=== PATIENT | male | born 1960 | race Caucasian/White ===

== ENCOUNTER 2024-08-02 14:37 | Emergency (ER) | payer OTHER, MEDICARE, MEDICAID, SELFPAY ==
[2024-08-02] VITALS (7 sets, daily range): BP systolic 110–137; BP diastolic 72–84; PULSE 84–102; RESP 14–16; TEMP 36.8; O2SAT 97–99; BMI 29.0
[2024-08-02 15:22] LABS: MANUAL DIFF FLAG NO
[2024-08-02 15:29] LABS: Basophils Percent Auto 0.6 % (0-2); Eosinophils Absolute Auto 0.3 X10*3/uL (0.0-0.4); Eosinophils Percent Auto 4.1 % (0-4); Hematocrit 33.5 % (42.0-52.0); Hemoglobin 11.8 g/dl (14.0-18.0); Imm Gran Abs Auto 0.02 X10*3/uL (0.00-0.03); Imm Gran Pct Auto 0.3 % (0.0-0.4); Lymphocytes Absolute Auto 1.2 X10*3/uL (1.2-4.9); Lymphocytes Percent Auto 18.1 % (20-40); Mean Corpuscular HGB Conc 35.2 g/dl (31.0-36.0); Mean Corpuscular Hemoglobin 33.2 pg (27.0-33.0); Mean Corpuscular Volume 94.4 fL (80.0-98.0); Mean Platelet Volume 10.4 fL (9.4-12.4); Monocytes Absolute Auto 0.7 X10*3/uL (0.1-1.2); Neutrophils Absolute Auto 4.4 x10*3/uL (2.0-8.3); Neutrophils Percent Auto 65.9 % (45-73); Platelet Count 146 X10*3/uL (160-400); Red Blood Count 3.55 X10*6/uL (4.60-5.80); Red Cell Distribution Width 16.6 % (11.0-16.0); White Blood Count 6.6 X10*3/uL (4.8-10.8)
--- OUTSIDE RECORDS SUMMARY | 2024-08-02 15:45 | XMS_ITS | Continuity of Care Document ---
Author Organization [facility] ter Address [address] [place] [id number]- Care Team Providers Care Home Energy Inspector Name Role Phone Not on Staff, PCP Primary Care Physician Unavail able Encounter [facility] Date(s): 01/13/24 - 01/14/[address] [address]- Encounter Diagnosis Osteoarthritis(Final) - 01/14/24 Discharge Disposition: A-D/C Home Attending Physician: Ltaricia Menendez DO Admitting Physician: Latricia Menendez DO Referring Physician: Not on Staff, Referring MD Allergies, Adverse Reactions, Alerts Substance Reaction Severity Status morphine Active Percocet 7.5/325 Active Immunizations Given and Recorded Vaccine Date Status Refusal Reason influenza virus vaccine, inactivated 08/27/23 Give n influenza virus vaccine, inactivated 09/04/19 Caleb rded tetanus/diphtheria/pertussis, acel(Tdap) 09/04/19 Recorded tetanus/diphtheria/pertussis, acel(Tdap) 10/28/13 Recorded Medications acamprosate 333 mg oral delayed release tablet 2 tablet = 666 mg, By Mouth, 3 times a day, # 180 tablet, 0 Refills, Maintenance, 08/28/23 10:01:00EDT, CR Tablet, [facility], Partial fill upon patient request if the prescription is for a schedule II opioid drug., 175, cm, 08/28/23 7:... Start Date: 08/28/23 Stop Date: 09/27/23 Status: Ordered divalproex sodium 250 mg oral enteric coated tablet = 250 mg, By Mouth, 2 times a day, # 120 tablet, 0 Refills, Maintenance, 08/28/23 9:58:00 EDT, Tablet, [facility], Partial fill upon patient request if the prescription is for a schedule II opioid drug., 175, cm, 08/28/23 7:33:00 EDT, He... Start Date: 08/28/23 Stop Date: 10/27/23 Status: Ordered levothyroxine 0.1 mg oral tablet = 200 mcg, By Mouth, Daily, Dose will be adjusted according to repeat lab. Lab to be done in 4 weeks., # 120 tablet, 0 Refills, Maintenance, 08/28/23 9:58:00 EDT, Tablet, [facility], Partial fill upon patient request if the prescription... Start Date: 08/28/23 Stop Date: 10/27/23 Status: Ordered potassium chloride 20 mEq oral tablet, extended release 1 tablet = 20 mEq, By Mouth, Daily, # 7 tablet, 0 Refills, Maintenance, 01/14/24 13:41:00 EST, ER Tablet, [facility], Partial fill upon patient request if the prescription is for a schedule II opioid drug., 175, cm, 08/28/23 10:58:00 EDT... Start Date: 01/14/24 Stop Date: 01/21/24 Status: Ordered risperiDONE 0.25 mg oral tablet 0.25 mg, 1, tablet, By Mouth, Daily at bedtime, # 4 tablet, Refills 0, Tot. Refills 0, Maintenance,08/28/23 9:59:00 EDT, Route to Pharmacy Electronically, [facility], Partial fill uponpatient request if the prescription is for a schedu... Start Date: 08/28/23 Stop Date: 09/01/23 Status: Ordered Walker See Instructions, # 1 each, Maintenance, Use when ambulating for unsteady gait, 01/14/24 13:46:00 EST, Supply Start Date: 01/14/24 Status: Ordered Walker See Instructions, # 1 each, Maintenance, Use when ambulating for unsteady gait, 01/14/24 13:48:00 EST, Supply Start Date: 01/14/24 Status: Ordered Problem List Condition Confirmation Course Effective Dates Status Health St atus Informant Alcohol 1 Confirmed Active Anemia Confirmed Active Bipolar disease, chronic Confirmed Active PE - Pulmonary embolism Confirmed Active Post traumatic stress disorder (PTSD) Confirmed Active Tobacco user Confirmed Active 1abuse Results Radiology Reports * Exam Date Time Procedure Performing Provider Status 01/13/24 4:25 PM Chest 2 Views Frontal and Lat Eleanor Hand; Auth (Verified) Notes: (Chest 2 Views Frontal and Lat) Reason For Exam: Cough RESULT: Chest 2 Views Frontal and Lat Chest 2 Views Frontal and Lat INDICATION/CLINICAL QUESTION: Hx of Present Illness: Falls weakness, ETOH; Reason: Cough; Clinical Question(s): Pneumonia / Pneumonia TECHNIQUE: Frontal and lateral views of the chest. COMPARISON: 08/24/2023. FINDINGS: LINES AND TUBES: None. LUNGS AND PLEURA: RIGHT CHEST: The right lung is clear and there is no right effusion. LEFT CHEST: The left lung is clear and there is no left effusion. HEART, MEDIASTINUM AND DEBBIE: The heart is of normal size. The mediastinum and debbie are normal. BONES AND SOFT TISSUES: Fracture middle third left clavicle. This was present previously. No new bony abnormality. IMPRESSION: 1. No active disease in chest. WSN: [id number] Ordering Physician: Balta Mathis Dictated By: Venkat Bonner MD Dictated Date/Time: 01/13/24 4:45 pm Reviewed By: Venkat Bonner MD Signed By: Venkat Bonner MD Signed Date/Time: 01/13/24 4:45 pm Transcribed By: BELKYS Transcribed Date/Time: 01/13/24 4:43 pm * Exam Date Time Procedure Performing Provider Status 01/13/24 2:39 PM XR Hip Bilat 2 Views W/AP Pelvis Angela Lucia; Omega (Verified) Notes: (XR Hip Bilat 2 Views W/AP Pelvis) Reason For Exam: Trauma RESULT: Hip Bilat 2 Views W/ AP Pelvis Hip Bilat 2 Views W/ AP Pelvis Reason: Weakness and fall; Trauma; Clinical Question(s): Fracture COMPARISON: None. FINDINGS: No fracture or dislocation. Moderate degenerative joint space narrowing of the bilateral hip and sacroiliac joints. Normal soft tissues. IMPRESSION: Degenerative changes of the hips and sacroiliac joints without evidence of an acute fracture or dislocation. I have personally reviewed the images and I agree with this report. WSN: [id number] Ordering Physician: Balta Mathis Dictated By: Frantz Lucas MD Dictated Date/Time: 01/13/24 3:07 pm Reviewed By: Omar Jones MD, V Signed By: Omar Jones MD, V Signed Date/Time: 01/13/24 3:12 pm Transcribed By: BELKYS Transcribed Date/Time: 01/13/24 3:04 pm * Exam Date Time Procedure Performing Provider Status 01/13/24 2:39 PM Knee 1 or 2 Views Left Jose Loera; Auth (Verified) Notes: (Knee 1 or 2 Views Left) Reason For Exam: Trauma RESULT: Knee 1 or 2 Views Left Knee 1 or 2 Views Left, 2 views Hx of Present Illness: Falls weakness, ETOH; Reason: Trauma; Clinical Question(s): Fracture COMPARISON: None. FINDINGS: No bone lesions or fractures. Mild tricompartmental degenerative osteoarthritis but no evidence of osteochondral defect or intra-articular loose body. No evidence of joint effusion. Minimal arterial calcifications posteriorly. IMPRESSION: Mild tricompartmental degenerative osteoarthritis but no acute abnormality. WSN: [id number] Ordering Physician: Balta Mathis Dictated By: Omar Jones MD, V Dictated Date/Time: 01/13/24 2:43 pm Reviewed By: Omar Jones MD, V Signed By: Omar Jones MD, V Signed Date/Time: 01/13/24 2:43 pm Transcribed By: BELKYS Transcribed Date/Time: 01/13/24 2:43 pm * Exam Date Time Procedure Performing Provider Status 01/13/24 2:39 PM Knee 1 or 2 Views Right Maryam Loera; Auth (Verified) Notes: (Knee 1 or 2 Views Right) Reason For Exam: Trauma RESULT: Knee 1 or 2 Views Right Knee 1 or 2 Views Right, 2 views Hx of Present Illness: Falls weakness, ETOH; Reason: Trauma; Clinical Question(s): Fracture COMPARISON: None. FINDINGS: No bone lesions or fractures. Mild tricompartmental degenerative osteoarthritis but no evidence of osteochondral defect or intra-articular loose body. No evidence of joint effusion. IMPRESSION: Mild tricompartmental degenerative osteoarthritis but no acute abnormality. WSN: [id number] Ordering Physician: Balta Mathis Dictated By: Omar Jones MD, V Dictated Date/Time: 01/13/24 2:42 pm Reviewed By: Omar Jones MD, V Signed By: Omar Jones MD, V Signed Date/Time: 01/13/24 2:42 pm Transcribed By: BELKYS Transcribed Date/Time: 01/13/24 2:42 pm * Exam Date Time Procedure Performing Provider Status 01/13/24 2:[address] Cervical Spine W/O Contrast Lolita Echeverria; Auth (Verified) Notes: (CT Cervical Spine W/O Contrast) Reason For Exam: Trauma RESULT: CT Cervical Spine W/O Contrast Examination: Noncontrast head CT and noncontrast CT of the cervical spine performed on 01/13/2024. History: Falls. Weakness. Ethanol. Technique and findings: Noncontrast head CT: Contiguous 5 mm axial images were obtained from the skull base to the vertex without intravenous contrast. A dose modulated weight-based protocol was used. Comparison is made to a prior study dated 08/24/2023. The visualized sinuses are free from disease. The ventricular system and subarachnoid spaces are within normal limits. There is no intracranial hemorrhage, mass effect, or midline shift. No intra- or extra-axial fluid collections are identified. The osseous structures are unremarkable. Noncontrast CT of the cervical spine: Contiguous axial images were obtained from the skull base through the thoracic inlet without intravenous contrast. Sagittal and coronal reformatted images are provided. A dose modulated weight-based protocol was used. No fractures are demonstrated. There is no malalignment. There is no traumatic disc herniation or epidural hematoma. Deformity of the left clavicle is consistent with prior trauma. The lung apices are unremarkable. IMPRESSION: There is no acute intracranial abnormality. There is no acute osseous abnormality within the cervical spine. WSN: [id number] Ordering Physician: Balta Mathis Dictated By: Nely Landis MD Dictated Date/Time: 01/13/24 2:12 pm Reviewed By: Nely Landis MD Signed By: Nely Landis MD Signed Date/Time: 01/13/24 2:12 pm Transcribed By: BELKYS Transcribed Date/Time: 01/13/24 2:08 pm * Exam Date Time Procedure Performing Provider Status 01/13/24 2:[address] Head/Brain W/O Contrast Jeison Echeverria; Auth (Verified) Notes: (CT Head/Brain W/O Contrast) Reason For Exam: Trauma RESULT: CT Head/Brain W/O Contrast Examination: Noncontrast head CT and noncontrast CT of the cervical spine performed on 01/13/2024. History: Falls. Weakness. Ethanol. Technique and findings: Noncontrast head CT: Contiguous 5 mm axial images were obtained from the skull base to the vertex without intravenous contrast. A dose modulated weight-based protocol was used. Comparison is made to a prior study dated 08/24/2023. The visualized sinuses are free from disease. The ventricular system and subarachnoid spaces are within normal limits. There is no intracranial hemorrhage, mass effect, or midline shift. No intra- or extra-axial fluid collections are identified. The osseous structures are unremarkable. Noncontrast CT of the cervical spine: Contiguous axial images were obtained from the skull base through the thoracic inlet without intravenous contrast. Sagittal and coronal reformatted images are provided. A dose modulated weight-based protocol was used. No fractures are demonstrated. There is no malalignment. There is no traumatic disc herniation or epidural hematoma. Deformity of the left clavicle is consistent with prior trauma. The lung apices are unremarkable. IMPRESSION: There is no acute intracranial abnormality. There is no acute osseous abnormality within the cervical spine. WSN: [id number] Ordering Physician: Balta Mathis Dictated By: Nely Landis MD Dictated Date/Time: 01/13/24 2:12 pm Reviewed By: Nely Landis MD Signed By: Nely Landis MD Signed Date/Time: 01/13/24 2:12 pm Transcribed By: BELKYS Transcribed Date/Time: 01/13/24 2:08 pm Vital Signs Most recent to oldest [Reference Range]: 1 2 3 Oxygen Saturation [94-100 %] 97 % (01/14/24 11:55 AM) 95 % (01/14/24 8:47 AM) 98 % (01/14/24 6:28 AM) Pulse Rate [55-90 bpm] 93 bpm *H* (01/14/24 11:55 AM) 84 bpm (01/14/24 8:47 AM) 81 bpm (01/14/24 6:28 AM) Blood Pressure [90-138/55-84 mm Hg] 127/101mm Hg (01/14/24 11:55 AM) 130/90mm Hg (01/14/24 8:47 AM) 142/97mm Hg *H* (01/14/24 6:28 AM) Respiratory Rate [16-30 br/min] 16 br/min (01/14/24 11:55 AM) 18 br/min (01/14/24 8:47 AM) 22 br/min (01/14/24 6:28 AM) Temperature [96.8-100.4 DegF] 98.4 DegF (01/14/24 8:47 AM) 98.6 DegF (01/14/24 6:28 AM) 97.9 DegF (01/13/24 7:59 PM) Mode of Delivery (Oxygen) Room air (01/14/24 11:55 AM) Room air (01/14/24 8:47 AM) Room air (01/14/24 6:28 AM) Temperature Route Oral (01/14/24 8:47 AM) Oral (01/14/24 6:28 AM) Oral (01/13/24 7:59 PM) Social History Social History Type Response Smoking Status 10 or more cigarette s (1/2 pack or more)/day in last 30 days entered on: 05/12/19 Sex Note * Latricia Menendez DO: PERFORM Event Display: Patient Education Leaflets Authored Date: [id number] Physical Therapy Referral ?? 250 ?? This page is FOR PRESCRIBERS Only, ? DO NOT GIVE TO THE PATIENT?? Physical Therapy Referral Program for Management of Pain In an effort to reduce narcotic use, some of our ED patients will benefit from a direct referral torehab care.?? [facility] will see INSURED patients and has a system in place to avoid sending follow up paperwork to the ED prescribers.? Note: Non-[facility] physical therapy services will probably NOT be able to handle ED generated PT referrals. ?? Patients should still follow up with their PCP as soon as possible regarding their ongoing care. Inform patients that [facility] will discuss insurance when they call.?? Some insurance plans limit the amount of PT a patient can receive each year. ?? Complete the FIRST PAGE of the patient???s referral sheet. [place] or write in diagnosis. M odify the timing for treatment, if needed. List any major precautions (i.e.?? Non-weight bearing limb), if needed. Sign, date and print your name at the bottom. ? Physical Therapy Referral Form Patient Instructions: You are being referred to physical therapy.?? This form is your referral and MUST be brought to your appointment. You need to call to set up your appointment. ?? This form can be used at any [facility] location.?? A list of locations is attached.?? 1)?? DIAGNOSIS/ICD-10 (king salmon one) Cervicalgia: M54.2 ? Strain of muscle, fascia and tendon at neck level: S16.1XXD? Radiculopathy, cervical region: M54.12? Mid back pain: M54.9 ? Low back pain:?? M54.5 Strain of muscle, fascia and tendon of lower back: S39.012D Radiculopathy, lumbosacral region: M54.17 Other:? 2)? [? ]? Evaluate and Treat 2 Times/Week for 4 weeks as needed [? ]?Other: 3)? [? ]? No Precautions [? ]?Precautions: ?? I hereby certify these services as medically necessary for the patient???s plan of care. Physician???s Signature Date Physician Name (printed)? Locations You can call any location below.?? Tell them you were seen in a [facility] and have a referral form.?? Remember to bring your referral form with you to the appointment. [place] [address]? [place] [address] [address] [facility], [address]? [address] ? [place] [address]? [place] [address] [place] [address]? [address] ? [place] [address]? [place] [address] [address] ? [place] [address]? [facility] [address] [address] ? * Latricia Menendez DO: PERFORM Event Display: Patient Education Leaflets Authored Date: [id number] Physical Therapy Referral ?? 250 ?? This page is FOR PRESCRIBERS Only, ? DO NOT GIVE TO THE PATIENT?? Physical Therapy Referral Program for Management of Pain In an effort to reduce narcotic use, some of our ED patients will benefit from a direct referral torehab care.?? [facility] will see INSURED patients and has a system in place to avoid sending follow up paperwork to the ED prescribers.? Note: Non-[facility] physical therapy services will probably NOT be able to handle ED generated PT referrals. ?? Patients should still follow up with their PCP as soon as possible regarding their ongoing care. Inform patients that [facility] will discuss insurance when they call.?? Some insurance plans limit the amount of PT a patient can receive each year. ?? Complete the FIRST PAGE of the patient???s referral sheet. [place] or write in diagnosis. M odify the timing for treatment, if needed. List any major precautions (i.e.?? Non-weight bearing limb), if needed. Sign, date and print your name at the bottom. ? Physical Therapy Referral Form Patient Instructions: You are being referred to physical therapy.?? This form is your referral and MUST be brought to your appointment. You need to call to set up your appointment. ?? This form can be used at any [facility] location.?? A list of locations is attached.?? 1)?? DIAGNOSIS/ICD-10 (king salmon one) Cervicalgia: M54.2 ? Strain of muscle, fascia and tendon at neck level: S16.1XXD? Radiculopathy, cervical region: M54.12? Mid back pain: M54.9 ? Low back pain:?? M54.5 Strain of muscle, fascia and tendon of lower back: S39.012D Radiculopathy, lumbosacral region: M54.17 Other:? 2)? [? ]? Evaluate and Treat 2 Times/Week for 4 weeks as needed [? ]?Other: 3)? [? ]? No Precautions [? ]?Precautions: ?? I hereby certify these services as medically necessary for the patient???s plan of care. Physician???s Signature Date Physician Name (printed)? Locations You can call any location below.?? Tell them you were seen in a [facility] and have a referral form.?? Remember to bring your referral form with you to the appointment. [place] [address]? [place] [address] [address] [facility], [address]? [address] ? [place] [address]? [place] [address] [address] [facility]? [address] ? [place] [address]? [place] [address] ? [place] [address]? [facility] [address] ? * Latricia Menendez DO: PERFORM Event Display: Patient Education Leaflets Authored Date: Alcohol Abuse ?? [id number] Alcohol Abuse Alcoholic drinks harm you when you have too many of them. No set number of drinks means too much. Drinking that affects your life or your health is called alcohol abuse. Alcohol abuse can hurt your relationships with others. You may lose friends, a spouse, or even your job. You may be abusing alcohol if any of the following are true for you: ??? Duties at home or with early childhood specialist suffer because of drinking. ??? Duties at work or in school suffer because of drinking. ??? You have missed work or school because of drinking. ??? You use alcohol while driving or using machinery. ??? You have legal problems such as arrests because of drinking. ??? You keep drinking even though it causes serious problems in your life. Health problems Alcohol abuse causes many health problems.??Sometimes this can happen after only drinking a ???little. ??The effects depend on how much you drink at one time and how often you drink. The effects also depend on how long you drink. For example, months, years, or decades.??Alcohol affects all parts of your body Brain Alcohol affects the central nervous system. It can damage parts of the brain that control your balance and gait, memory, thinking, and emotions. It can cause: ??? Memory loss ??? Blackouts ??? Depression ??? Agitation ??? Sleep problems ??? Seizures These changes may be terminal gauger supervisor (permanent). Heart and blood vessels Alcohol can damage heart muscle (cardiomyopathy). This can lead to: ??? Trouble breathing ??? Irregular heartbeat ??? Atrial fibrillation ??? Leg swelling ??? Heart failure Alcohol also makes the blood vessels stiff. This causes high blood pressure. All of these problems raise your risk of having a heart attack or stroke. Liver Alcohol causes fat to build up in the liver. This affects how the liver works. Alcohol also raises the risk for hepatitis. It can cause: ??? Belly (abdominal) pain ??? Belly swelling ??? Loss of appetite ??? Yellowed eyes or skin (jaundice) ??? Bleeding problems ??? Cirrhosis This can make it harder for you to fight off infections. The liver changes keep it from removing toxins in your blood that can cause brain disease (encephalopathy). This condition cause: ??? Confusion ??? Changed level of consciousness ??? Personality changes ??? Memory loss ??? Seizures, coma, and The liver changes can also cause the veins in your esophagus and stomach to become thin and swollenwith blood (varices). This can cause bleeding and vomiting of blood. Pancreas Alcohol can cause swelling (inflammation) of the pancreas (pancreatitis). This can cause belly pain, fever, and diabetes. Immune system Alcohol weakens your immune system. This makes it harder for you to fight infections and colds. It also makes it more likely for you to get pneumonia and tuberculosis. Cancer Alcohol raises the risk for several types of cancer. These include cancer of the mouth, esophagus, pharynx, larynx, liver, and breast. Sexual function Alcohol can lead to sexual problems. ?? Home care These guidelines will help you deal with alcohol abuse: ??? Admit you have a problem with alcohol. ??? Ask for help from your healthcare provider. Also ask for help from trusted family members or close friends. ??? Get help from people trained in dealing with alcohol abuse. This may be one-on-one counseling or group therapy. Or it may be an alcohol treatment program. ??? Join a self-help group for alcohol abuse such as Alcoholics Anonymous. ??? Stay away from people who abuse alcohol or tempt you to drink. ?? Follow-up care Follow up with your healthcare provider, or as advised. Contact these groups to get help: ??? Alcoholics Anonymous (AA) at www.aa.org. Or check the phone book for meetings near you. ??? National Alcohol and Substance Abuse Information Center (NASAIC) at www.[employer] or 372-270-0803 ??? National [place] on Alcoholism and Drug Dependence (NCADD) at www.ncadd.org or 619-TPV-TPKY (337-575-5351) ?? Call 911 Call 911 if any of these occur: ??? Trouble breathing or slow, irregular breathing ??? Chest pain ??? Sudden weakness on one side of your body or sudden trouble speaking ??? Heavy bleeding or vomiting blood ??? Very drowsy or trouble awakening ??? Fainting or loss of consciousness ??? Rapid heart rate ??? Seizure ?? When to seek medical care Call your healthcare provider right away if any of these occur:? Confusion ??? Seeing, hearing, or feeling things that aren???t there (hallucinations) ??? Pain in your upper belly that gets worse ??? Vomiting that continues, vomiting with blood, or black or tarry stools ??? Severe shakiness ?? Last Reviewed Date: 2021 ?? 7859-9365 [employer]. All rights reserved. This information is not intended as a substitute for professional medical care. Always follow your healthcare professional's instructions. ?? Patient Care team information Care Team Personnel Name: Aarti Ley RN Position: [facility] SN RN Member Role: Primary Care Nurse Name: Not on Staff, PCP Position: [facility] Physician (General Medicine) Member Role: PCP Care Team Related Persons Name: RUTHIE MIXON Address: home [address] [address] [place] [address] Name: CHELSEA YEPEZ Address: home [address] [place] [address]
--- OUTSIDE RECORDS SUMMARY | 2024-08-02 15:45 | XMS_ITS | Continuity of Care Document ---
Author Organization [facility] ter Address [address] [place] [id number]- Care Team Providers Care Console Assembler Name Role Phone Not on Staff, PCP Primary Care Physician Unavail able Encounter [facility] Date(s): 07/02/24 - 07/03/[address] [address]- Encounter Diagnosis Wernicke encephalopathy(Final) - 07/01/24 Ataxia(Final) - 07/01/24 Hallucinations(Final) - 07/01/24 Suicidal ideation(Final) - 07/01/24 Discharge Disposition: A-D/C Home Attending Physician: Shelly Shane MD Admitting Physician: Kevin Cole MD Referring Physician: Not on Staff, Referring MD Allergies, Adverse Reactions, Alerts Substance Reaction Severity Status morphine Active Percocet 7.5/325 Active Immunizations Given and Recorded Vaccine Date Status Refusal Reason influenza virus vaccine, inactivated 08/27/23 Give n influenza virus vaccine, inactivated 09/04/19 Caleb rded tetanus/diphtheria/pertussis, acel(Tdap) 09/04/19 Recorded tetanus/diphtheria/pertussis, acel(Tdap) 10/28/13 Recorded Medications divalproex sodium 250 mg oral enteric coated tablet = 250 mg, By Mouth, 2 times a day, # 180 tablet, 0 Refills, Maintenance, 07/03/24 11:41:00 EDT, Tablet, [facility], Partial fill upon patient request if the prescription is for a schedule II opioid drug., 175, cm, 08/28/23 10:58:00 EDT,... Start Date: 07/03/24 Stop Date: 10/01/24 Status: Ordered folic acid 1 mg oral tablet 1 mg, By Mouth, Daily, # 30 tablet, Refills 0, Tot. Refills 0, Maintenance, 07/03/24 11:43:00 EDT, Route to Pharmacy Electronically, [facility], Partial fill upon patient request if theprescription is for a schedule II opioid drug., 175... Start Date: 07/03/24 Stop Date: 08/02/24 Status: Ordered levothyroxine 175 mcg (0.175 mg) oral tablet = 175 mcg, By Mouth, Daily, # 90 tablet, 0 Refills, Maintenance, 07/03/24 11:42:00 EDT, Tablet, [facility], Partial fill upon patient request if the prescription is for a schedule II opioid drug., 175, cm, 08/28/23 10:58:00 EDT, Height,... Start Date: 07/03/24 Stop Date: 10/01/24 Status: Ordered risperiDONE 0.25 mg oral tablet 0.25 mg, 1, tablet, By Mouth, Daily at bedtime, # 90 tablet, Refills 0, Tot. Refills 0, Maintenance, 07/03/24 11:42:00 EDT, Route to Pharmacy Electronically, [facility], Partial fill upon patient request if the prescription is for a sche... Start Date: 07/03/24 Stop Date: 10/01/24 Status: Ordered Therapeutic Multiple Vitamins with Minerals oral tablet, chewable 1 tablet, By Mouth, Daily, # 30 tablet, 0 Refills, Maintenance, 07/03/24 11:43:00 EDT, Chew Tablet,[facility], Partial fill upon patient request if the prescription is for a schedule II opioid drug., 1 tablet By Mouth Daily,x30 days, 17... Start Date: 07/03/24 Stop Date: 08/02/24 Status: Ordered thiamine 100 mg oral tablet 100 mg, By Mouth, 2 times a day, for 60 days, # 120 tablet, Refills 0, Tot. Refills 0, Acute 09/01/24 11:44:00 EDT, 07/03/24 11:44:00 EDT, Route to Pharmacy Electronically, [facility], Partial fill upon patient request if the prescriptio... Start Date: 07/03/24 Stop Date: 09/01/24 Status: Ordered Walker See Instructions, # 1 [...] Exam Date Time Procedure Performing Provider Status 07/01/24 1:[address] Head/Brain W/O Contrast Mame , Katlyn een; Auth (Verified) Notes: (CT Head/Brain W/O Contrast) Reason For Exam: Brain mass or lesion;Other: RESULT: CT Head/Brain W/O Contrast CT Head/Brain W/O Contrast INDICATION: Pt with SI, insomnia, and nonmed compliance.; Reason: Other:; Brain mass or lesion; Clinical Question(s): Hematoma. TECHNIQUE: Noncontrast head CT using axial technique and reconstructed in axial and coronal planes.Iterative reconstruction techniques are used to optimize dose and image quality. CTDIvol Body: 11.60 mGy, DLP Body: 366 mGy*cm. CTDIvol Head: 48.00 mGy, DLP Head: 773 mGy*cm. COMPARISON: Head CT dated 01/13/2024. FINDINGS: Personnel Monitor view findings, lines and tubes: None. BRAIN AND EXTRA-AXIAL SPACES: No parenchymal hemorrhage, midline shift, or mass effect. Bacon-white matter differentiation is wellpreserved. No acute infarct. Mild prominence of the ventricles and sulci consistent with parenchymal volume loss. Mild low-density white matter changes. No subarachnoid hemorrhage. No subdural or epidural collection. CALVARIUM, SKULL BASE, AND SOFT TISSUES: No fractures or suspicious bony lesions. The paranasal sinuses and mastoid air cells are clear. Visualized orbits and globes are intact. The extracranial soft tissues are unremarkable. IMPRESSION: No acute intracranial pathology. WSN: [id number] Ordering Physician: Marilyn Barksdale Dictated By: Loraine Leigh MD Dictated Date/Time: 07/01/24 1:56 pm Reviewed By: Loraine Leigh MD Signed By: Loraine Leigh MD Signed Date/Time: 07/01/24 1:56 pm Transcribed By: BELKYS Transcribed Date/Time: 07/01/24 1:38 pm * Exam Date Time Procedure Performing Provider Status 07/01/24 1:[address] Angio Neck Judy Vilchis; Auth (Ve rified) Notes: (CT Angio Neck) Reason For Exam: Other: RESULT: CT Angio Neck CT Angio Head, CT Angio Neck Hx of Present Illness: Pt with SI, insomnia, and nonmed compliance.; Reason: TIA; Clinical Question(s): Infarction / Infarction TECHNIQUE: CT angiogram of the head and neck was performed after bolus administration of intravenous contrast. 100 mL of Omnipaque 300 was administered intravenously. Coronal and sagittal MIP reformatted images were obtained. Additional 3-D images were created on a separate workstation under concurrent supervision by the attending radiologist. All stenoses are measured using NASCET criteria. Weight-based protocol using automatic tube modulation was used to optimize exposure parameters. RADIATION DOSE PARAMETERS: CTDIvol Body: 11.60 mGy, DLP Body: 366 mGy*cm. CTDIvol Head: 48.00 mGy, DLP Head: 773 mGy*cm. COMPARISON: Noncontrast CT head performed concurrently. FINDINGS: CTA OF THE NECK: Arch: Aortic arch is below the field of view. There is mild atherosclerotic plaque of the proximal left subclavian artery with no high-grade stenosis. Proximal brachiocephalic and left common carotidarteries are patent. Right carotid system: The common carotid and cervical internal carotid arteries are patent. There is calcified atherosclerotic plaque at the carotid bifurcation, resulting in severe ICA origin stenosis (70%) by NASCET criteria. There is no dissection or aneurysm. Left carotid system: The common carotid and cervical internal carotid arteries are patent. There iscalcified atherosclerotic plaque at the carotid bifurcation, but no ICA stenosis (0%) by NASCET criteria. There is no dissection or aneurysm. There is a left-dominant vertebral artery system. Right vertebral: There is calcified atherosclerotic plaque at the origin but no significant stenosis. There is no dissection or aneurysm. Left vertebral: There is calcified atherosclerotic plaque at the origin but no significant stenosis. There is no dissection or aneurysm. Other: Soft tissues and bones: No evidence of lymphadenopathy or mass. The thyroid is heterogeneous and atrophic, without discrete nodularity. Visualized lung apices are clear. Multilevel degenerative changes of the spine are noted. 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 No acute osseous abnormality. CTA OF THE HEAD: Anterior circulation: Bilateral intracranial ICAs demonstrate atherosclerotic calcification, without stenosis. Bilateral CAITLIN and MCA branches are patent. There is no significant stenosis, proximal cutoff, aneurysm, or vascular malformation. Posterior circulation: Bilateral vertebral arteries, the basilar artery, and bilateral PICA, SCA, and CANDY STARCH MOLD PRINTER branches are patent. There is supply to the right CANDY STARCH MOLD PRINTER with hypoplastic right P1 segment. There is no significant stenosis, proximal cutoff, aneurysm, or vascular malformation. Veins: The major dural venous sinuses are not well opacified due to early phase of contrast enhancement. Other: Soft tissues and bones: No midline shift or effacement of the basal cisterns. No space-occupying hemorrhage. No territorial loss of bacon-white matter differentiation. Orbits are unremarkable. Minimal mucosal thickening in the inferior maxillary sinuses. Otherwise nosignificant opacification in the paranasal sinuses or mastoid air cells. IMPRESSION: 1. No large vessel occlusion in the head or neck. 2. Severe stenosis of the right cervical ICA origin (70% by NASCET criteria). WSN: [id number] Ordering Physician: Marilyn Barksdale Dictated By: Suzanne Swenson MD Dictated Date/Time: 07/01/24 2:53 pm Reviewed By: Suzanne Swenson MD Signed By: Suzanne Swenson MD Signed Date/Time: 07/01/24 2:53 pm Transcribed By: BELKYS Transcribed Date/Time: 07/01/24 1:40 pm * Exam Date Time Procedure Performing Provider Status 07/01/24 1:[address] Angio Head Judy Vilchis; Auth (Ve rified) Notes: (CT Angio Head) Reason For Exam: TIA RESULT: CT Angio Head CT Angio Head, CT Angio Neck Hx of Present Illness: Pt with SI, insomnia, and nonmed compliance.; Reason: TIA; Clinical Question(s): Infarction / Infarction TECHNIQUE: CT angiogram of the head and neck was performed after bolus administration of intravenous contrast. 100 mL of Omnipaque 300 was administered intravenously. Coronal and sagittal MIP reformatted images were obtained. Additional 3-D images were created on a separate workstation under concurrent supervision by the attending radiologist. All stenoses are measured using NASCET criteria. Weight-based protocol using automatic tube modulation was used to optimize exposure parameters. RADIATION DOSE PARAMETERS: CTDIvol Body: 11.60 mGy, DLP Body: 366 mGy*cm. CTDIvol Head: 48.00 mGy, DLP Head: 773 mGy*cm. COMPARISON: Noncontrast CT head performed concurrently. FINDINGS: CTA OF THE NECK: Arch: Aortic arch is below the field of view. There is mild atherosclerotic plaque of the proximal left subclavian artery with no high-grade stenosis. Proximal brachiocephalic and left common carotidarteries are patent. Right carotid system: The common carotid and cervical internal carotid arteries are patent. There is calcified atherosclerotic plaque at the carotid bifurcation, resulting in severe ICA origin stenosis (70%) by NASCET criteria. There is no dissection or aneurysm. Left carotid system: The common carotid and cervical internal carotid arteries are patent. There iscalcified atherosclerotic plaque at the carotid bifurcation, but no ICA stenosis (0%) by NASCET criteria. There is no dissection or aneurysm. There is a left-dominant vertebral artery system. Right vertebral: There is calcified atherosclerotic plaque at the origin but no significant stenosis. There is no dissection or aneurysm. Left vertebral: There is calcified atherosclerotic plaque at the origin but no significant stenosis. There is no dissection or aneurysm. Other: Soft tissues and bones: No evidence of lymphadenopathy or mass. The thyroid is heterogeneous and atrophic, without discrete nodularity. Visualized lung apices are clear. Multilevel degenerative changes of the spine are noted. 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 No acute osseous abnormality. CTA OF THE HEAD: Anterior circulation: Bilateral intracranial ICAs demonstrate atherosclerotic calcification, without stenosis. Bilateral CAITLIN and MCA branches are patent. There is no significant stenosis, proximal cutoff, aneurysm, or vascular malformation. Posterior circulation: Bilateral vertebral arteries, the basilar artery, and bilateral PICA, SCA, and CANDY STARCH MOLD PRINTER branches are patent. There is supply to the right CANDY STARCH MOLD PRINTER with hypoplastic right P1 segment. There is no significant stenosis, proximal cutoff, aneurysm, or vascular malformation. Veins: The major dural venous sinuses are not well opacified due to early phase of contrast enhancement. Other: Soft tissues and bones: No midline shift or effacement of the basal cisterns. No space-occupying hemorrhage. No territorial loss of bacon-white matter differentiation. Orbits are unremarkable. Minimal mucosal thickening in the inferior maxillary sinuses. Otherwise nosignificant opacification in the paranasal sinuses or mastoid air cells. IMPRESSION: 1. No large vessel occlusion in the head or neck. 2. Severe stenosis of the right cervical ICA origin (70% by NASCET criteria). WSN: [id number] Ordering Physician: Marilyn Barksdale Dictated By: Suzanne Swenson MD Dictated Date/Time: 07/01/24 2:53 pm Reviewed By: Suzanne Swenson MD Signed By: Suzanne Swenson MD Signed Date/Time: 07/01/24 2:53 pm Transcribed By: BELKYS Transcribed Date/Time: 07/01/24 1:40 pm * Exam Date Time Procedure Performing Provider Status 07/01/24 12:47 PM Chest 2 Views Frontal and Lat Bhavya Hernandez; Omega (Verified) Notes: (Chest 2 Views Frontal and Lat) Reason For Exam: Shortness of Breath RESULT: Chest 2 Views Frontal and Lat Examination: Chest performed on 07/01/2024. History: Shortness of breath. Findings: Frontal and lateral views of the chest are compared to a prior study dated 01/13/2024. The cardiac and mediastinal silhouettes are within normal limits. The lungs are clear. Deformity ofthe left clavicle is consistent with prior trauma. Impression: There is no acute cardiopulmonary disease. WSN: [id number] Ordering Physician: Marilyn Barksdale Dictated By: Nely Landis MD Dictated Date/Time: 07/01/24 12:49 p Reviewed By: Nely Landis MD Signed By: Nely Landis MD Signed Date/Time: 07/01/24 12:49 pm Transcribed By: BELKYS Transcribed Date/Time: 07/01/24 12:48 pm Vital Signs Most recent to oldest [Reference Range]: 1 2 3 Oxygen Saturation [94-100 %] 98 % (07/03/24 10:26 AM) 98 % (07/03/24 7:52 AM) 97 % (07/03/24 3:34 AM) Pulse Rate [55-90 bpm] 75 bpm (07/03/24 10:26 AM) 67 bpm (07/03/24 7:52 AM) 67 bpm (07/03/24 3:34 AM) Blood Pressure [90-138/55-84 mm Hg] 116/79mm Hg (07/03/24 10:26 AM) 114/75mm Hg (07/03/24 7:52 AM) 106/75mm Hg (07/03/24 3:34 AM) Respiratory Rate [16-30 br/min] 18 br/min (07/03/24 12:26 PM) 18 br/min (07/03/24 10:26 AM) 17 br/min (07/03/24 7:52 AM) Temperature [96.8-100.4 DegF] 97.9 DegF (07/03/24 10:26 AM) 97.6 DegF (07/03/24 7:52 AM) 97.7 DegF (07/03/24 3:34 AM) Mode of Delivery (Oxygen) Room air (07/03/24 10:26 AM) Room air (07/03/24 7:52 AM) Room air (07/03/24 3:34 AM) Blood pressure sites Arm, right (07/03/24 7:52 AM) Arm, right (07/03/24 3:34 AM) Arm, right (07/02/24 10:38 PM) Temperature Route Oral (07/03/24 10:26 AM) Oral (07/03/24 7:52 AM) Oral (07/03/24 3:34 AM) Social History Social History Type Response Smoking Status 10 or more cigarette s (1/2 pack or more)/day in last 30 days entered on: 05/12/19 Sex Consult note * Cole ESPITIA, Maricruz: PERFORM, MODIFY, MODIFY, MODIFY, MODIFY, MODIFY, MODIFY, MODIFY, MODIFY, MODIFY, MODIFY, MODIFY, MODIFY Event Display: Consult Authored Date: [id number] Patient: ??BANDAR YEPEZ ? Age:??63 Years?Sex:??Male?:??1960?? Chief Complaint from home stating that he has had insomnia and high anxiety, SI fo r 4 days. He is convinced that people can read his mind. HX arthritis and PE History of Present Illness Referring Provider:??Dr. Shelly Shane Sources of information:??Patient and chart review Identifying information:?? Reason for hospitalization, medical diagnosis:?? Observation; concern for Wernicke's encephalopathyin setting of nystagmus on exam and ataxia and hypothyroidism. Patient has not been able to take meds for the past 2-3 weeks Psychiatry was consulted for: Patient expressed suicidal ideations for past four days as well as auditory hallucinations ?? 63-year-old male with PMH of alcohol use disorder, bipolar II, hypothyroidism was brought to the EDdue to insomnia, anxiety and suicidal ideation for 4 days. He is currently being treated for concern of Wernicke's encephalopathy receiving high dose??thiamine and hypothyroidism on home levothyroxine. Upon evaluation in ED, he was found to have TSH 140 and T4 0.1. Neurological work up was performed and CT imaging revealed stenosis of the right cervical ICA origin. Neurology was consulted and recommended no further investigation.??Psych was consulted to evaluate reported suicidal ideations and auditory hallucinations. ?? Patient was evaluated by bedside where he was resting comfortably and had no specific concerns at the time. He endorsed that he has??been out of??all home medications for?? more than a few weeks ??and has been unable to obtain refills due to??his arthritis impacting his??stability and lack of car.??He informed that he has had multiple manic and depressive episodes for the past few weeks and feels very low at times where he cannot get out of bed or has had disorganized thinking where he cannotturn off his brain. 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 He endorsed that he just couldn't take it anymore and began to have suicidal id eations because he couldn't control the music. He also stated that he has been having unsteady gaitand changes in vision for few weeks. He went on to say that he has felt very similar symptoms in the past when he has not been taking his medications and feels that it is likely one of the main contributors to why he is here. ?? Patient feels that he is doing much better now and denies having any auditory or visual hallucinations since being admitted to the hospital. He denied current suicidal thoughts. He also said, he has experienced thoughts of suicide when his hallucinations get out of control but knows that he would never actually do it and has never attempted. He also denied having a plan and having firearmsat home. ?? He currently single and??lives alone??in an apartment in [place]. He keeps in touch with his threedaughters via email. Patient endorses daily alcohol drinking of 1-2 L of spiced rum or whiskey every two days as well as??15 hand rolled tobacco cigs per day. He denied all other drug use. He clarified that when he as the meds at home, he is compliant with Depakote, risperidone, and levothyroxine??and feels that his mental health and physical health??is well when on that regimen. He currently does not have??a PCP and endorsed not having visited one since COVID. ? Past Psychiatric History?? Previous diagnoses: Bipolar disorder, depression, anxiety Past hospitalizations: Evaluated for paranoid thoughts in setting of not taking home meds for 2-3 years in August,. As per patient, was at mental health clinic in March 2024. Medication trials:?? - sertraline 100 mg (last filled 03/2020) - Divalproex delayed release 250 mg BID (last filled 2018) - trazodone 50 mg (last filled 2018) - lurasidone 20 mg daily (last filled 2018) - melatonin 10 mg qhs (last filled 2019) Past outpatient providers: no outpatient psychiatrist or therapist; last saw PCP >3 years ago Past suicide attempts: denies ?? Family Psychiatric History - Siblings: Brother has bipolar/schizophrenia and??required long-term hospitalization in locked unit - Extended: Uncle has bipolar disorder ?? Social History?? Born: in [facility] Living situation: Home; apartment in [place] where he lives alone and feels safe Education: Oh I went to school ; unclear beyond that Access to weapons: No access to firearms in home ?? Substance Use History?? - Reports heavy alcohol intake daily for??10 years (1-2L of spice rum or whiskey every two days); last drink was a few days ago - No longer smokes Marijuana; could not remember when he quit or duration - smokes 15 cigarettes (hand rolled at home) x 50 years -??Denies use of illicit substances such as cocaine, heroine, LSD,??PCP ? Psychiatric Review of Systems Depression: Currently denies symptoms. However, did endorse that he has had insomnia, loss of appetite, agitation, and SI in the past week. ?? Marilyn: Currently denies symptoms of marilyn. However, did endorse racing thoughts for the past few weeks ?? Psychosis: Currently denies symptoms of psychosis. However, patient endorsed that he has had auditory and visual hallucinations and disorganized thoughts in the past week. ?? Anxiety: denies increased anxiety, racing thoughts, panic attacks ?? PTSD: denies symptoms of PTSD, such as flashbacks, nightmares, increased vigilance and startle reflex, intrusive thoughts, avoidance of reminders ?? Medical ROS:??A full ROS was completed and was negative with the exception of pertinent positives noted in the history of the presenting illness?? Mental Status Vitals & Measurements T:??97.7?F?? TMIN:??97.7?F?? TMAX:??98.6?F?? HR:??62??(Peripheral)?? RR:??18?? BP:??103/74?? SpO2:??96%?? Mental Status Exam Appearance: Hospital gown, well groomed Eye contact: Within normal limits Attitude: Cooperative Motor Activity: Mild tremors at rest and upon movement. Calm; absent of tics, psychomotor agitation, psychomotor slowing Mood: Denies anxiety and depressed mood during evaluation Affect: Congruent Speech:normal rate, normal prosody, tangential speech Perception: No reported AVH;??no internal preoccupation or responding to internal stimuli Orientation: Intact to person, place, and time Memory: Grossly intact Thought Process: Coherent, goal-directed Reliability: Fair historian Insight: Appropriate Judgment: Appropriate Impulse control: Appropriate Suicidality/Self-destructive Behavior: None currently, but recent SI precipitating this presentation. Homicidality/Violence: None Muscle strength/tone:??Unable to assess ambulation??as patient stated his arthritis??was making himunsteady ? [place] Suicide Score [place] Suicide Assessment Ca (07/01/24) Suicidal Intent No Plan Past Month-CSSRS: Yes (07/01/24) Suicidal Thoughts Method Past Mon-CSSRS: Yes (07/01/24) Suicidal Thoughts Past Month - CSSRS: Yes (07/01/24) Suicide Behavior Lifetime - CSSRS: Yes (07/01/24) Suicide Behavior Past 3 Months - CSSRS: Yes (07/01/24) Suicide Intent w/Plan Past Month - CSSRS: Yes (07/01/24) Wish to be Past Month - CSSRS: Yes (07/01/24) Assessment/Plan 63-year-old male with PMH of alcohol use disorder, bipolar II, hypothyroidism was brought to the EDdue to insomnia, anxiety and suicidal ideation for 4 days. He is currently being treated for concern of Wernicke's encephalopathy receiving high dose??thiamine and hypothyroidism on home levothyroxine. Upon evaluation in ED, he was found to have TSH 140 and T4 0.1. Neurological work up was performed and CT imaging revealed stenosis of the right cervical ICA origin. Neurology was consulted and recommended no further investigation.??Psych was consulted to evaluate reported suicidal ideations and auditory hallucinations. ?? Diagnoses: 1. Bipolar 2/Depression disorder 2. Alcohol use disorder?? 3. Tobacco use disorder 4. Rule out psychotic disorder w/ delusions due to??hypothyroidism in the setting of not taking home levothyroxine? Patient's recent symptoms likely precipitated in setting of not taking home medications as patient endorses improvement when placed on home regimen in controlled hospital environment. Patient has multiple barriers to acquiring meds such as: lack of transportation and no PCP. Possible that mental state impacted by hypothyroidism and not taking home levothyroxine for unspecified amount of time. ?? Patient is currently low acute risk for suicide. He does admit to intermittent SI in the setting ofhis auditory hallucinations. He also does have chronic risk factors such as hx of depression and bipolar disorder and substance use hx). However, patient has no current SI, no plan, has no prior attempts, has help seeking behavior, and states that he only feels that way when his hallucinations feelout of control but does not believe he would actually do it. He feels comfortable and safe reaching out to nursing staff if he has ideations while in hospital. ? Recommendations: -??Does not require suicide precautions, 1:1 sitter, or inpatient psychiatric hospitalization -??Continue home??risperidone 0.25 mg -??Continue home??Depakote 250 mg -??Medical management??as per primary team - Included behavior health clinic resources in discharge instruction for patient as he indicated interest ?? Thank you for allowing us to participate in this patient???s care. We will continue to follow the patient as needed by the primary team. Please feel free to contact the Psychiatry consult service ([phone]) with any questions or concerns.? Case and plan discussed with attending psychiatrist,??Dr. Heller Recommendations??conveyed to ??[facility] via [employer] ?Maricruz Galvan PGY-1 ? Problem List/Past Medical History Ongoing Alcohol Anemia Bipolar disease, chronic PE - Pulmonary embolism Post traumatic stress disorder (PTSD) Tobacco user Medications Inpatient Ativan Tablet, 1 mg, By Mouth, Every 2 hours, PRN Ativan Tablet, 2 mg, By Mouth, Every 2 hours, PRN Depakote Tablet, 250 mg, By Mouth, 2 times a day Docusate Sodium Capsule, 100 mg= 1 capsule, By Mouth, 2 times a day, PRN Enoxaparin Inj, 40 mg= 0.4 mL, Subcutaneous Injection, Daily Folic Acid Tablet, 1 mg, By Mouth, Daily levothyroxine 0.1 mg oral tablet, 200 mcg, By Mouth, Daily LORazepam Tablet, 2 mg, By Mouth, Every hour, PRN LR Bolus 500 mL, 500 mL, IV Infusion, Once Melatonin Tablet, 3 mg, By Mouth, Daily at bedtime, PRN MiraLax Powder, 17 Gm= 1 pack/packet, By Mouth, Daily, PRN Multivit Therapeutic/Minerals Tablet, 1 tablet, By Mouth, Daily Multivit Therapeutic/Minerals Tablet, 1 tablet, By Mouth, Daily NaCL 0.9% Flush, 3 mL, IV Push, Every 8 hours NaCL 0.9% Flush, 3 mL, IV Push, Every 8 hours, PRN Pyridoxine Tablet, 50 mg, By Mouth, Daily Pyridoxine Tablet, 50 mg, By Mouth, Daily risperiDONE 0.25 mg oral tablet, 0.25 mg, By Mouth, Daily at bedtime Senna Tablet, 8.6 mg= 1 tablet, By Mouth, 2 times a day, PRN Thiamine IVPB Thiamine IVPB Thiamine Tablet, 100 mg, By Mouth, 2 times a day Home acamprosate 333 mg oral delayed release tablet, 666 mg= 2 tablet, By Mouth, 3 times a day divalproex sodium 250 mg oral enteric coated tablet, 250 mg, By Mouth, 2 times a day levothyroxine 0.1 mg oral tablet, 200 mcg, By Mouth, Daily potassium chloride 20 mEq oral tablet, extended release, 20 mEq= 1 tablet, By Mouth, Daily risperiDONE 0.25 mg oral tablet, 0.25 mg= 1 tablet, By Mouth, Daily at bedtime Walker, See Instructions Walker, See Instructions Allergies Percocet 7.5/325 morphine Social History Alcohol Frequency: Daily. Substance Abuse Use: Past. Type: Marijuana. Tobacco Use: 10 or more cigarettes (1/2 pack or more)/day in last 30 days. Family History Colon cancer 07-SEP-2016 21:52:24<$>: Mother. Hypothyroid 08-SEP-2016 04:31:44<$>: Mother. Lung cancer 07-SEP-2016 21:52:27<$>: Father. Mental illness: Brother. Immunizations Vaccine Date Status influenza virus vaccine, inactivated 08/27/2023 Given influenza virus vaccine, inactivated 09/04/2019 Recorded tetanus/diphtheria/pertussis, acel(Tdap) 09/04/2019 Recorded tetanus/diphtheria/pertussis, acel(Tdap) 10/28/2013 Recorded Lab Results Event Name?? Event Result?? Normal Range?? Date/Time?? WBC 5.6 k/mm3 4 k/mm3 - 11 k/mm3 07/01/24 13:46:00 RBC 4.35 m/mm3??Low 4.7 m/mm3 - 6.1 m/mm3 07/01/24 13:46:00 Hgb 14 Gm/dL 13.7 Gm/dL - 17.1 Gm/dL 07/01/24 13:46:00 Hct 39.9 %??Low 40.5 % - 50 % 07/01/24 13:46:00 MCV 91.7 femtoliters 80 femtoliters - 94 femtoliters 07/01/24 13:46:00 MCH 32.2 pg 27 pg - 34 pg 07/01/24 13:46:00 MCHC 35.1 g/dL 33 g/dL - 37 g/dL 07/01/24 13:46:00 Platelet Count 125 k/mm3??Low 150 k/mm3 - 460 k/mm3 07/01/24 13:46:00 RDW-SD 50.3 femtoliters??High ?? 07/01/24 13:46:00 MPV 10.4 femtoliters 9.4 femtoliters - 12.4 femtoliters 07/01/24 13:46:00 Nucleated RBC (Automated) 0 #/100 WBC'S ?? 07/01/24 13:46:00 Abs. NRBC 0 k/mm3 ?? 07/01/24 13:46:00 Abs. Neut 3.6 k/mm3 1.3 k/mm3 - 7 k/mm3 07/01/24 13:46:00 Abs. Lymph 1.5 k/mm3 0.8 k/mm3 - 3.1 k/mm3 07/01/24 13:46:00 Abs. [place] 0.3 k/mm3??Low 0.4 k/mm3 - 1.3 k/mm3 07/01/24 13:46:00 Abs. Eo 0.1 k/mm3 0 k/mm3 - 0.4 k/mm3 07/01/24 13:46:00 Abs. Baso 0 k/mm3 0 k/mm3 - 0.1 k/mm3 07/01/24 13:46:00 Neut % 64.7 % 44 % - 76 % 07/01/24 13:46:00 Lymph % 26.7 % 15 % - 43 % 07/01/24 13:46:00 [place] % 5.9 % 4.5 % - 10.5 % 07/01/24 13:46:00 Eos % 2 % 0 % - 6 % 07/01/24 13:46:00 Baso % 0.5 % 0 % - 2 % 07/01/24 13:46:00 Imm Gran 0.2 % ?? 07/01/24 13:46:00 Abs. Imm Gran 0 k/mm3 ?? 07/01/24 13:46:00 Hold Lavender Top SPECIMEN DISCARDED AFTER 24 HOURS. ?? 07/01/24 13:46:00 Sodium 133 mmol/L 133 mmol/L - 145 mmol/L 07/01/24 13:46:00 Potassium 3.6 mmol/L 3.6 mmol/L - 5.2 mmol/L 07/01/24 13:46:00 Chloride 95 mmol/L??Low 98 mmol/L - 107 mmol/L 07/01/24 13:46:00 Bicarbonate Level 23 mmol/L 22 mmol/L - 29 mmol/L 07/01/24 13:46:00 Anion Gap 15 4 ??- 17 07/01/24 13:46:00 Glucose Level 98 mg/dL 70 mg/dL - 99 mg/dL 07/01/24 13:46:00 Glucose, POC 102 mg/dL??High 70 mg/dL - 99 mg/dL 07/01/24 13:56:00 BUN 20 mg/dL 8 mg/dL - 23 mg/dL 07/01/24 13:46:00 Creatinine-Blood 1.39 mg/dL??High 0.7 mg/dL - 1.2 mg/dL 07/01/24 13:46:00 Estimated GFR Creatinine 57 ML/MIN/1.73 M2 ?? 07/01/24 13:46:00 Calcium 9.4 mg/dL 8.6 mg/dL - 10.5 mg/dL 07/01/24 13:46:00 Phosphorus 3.8 mg/dL 2.5 mg/dL - 4.5 mg/dL 07/01/24 13:46:00 Magnesium 1.9 mg/dL 1.6 mg/dL - 2.3 mg/dL 07/01/24 13:46:00 Protein, Total 7 Gm/dL 6.2 Gm/dL - 8.2 Gm/dL 07/01/24 13:46:00 Albumin 4.6 Gm/dL 3.4 Gm/dL - 4.8 Gm/dL 07/01/24 13:46:00 AG Ratio 1.9 ?? 07/01/24 13:46:00 Alkaline Phosphatase 70 units/L 40 units/L - 129 units/L 07/01/24 13:46:00 AST (SGOT) 38 units/L 0 units/L - 40 units/L 07/01/24 13:46:00 ALT (SGPT) 34 units/L 0 units/L - 41 units/L 07/01/24 13:46:00 Bilirubin, Total 0.7 mg/dL 0 mg/dL - 1.2 mg/dL 07/01/24 13:46:00 Vitamin B12 Level 946 pg/mL 232 pg/mL - 1245 pg/mL 07/01/24 13:46:00 TSH 140 uIU/mL??High 0.4 uIU/mL - 4.2 uIU/mL 07/01/24 13:46:00 Free T4 0.1 ng/dL??Low 0.7 ng/dL - 1.8 ng/dL 07/01/24 13:46:00 Ethanol, Serum or Plasma NONE DETECTED ?? 07/01/24 13:46:00 ? * Shaikh OMKAR, Ernny: PERFORM, MODIFY, MODIFY, MODIFY Event Display: Consultation Note Authored Date: Patient: ??BANDAR YEPEZ ? Age:??63 Years?Sex:??Male?:??1960?? Reason for Consultation Reason for consultation: severe hypothyroidism Consult requesting service: Hospital Medicine Consult requesting physician: Shelly Shane History of Present Illness This is 63-year-old male with PMH of hypothyroidism, alcohol use disorder, bipolar who was brought to the ED due to insomnia, anxiety and suicidal ideation for 4 days. ?? Reportedly, Pt??has not been taking any of his medications for about 2 to 3 weeks as he ran out of the of the meds and not able to get any refills.?? Patient??reported that 4 days ago he started hearing some music in his both ears.??Patient endorsed daily alcohol drinking but last drink was 5 days ago. ?? In the ED, patient was afebrile, HR 66, RR 18, BP 100 /65, saturation 96% on room air.?? WBC 5.6, Hb 14, PLT 125, electrolytes normal, BUN/creatinine 20/1.39, glucose 108, TSH significantly elevated 140 with a low free T4 0.10. ?? At the time of our??examination, patient denied any nausea vomiting fever or??chills. ??Patient denies??any diarrhea or constipation. ??He reported that he went to the bathroom today and had some blood??on the toilet paper. ??Patient reports that he is like he was on 200 to 250 mcg levothyroxinedaily but??he has been not been taking it because he does not have any primary physician??and has not filled any prescription. ??Patient also reports that he was diagnosed??with hypothyroidism in his20s. ?? Review of Systems A 14 point comprehensive ROS was performed and positive findings are mentioned in the HPI.?? Physical Exam Vitals & Measurements T:??97.7?F?? TMIN:??97.7?F?? TMAX:??98.6?F?? HR:??62??(Peripheral)?? RR:??18?? BP:??103/74?? SpO2:??96%?? Gen: NAD, AOX3 HEENT: EOMI Neck: Supple, no thyromegaly Chest: Nonlabored breathing Ext: no edema Skin: no rash, dry skin Neuro: No focal neuro deficits, positive upper extremity reflexes Assessment/Plan Briefly this is 63 years old male with a longstanding history of??hypothyroidism??who presented with??emergency department??due to??delusions.?? Reportedly patient ran out of??medications??few weeks ago and was not taking??any levothyroxine. ??In the time of his presentation to the emergency department, patient was alert and oriented??with stable vital signs and??laboratory except patient's was found to be TSH level of 140 with??free T4 level of 0.10. ??Patient does not have any clinical evidence of myxedema coma. ?? #severe hypothyroidism, not in coma ?? Recommendations: 1. Please administer Levothyroxine 75 mcg IV X1 now 2.??Start Levothyroxine 175 mcg daily from AM (07/03). 3.??Send a prescription of levothyroxine 4. Outpatient followup with Endo ? Based on patient's weight, patient??will require??150 mcg levothyroxine but considering severe hypothyroidism with??concern for poor absorption, will discharge the patient on 175 mcg??levothyroxine daily and adjust the dose??outpatient. ?? Above recommendations were communicated to covering hospitalist with Dr. Shelly Shane. Thank you for consulting endocrine team.?Endocrine team will sign off. ??Please??feel free to call us forany questions or concerns. ?? Case d/w Dr.??Amber ?? Renny Buckley MD Endocrinology Fellow PGY-5 ?? Total Time Spent Activities performed in this time include chart review, obtaining / reviewing history, performing amedically necessary evaluation, documentation and Communication with other health care providers including medical decision making of Moderate Complexity (45-59 minutes for NEW patient) Problem List/Past Medical History Ongoing Alcohol Anemia Bipolar disease, chronic PE - Pulmonary embolism Post traumatic stress disorder (PTSD) Tobacco user Medications Inpatient Ativan Tablet, 1 mg, By Mouth, Every 2 hours, PRN Ativan Tablet, 2 mg, By Mouth, Every 2 hours, PRN Depakote Tablet, 250 mg, By Mouth, 2 times a day Docusate Sodium Capsule, 100 mg= 1 capsule, By Mouth, 2 times a day, PRN Enoxaparin Inj, 40 mg= 0.4 mL, Subcutaneous Injection, Daily Folic Acid Tablet, 1 mg, By Mouth, Daily levothyroxine 0.175 mg oral tablet, 175 mcg, By Mouth, Daily Levothyroxine Inj, 75 mcg, IV Push Slowly, Once LORazepam Tablet, 2 mg, By Mouth, Every hour, PRN LR Bolus 500 mL, 500 mL, IV Infusion, Once Melatonin Tablet, 3 mg, By Mouth, Daily at bedtime, PRN MiraLax Powder, 17 Gm= 1 pack/packet, By Mouth, Daily, PRN Multivit Therapeutic/Minerals Tablet, 1 tablet, By Mouth, Daily Multivit Therapeutic/Minerals Tablet, 1 tablet, By Mouth, Daily NaCL 0.9% Flush, 3 mL, IV Push, Every 8 hours NaCL 0.9% Flush, 3 mL, IV Push, Every 8 hours, PRN Pyridoxine Tablet, 50 mg, By Mouth, Daily Pyridoxine Tablet, 50 mg, By Mouth, Daily risperiDONE 0.25 mg oral tablet, 0.25 mg, By Mouth, Daily at bedtime Senna Tablet, 8.6 mg= 1 tablet, By Mouth, 2 times a day, PRN Thiamine IVPB Thiamine IVPB Thiamine Tablet, 100 mg, By Mouth, 2 times a day Home acamprosate 333 mg oral delayed release tablet, 666 mg= 2 tablet, By Mouth, 3 times a day divalproex sodium 250 mg oral enteric coated tablet, 250 mg, By Mouth, 2 times a day levothyroxine 0.1 mg oral tablet, 200 mcg, By Mouth, Daily potassium chloride 20 mEq oral tablet, extended release, 20 mEq= 1 tablet, By Mouth, Daily risperiDONE 0.25 mg oral tablet, 0.25 mg= 1 tablet, By Mouth, Daily at bedtime Walker, See Instructions Walker, See Instructions Allergies Percocet 7.5/325 morphine Social History Alcohol Frequency: Daily. Substance Abuse Use: Past. Type: Marijuana. Tobacco Use: 10 or more cigarettes (1/2 pack or more)/day in last 30 days. Family History Colon cancer 07-SEP-2016 21:52:24<$>: Mother. Hypothyroid 08-SEP-2016 04:31:44<$>: Mother. Lung cancer 07-SEP-2016 21:52:27<$>: Father. Mental illness: Brother. Immunizations Vaccine Date Status influenza virus vaccine, inactivated 08/27/2023 Given influenza virus vaccine, inactivated 09/04/2019 Recorded tetanus/diphtheria/pertussis, acel(Tdap) 09/04/2019 Recorded tetanus/diphtheria/pertussis, acel(Tdap) 10/28/2013 Recorded * Amber ESPITIA, Fariha A: PERFORM Event Display: Consultation Note Authored Date: [id number] Attending Attestation:??I have seen and evaluated this patient. ??I have discussed the case and itsmanagement with the fellow and agree with the findings and plan as documented in the fellow???s note. * Yong Quinonez NP M: PERFORM Event Display: Consultation Note Authored Date: [id number] Patient: ??BANDAR YEPEZ ? Age:??63 Years?Sex:??Male?:??1960?? Chief Complaint/Reason for Consult from home stating that he has had insomnia and high anxiety, SI fo r 4 days. He is convinced that people can read his mind. HX arthritis and PE History of Present Illness 63 yo M presents with 2-3 months of impaired gait, blurred vision and reported to ED provider SI for several days as well as delusions. In ED he was noted to have nystagmus and CTH was nonacute. CTA with R ICA 70% stenosis reported. He has a history of etoh use disorder??(1/2 gallon liquor/day), hypothyroid, DJD, bipolar and PTSD. He reports acute illness 4-5 days ago with profuse watery diarrhea. has had last drink 5 days ago.?? He has been out of??his??regular medications for 2-3 weeks including levothyroxine, risperidone, depakote.?? Pt endorses blurred??vision, worse when??he gazes up??[place],??and impaired gait which he??reports is??due to hip and knee pain,??and dizziness when??standing which makes him unsteady. He has not had??an eye??exam for > 20 years. Endorses R foot numbness, chronic.??Denies headache, dizziness??at rest, room spinning, abdominal pain,??incontinent, or diarrhea??in last few??days.??On exam, pt is alert and oriented, calm and cooperative. He has no??nystagmus or visual field cuts, PERRL, DTR are??diminished in lower extremities, No??focal??weakness. No ataxia??with finger to??nose or??heel??to cota. L eye monocular blurred vision, no gaze pain, R eye with trace blur and??with??both eyes open has blurred vision when gazing up or down. No sensory??extinction.??Pulse is steady, 3+ and regular. No dyspnea. Able to??move from laying to sitting at bedside to standing independently. Did fall backwards on both attempts when standing with reported dizziness. Poor hygiene??noted. No tremor, diaphoresis.?At time of initial assessment there was?nolab data. Pt had received one dose of phenobarbitol.?? Recent TSH was 288 in February. VSS.?? Review of Systems ROS as noted in H&P. Physical Exam Vitals & Measurements T:??97.7?F?? HR:??95??(Peripheral)?? RR:??16?? BP:??105/83?? SpO2:??98%?? Gen: No acute distress, awake, alert, poor hygiene noted HEENT: normocephalic, atraumatic. No ptosis. Nares patent. Oropharynx without lesions. Psych: ??calm, cooperative, requires redirection to stay on topic.?? CV:rhythm regular, 3+radial pulses Pulm:??normal I:E, ??no dyspnea GI/: non-distended, soft, no guarding Derm: hyperkeratosis of BLE Neuro: Mental status: Oriented x 4, attentive.?? Speech is fluent, appropriate with no slurring or aphasia. Repeats 'No ifs, ands, or buts . Names well. Follows simple and complex commands.?? Cranial Nerves: PERRL4 5mm brisk , EOMI without nystagmus, VFF. Face appears symmetric with no drooping or weakness. Facial sensation intact. Hearing intact to finger snap??bilaterally.??Tongue and uvula midline. Palate symmetric movements. Shoulder shrug symmetric bilaterally. Motor: strength??5/5 BUE/BLE . No pronator drift. Normal bulk and tone. No abnormal movements.?? Coordination: No ataxia or dysmetria noted with finger to nose, heel to cota.?? Reflexes: DTRs 2+ bilateral biceps, brachioradialis, patellar, Achilles.??No ankle clonus present. Plantar reflexes: Flexor?? Sensation: Intact light touch sensation bilaterally. No extinction to double simultaneous stimulation. Decreased sensation to R foot ( chronic) +Romberg, falls backwards when stands, unable to ambulate.?? Assessment/Plan Assessment:?TSH 140. B12 946 ?? DDX: Polyneuropathy as evidenced by Impaired gait, dizziness and blurred vision exacerbated by acute on chronic??hypothyroidism, likely B vitamin deficiency??and chronic??etoh use disorder. Pt daryn have had recent electrolyte disturbance given report of profuse diarrhea.? Recommendations:? - Would treat his thyroid stat, defer management to primary team -??agree with thiamine and folic acid replacements, and CIWA scoring -??PMR consult for gait disturbance given hx DJD and dizzy when standing. -??No need for MRI at this point. -??Would resume home risperidone and depakote. -??Admit to medicine. -??Will need case management/ SW??for home resources/addiction. -??We will sign off. No??need??for outpt neuro??follow up.?? Thank you for the consult.? Case discussed with Dr. Woods Recommendations given to Dr. Barksdale ?? Discharge Planning:? Problem List/Past Medical History Ongoing Alcohol Anemia Bipolar disease, chronic PE - Pulmonary embolism Post traumatic stress disorder (PTSD) Tobacco user Procedure/Surgical History No qualifying data available. Home Medications Acamprosate: 666 mg = 2 tablet, By Mouth, 3 times a day Divalproex Sodium: 250 mg, By Mouth, 2 times a day Durable Medical Equipment: See Instructions, Use when ambulating for unsteady gait Durable Medical Equipment: See Instructions, Use when ambulating for unsteady gait Levothyroxine: 200 mcg, By Mouth, Daily, Dose will be adjusted according to repeat lab. Lab to be done in 4 weeks. Potassium Chloride: 20 mEq = 1 tablet, By Mouth, Daily Risperidone: 0.25 mg = 1 tablet, By Mouth, Daily at bedtime Allergies Percocet 7.5/325 morphine Social History Alcohol Frequency: Daily. Substance Abuse Use: Past. Type: Marijuana. Tobacco Use: 10 or more cigarettes (1/2 pack or more)/day in last 30 days. Family History Mother (): Colon cancer ?14-OCT-2016 21:52:24<$>; Hypothyroid ? 15-OCT-2016 04:31:44<$> Father (): Lung cancer ? 07-SEP-2016 21:52:27<$> Brother (): Mental illness Radiology (07/01/2024 13:[address] Head/Brain W/O Contrast) No acute intracranial pathology. ? [1] (07/01/2024 13:[address] Angio Head) ?? 1. ??No large vessel occlusion in the head or neck. 2. ??Severe stenosis of the right cervical ICA origin (70% by NASCET criteria). [2] [1]??CT Head/Brain W/O Contrast; Loraine Leigh MD 07/01/2024 13:31 EDT [2]??CT Angio Head; Suzanne Swenson MD 07/01/2024 13:31 EDT * Joey ESPITIA, Shawn Ramirez: PERFORM Event Display: Consultation Note Authored Date: I personally saw and examined the patient and agree with the findings and plan as noted below. Admission evaluation note * Aneta ESPITIA, Shruthi Lopez: PERFORM, MODIFY, MODIFY, MODIFY Event Display: Admission Note Authored Date: Patient: ??BANDAR YEPEZ ? Age:??63 Years?Sex:??Male?:??1960?? Chief Complaint/Reason for Consultation from home stating that he has had insomnia and high anxiety, SI fo r 4 days. He is convinced that people can read his mind. HX arthritis and PE History of Present Illness 63-year-old male with PMH of alcohol use disorder, bipolar was brought to the ED due to insomnia, anxiety and suicidal ideation for 4 days. ?? Patient's medical chart reviewed, seen and examined at bedside.?? Patient states that he is coming from home.?? Has not been taking any of his medications for about 2 to 3 weeks as he ran out of the of the meds and seems he is having problems with gait and not able to get any refills.?? Patient states that 4 days ago he started hearing some music in his both ears which is audible outside and he got worried about it which lasted for a few hours and then resolved.?? And again yesterday he startedhaving similar music in his head and he feels that he is broadcasting to his neighbor and was worried and so called 911.?? Endorses having unsteady gait and vision issues going on for few weeks.?? Patient states that he used to be compliant with his meds but when he ran out he did not know how to get them.?? He denies having any chest pain, shortness of breath, palpitations, nausea, vomiting, fever, chills, cough, sore throat, runny nose, abdominal pain.?? Patient endorses daily alcohol drinking but last drink was 5 days ago and is not feeling well due to prolonged diarrhea which resolved.?? E ndorses having a bowel movement in the ED with streaks of blood to his toilet paper. ?? Initially in the ED patient was afebrile, HR 66, RR 18, BP 100 /65, saturation 96% on room air.?? WBC 5.6, Hb 14, PLT 125, electrolytes normal, BUN/creatinine 20/1.39, glucose 108, TSH significantly elevated 140 with a low free T40.10, mag 1.9, Phos 3.8, AST/ALT normal, B12 normal, ethanol negative, CT head no acute findings chest x-ray no acute findings.?? CT angio of the head and neck no large vessel occlusions in the head and neck, severe stenosis of the right cervical ICA origin.?? Neurology was consulted, no further investigation from neurology standpoint and signed off.?? Patient given a nystagmus on exam and ataxia concern for Warnicke's encephalopathy and started on high-dose thia mine.?? Patient will be admitted to observation medicine service for further management Review of Systems All systems reviewed and are negative except as mentioned in HPI Objective ? Vital Signs?? Temperature: 98.6 DegF (07/02/24 04:14:00) Temperature Route: Oral (07/02/24 04:14:00) Pulse Rate: 66 bpm (07/02/24 04:14:00) Respiratory Rate: 18 br/min (07/02/24 04:14:00) Systolic Blood Pressure: 100 mm Hg (07/02/24 04:14:00) Diastolic Blood Pressure: 65 mm Hg (07/02/24 04:14:00) Blood pressure sites: Arm, right (07/02/24 04:14:00) Mean Arterial Pressure: 77 mm Hg (07/02/24 04:14:00) Pulse Pressure: 35 mm Hg (07/02/24 04:14:00) Oxygen Saturation: 96 % (07/02/24 04:14:00) Mode of Delivery (Oxygen): Room air (07/02/24 04:14:00) Early Warning Score: 5 (07/02/24 04:14:38) ? Pain Scores 1 - 10 Pain Scale Score: 5 (00:16) ?? Intake/Output? 07/01 11:21 07/02 07:00 07/01 07:00 06/30 07:00 06/29 07:00 ?? 07/02 07:52 07/02 07:52 07/02 06:59 07/01 06:59 06/30 06:59 Intake ?204 ?0 ?204 ?0 ?0 Output ?0 ?0 ?0 ?0 ?0 Net Total ?204 ?0 ?204 ?0 ?0 ? Precautions Constant Steam Fitter Helper Seizure Precautions Suicide Precautions ? Physical Exam Gen- not in acute distress,comfortabily lying on bed, speaking in full sentences.?? Tangential thoughts HEENT- Normocephalic, Atraumatic Neck-supple, no JVD Heart-S1S2(+),??regular, no murmurs. lungs- Clear, b/l air entry, no wheezing. Abdomen-soft, nontender,nondistended,??bowel sounds present, No guarding. Extremities-pulses palpable. No pedal edema. No calf tenderness. Neurological- AAO??3. No gross focal neurological deficits noted. ? (07/01/2024 12:47 EDT Chest 2 Views Frontal and Lat) Impression: ?? There is no acute cardiopulmonary disease. ?? (07/01/2024 13:[address] Head/Brain W/O Contrast) MPRESSION: ?? No acute intracranial pathology. ?? (07/01/2024 13:[address] Angio Head) IMPRESSION: ? 1. ??No large vessel occlusion in the head or neck. 2. ??Severe stenosis of the right cervical ICA origin (70% by NASCET criteria). Assessment/Plan 63-year-old male with PMH of alcohol use disorder, bipolar was brought to the ED due to insomnia, anxiety and suicidal ideation for 4 days. Initially in the ED patient was afebrile, HR 66, RR 18, BP 100 /65, saturation 96% on room air.?? WBC 5.6, Hb 14, PLT 125, electrolytes normal, BUN/creatinine 20/1.39, glucose 108, TSH significantly elevated 140 with a low free T40.10, mag 1.9, Phos 3.8, AST/ALT normal, B12 normal, ethanol negative, CT head no acute findings chest x-ray no acute findings.?? CT angio of the head and neck no large vessel occlusions in the head and neck, severe stenosis of the right cervical ICA origin.?? Neurology was consulted, no further investigation from neurology standpoint and signed off.?? Patient given a nystagmus on exam and ataxia concern for Warnicke's encephalopathy and started on high-dose thiamine.?? Patient will be admitted to observation medicine service for further management ? 1. ??Alcohol use disorder ??(F10.90) 2. ??Wernicke encephalopathy ??(E51.2) 3. ??Ataxia ??(R27.0) 4. ??Hallucinations ??(R44.3) 5. ??Suicidal ideation ??(R45.851) 6. ??Bipolar disease, chronic ??(F31.9) Vitals as per unit standards Telemetry monitoring Fall precautions Neurochecks every 4 hours Seizure precautions On CIWA protocol, lorazepam as needed as per CIWA score Folic acid/multivitamin/pyridoxine Thiamine??IV??for [facility] PT evaluation Constant return agent Psychiatric consult order placed Will resume??Depakote to 50 mg twice daily Risperidone??0.25 mg daily at bedtime ?? 7. ??Hypothyroidism ??(E03.9)??significantly deranged thyroid hormones??due to not taking medications for about??2 to 3 weeks. ??Will resume his levothyroxine 200 mcg daily. ??Endocrine consult for dose adjustment ? VTE Prophylaxis:??Subcu Lovenox ?VTE Prophylaxis Assessment:??VTE Prophylaxis Ordered ?? Discharge Planning:? Code Status:??Full ?Order Code Status:??Code Status Ordered Diet???cardiac diet ?? Patient seen and examined on??07/02/2024 ?? Histories Allergies Allergies ?(Active and Proposed Allergies Only) Percocet 7.5/325? (Severity: Unknown severity, Onset: Unknown) morphine? (Severity: Unknown severity, Onset: Unknown) ? Past Medical History/Problem List Active Problems(6) Alcohol Anemia Bipolar disease, chronic PE - Pulmonary embolism Post traumatic stress disorder (PTSD) Tobacco user ? Past Surgical History No surgery history documented. ? Social History Alcohol Details:??Frequency: Daily. Substance Abuse Details:??Use: Past. ??Type: Marijuana. Tobacco Details:??Use: 10 or more cigarettes (1/2 pack or more)/day in last 30 days. ? Family History Mother??(): Colon cancer ?14-OCT-2016 21:52:24<$>; Hypothyroid ? 15-OCT-2016 04:31:44<$> Father??(): Lung cancer ? 07-SEP-2016 21:52:27<$> Brother??(): Mental illness ? Medications Home Medications Acamprosate (acamprosate 333 mg oral delayed release tablet)?2?tab(s)?666?Milligram?By Mouth?3 times a day?for 30?Days Divalproex Sodium (divalproex sodium 250 mg oral enteric coated tablet)?250?Milligram?By Mouth?2 times a day?for 60?Days Durable Medical Equipment (Walker)?See Instructions?Use when ambulating for unsteady gait Durable Medical Equipment (Walker)?See Instructions?Use when ambulating for unsteady gait Levothyroxine (levothyroxine 0.1 mg oral tablet)?200?Microgram?By Mouth?Daily?for 60?Days?Dose will be adjusted according to repeat lab. Lab to be done in 4 weeks. Potassium Chloride (potassium chloride 20 mEq oral tablet, extended release)?1?tab(s)?20?Milliequivalent?By Mouth?Daily?for 7?Days Risperidone (risperiDONE 0.25 mg oral tablet)?0.25?Milligram?1?tablet?By Mouth?Daily at bedtime?for 4?Days ? Inpatient Medications Medications (22) Active SCHEDULED: (13) Divalproex 250 mg Tablet (Depakote Tablet) ??250 mg, By Mouth, 2 times a day Enoxaparin 40 mg Inj (Enoxaparin Inj) ??40 mg 0.4 mL, Subcutaneous Injection, Daily Folic Acid 1 mg Tablet (Folic Acid Tablet) ??1 mg, By Mouth, Daily Levothyroxine 100 mcg Tablet (levothyroxine 0.1 mg oral tablet) ??200 mcg, By Mouth, Daily Multivitamin Therapeutic / Minerals Tablet (Multivit Therapeutic/Minerals Tablet) ??1 tablet, By Mouth, Daily Multivitamin Therapeutic / Minerals Tablet (Multivit Therapeutic/Minerals Tablet) ??1 tablet, By Mouth, Daily NaCl 0.9% Flush 3ml (NaCL 0.9% Flush) ??3 mL, IV Push, Every 8 hours Pyridoxine 50 mg Tablet (Pyridoxine Tablet) ??50 mg, By Mouth, Daily Pyridoxine 50 mg Tablet (Pyridoxine Tablet) ??50 mg, By Mouth, Daily Risperidone 0.25 mg Tablet (risperiDONE 0.25 mg oral tablet) ??0.25 mg, By Mouth, Daily at bedtime Thiamine 100 mg IVPB (Thiamine IVPB) ??400 mg 4 mL, IVPB, Every 8 hours Thiamine 100 mg IVPB (Thiamine IVPB) ??400 mg 4 mL, IVPB, Daily Thiamine 100 mg Tablet (Thiamine Tablet) ??100 mg, By Mouth, 2 times a day CONTINUOUS: (1) Lactated Ringers (500 mL) Cont IV 500 mL (LR Bolus 500 mL) ??500 mL, IV Infusion PRN: (8) Docusate Sodium 100 mg Capsule (Docusate Sodium Capsule) ??100 mg 1 capsule, By Mouth, 2 times a day Lorazepam 1 mg Tablet (Ativan Tablet) ??1 mg, By Mouth, Every 2 hours Lorazepam 2 mg Tablet (Ativan Tablet) ??2 mg, By Mouth, Every 2 hours Lorazepam 2 mg Tablet (LORazepam Tablet) ??2 mg, By Mouth, Every hour Melatonin 3 mg Tablet (Melatonin Tablet) ??3 mg, By Mouth, Daily at bedtime NaCl 0.9% Flush 3ml (NaCL 0.9% Flush) ??3 mL, IV Push, Every 8 hours Polyethylene Glycol 17 Gm Powder (MiraLax Powder) ??17 Gm 1 pack/packet, By Mouth, Daily Senna Tablet ??8.6 mg 1 tablet, By Mouth, 2 times a day ? Results Recent Labs BLOOD COUNT & DIFF WBC 5.6 k/mm3 ()?? 07/01/2024 13:46 RBC 4.35 m/mm3 (Low)?? 07/01/2024 13:46 Hgb 14.0 Gm/dL ()?? 07/01/2024 13:46 Hct 39.9 % (Low)?? 07/01/2024 13:46 MCV 91.7 femtoliters ()?? 07/01/2024 13:46 MCH 32.2 pg ()?? 07/01/2024 13:46 MCHC 35.1 g/dL ()?? 07/01/2024 13:46 Platelet Count 125 k/mm3 (Low)?? 07/01/2024 13:46 RDW-SD 50.3 femtoliters (High)?? 07/01/2024 13:46 MPV 10.4 femtoliters ()?? 07/01/2024 13:46 Nucleated RBC (Automated) 0.0 #/100 WBC'S ()?? 07/01/2024 13:46 Abs. NRBC 0.0 k/mm3 ()?? 07/01/2024 13:46 Abs. Neut 3.6 k/mm3 ()?? 07/01/2024 13:46 Abs. Lymph 1.5 k/mm3 ()?? 07/01/2024 13:46 Abs. [place] 0.3 k/mm3 (Low)?? 07/01/2024 13:46 Abs. Eo 0.1 k/mm3 ()?? 07/01/2024 13:46 Abs. Baso 0.0 k/mm3 ()?? 07/01/2024 13:46 Neut % 64.7 % ()?? 07/01/2024 13:46 Lymph % 26.7 % ()?? 07/01/2024 13:46 [place] % 5.9 % ()?? 07/01/2024 13:46 Eos % 2.0 % ()?? 07/01/2024 13:46 Baso % 0.5 % ()?? 07/01/2024 13:46 Imm Gran 0.2 % ()?? 07/01/2024 13:46 Abs. Imm Gran 0.0 k/mm3 ()?? 07/01/2024 13:46 ?? CHEM GENERAL Sodium 133 mmol/L ()?? 07/01/2024 13:46 Potassium 3.6 mmol/L ()?? 07/01/2024 13:46 Chloride 95 mmol/L (Low)?? 07/01/2024 13:46 Bicarbonate Level 23 mmol/L ()?? 07/01/2024 13:46 Anion Gap 15 ()?? 07/01/2024 13:46 Glucose Level 98 mg/dL ()?? 07/01/2024 13:46 Glucose, POC 102 mg/dL (High)?? 07/01/2024 13:56 BUN 20 mg/dL ()?? 07/01/2024 13:46 Creatinine-Blood 1.39 mg/dL (High)?? 07/01/2024 13:46 Estimated GFR Creatinine 57 ML/MIN/1.73 M2 ()?? 07/01/2024 13:46 Calcium 9.4 mg/dL ()?? 07/01/2024 13:46 Phosphorus 3.8 mg/dL ()?? 07/01/2024 13:46 Magnesium 1.9 mg/dL ()?? 07/01/2024 13:46 Protein, Total 7.0 Gm/dL ()?? 07/01/2024 13:46 Albumin 4.6 Gm/dL ()?? 07/01/2024 13:46 AG Ratio 1.9 ()?? 07/01/2024 13:46 Alkaline Phosphatase 70 units/L ()?? 07/01/2024 13:46 AST (SGOT) 38 units/L ()?? 07/01/2024 13:46 ALT (SGPT) 34 units/L ()?? 07/01/2024 13:46 Bilirubin, Total 0.7 mg/dL ()?? 07/01/2024 13:46 Vitamin B12 Level 946 pg/mL ()?? 07/01/2024 13:46 ?? ENDOCRINE/TUMOR MARKER TSH 140.00 uIU/mL (High)?? 07/01/2024 13:46 Free T4 0.10 ng/dL (Low)?? 07/01/2024 13:46 ?? TOXICOLOGY/TDM Ethanol, Serum or Plasma NONE DETECTED mg/dL ()?? 07/01/2024 13:46 ? Urinalysis?? No qualifying data available. ? [1]??CT Angio Head; Suzanne Swenson MD 07/01/2024 13:31 EDT EKG study * Event Display: ECG 12-Lead Authored Date: Please click on pdf link to open report * Event Display: ECG 12-Lead Authored Date: Ventricular Rate: 90 BPM Atrial Rate: 90 BPM P-R Interval: 166 ms QRS Duration: 96 ms Q-T Interval: 380 ms QTC Calculation(Bazett): 464 ms P Barnard: 30 degrees R Barnard: -62 degrees T Barnard: 27 degrees Normal sinus rhythm Left axis deviation Inferior infarct , age undetermined Cannot rule out Anterior infarct , age undetermined Abnormal ECG When compared with ECG of 24-AUG-2023 15:50, No significant change was found Confirmed by EDDI MORALES MD ([id number]) on 07/01/2024 5:55:03 PM [place]: [facility] [address] Progress note * Nava Henley RN: PERFORM, SIGN, VERIFY Event Display: [facility] Authored Date: Patient: BANDAR YEPEZ Age: 63 years Sex: Male : 1960 Associated Diagnoses: None Author: Nava Henley RN Findings Narrative/Incidental Received patient alert ant and oriented x 4,breathing on room air ,nil distress noted, safety maintained, medicated as prescribed, patient encourage to verbalize fears and concerns .. Discharge Information Rehabilitation Discharge : Rehab Discharge Index 07/03/2024 9:03 EDT Walker: distance >50 Full chart review completed Yes Hospital course CTA head/neck: Severe stenosis of the right cervical ICA origin Other findings Received in supine. Pt completed all mobility tasks safely and indep using the RW. One VC for RW proximity and upright posture while ambulating. No LOB, SOB, or fatigue. Pt returned toroom and at EOB. Pt expressed fear of returning to drinking upon * Nava Henley RN: PERFORM, SIGN, VERIFY Event Display: Progress Note Hospital Authored Date: Patient: BANDAR YEPEZ Age: 63 years Sex: Male : 1960 Associated Diagnoses: None Author: Nava Henley RN Findings Narrative/Incidental Received patient alert ant and oriented x 4,breathing on room air ,nil distress noted, safety maintained, medicated as prescribed, patient encourage to verbalize fears and concerns .. Discharge Information Rehabilitation Discharge : Rehab Discharge Index 07/03/2024 9:03 EDT Walker: distance >50 Full chart review completed Yes Hospital course CTA head/neck: Severe stenosis of the right cervical ICA origin Other findings Received in supine. Pt completed all mobility tasks safely and indep using the RW. One VC for RW proximity and upright posture while ambulating. No LOB, SOB, or fatigue. Pt returned toroom and at EOB. Pt expressed fear of returning to drinking upon * Zofia Thorne RN: MODIFY, SIGN, VERIFY, PERFORM Event Display: Progress Note Hospital Authored Date: [id number] Patient: BANDAR YEPEZ Age: 63 years Sex: Male : 1960 Associated Diagnoses: None Author: Zofia Thorne RN Pt axox3, cooperative. no SI ideation overnight, pt in good spirits, just concern about how he willget his medications and PCP care after DC. medications given per JAN. ambulates with walker with minimal assistance. no new overnight event, patient wanted to rest, since he has not slept for 4 days.call light within reach, safety round met. plan of care on going Findings Nursing Data Vital Signs : VITAL SIGNS SECTION 07/03/2024 3:34 EDT Early Warning Score 6.00 07/03/2024 3:34 EDT Temperature 97.7 DegF Temperature Route Oral Pulse Rate 67 bpm Respiratory Rate 18 br/min Systolic Blood Pressure 106 mm Hg Diastolic Blood Pressure 75 mm Hg Blood pressure sites Arm, right Mean Arterial Pressure 85 mm Hg Pulse Pressure 31 mm Hg Oxygen Saturation 97 % Mode of Delivery (Oxygen) Room air 07/03/2024 1:40 EDT Early Warning Score 4.00 07/03/2024 1:08 EDT Early Warning Score 4.00 07/02/2024 22:39 EDT Early Warning Score 4.00 07/02/2024 22:38 EDT Temperature 98.4 DegF Temperature Route Oral Pulse Rate 62 bpm Respiratory Rate 18 br/min Systolic Blood Pressure 106 mm Hg Diastolic Blood Pressure 56 mm Hg Blood pressure sites Arm, right Mean Arterial Pressure 73 mm Hg Pulse Pressure 50 mm Hg Oxygen Saturation 98 % Mode of Delivery (Oxygen) Room air 07/02/2024 18:53 EDT Early Warning Score 4.00 07/02/2024 18:53 EDT Temperature 98.3 DegF Temperature Route Oral Pulse Rate 72 bpm Respiratory Rate 18 br/min Systolic Blood Pressure 107 mm Hg Diastolic Blood Pressure 62 mm Hg Blood pressure sites Arm, right Mean Arterial Pressure 77 mm Hg Pulse Pressure 45 mm Hg Oxygen Saturation 97 % Mode of Delivery (Oxygen) Room air . Note * Nava Henley RN: PERFORM Event Display: Discharge/Transfer Note Hospital Authored Date: [id number] Nursing Discharge Note Entered On: 07/03/2024 16:25 EDT Performed On: 07/03/2024 16:25 EDT by Nava Henley RN Nursing Discharge Note 2 Discharge Time : 07/03/2024 15:45 EDT Discharge Level of Care at Discharge : Home/[facility] Patient Left Unit Via : Wheelchair Patient Accompanied Off Unit with : Responsible adult DC Instructions Provided & Signed by Pt : Yes Patient Understands D/C Instructions : Yes Patient Instructions Discharge Signed : Yes Did Pt have Specialty Bed or Wound Vac : No Nava Henley RN - 07/03/2024 16:25 EDT * Acosta MD, Shelly: PERFORM, MODIFY Event Display: Discharge/Transfer Note Hospital Authored Date: [id number] Patient: ??BANDAR YEPEZ ? Age:??63 Years?Sex:??Male?:??1960?? Patient Information Discharge Location: B Primary Care Physician: Not on Staff, PCP Admit Date/Time: 07/02/24 13:25 Discharge Disposition Discharge Disposition: Home: No Services Discharge Diagnosis Alcohol use disorder (F10.90) Wernicke encephalopathy (E51.2) Ataxia (R27.0) Hallucinations (R44.3) Suicidal ideation (R45.851) Bipolar disease, chronic (F31.9) Hypothyroidism (E03.9) PE - Pulmonary embolism (I26.99) _ Discharge Medications Divalproex Sodium (divalproex sodium 250 mg oral enteric coated tablet)?250?Milligram?By Mouth?2 times a day?for 90?Days Durable Medical Equipment (Walker)?See Instructions?Use when ambulating for unsteady gait Durable Medical Equipment (Walker)?See Instructions?Use when ambulating for unsteady gait Folic Acid (folic acid 1 mg oral tablet)?1?Milligram?By Mouth?Daily?for 30?Days Levothyroxine (levothyroxine 175 mcg (0.175 mg) oral tablet)?175?Microgram?By Mouth?Daily?for 90?Days Multivitamin With Minerals (Therapeutic Multiple Vitamins with Minerals oral tablet, chewable)?1?tab(s)?By Mouth?Daily?for 30?Days Risperidone (risperiDONE 0.25 mg oral tablet)?0.25?Milligram?1?tablet?By Mouth?Daily at bedtime?for 90?Days Thiamine (thiamine 100 mg oral tablet)?100?Milligram?By Mouth?2 times a day?for 60?Days ? Durable Medical Equipment Discharge recommendations: Home with services (07/03/24) Ambulatory devices needed: Cane, Walker (09/18/23) ? Medications Started all above Allergies Allergies ?(Active and Proposed Allergies Only) Percocet 7.5/325? (Severity: Unknown severity, Onset: Unknown) morphine? (Severity: Unknown severity, Onset: Unknown) ? Objective Assessment and Plan 63-year-old male with PMH of alcohol use disorder, bipolar was brought to the ED due to insomnia, anxiety and suicidal ideation for 4 days.Has not been taking any of his medications for about 2 to 3 weeks as he ran out of the of the meds and seems he is having problems with gait and not able to getany refills. Initially in the ED patient was afebrile, HR 66, RR 18, BP 100 /65, saturation 96% on room air.?? WBC 5.6, Hb 14, PLT 125, electrolytes normal, BUN/creatinine 20/1.39, glucose 108, TSH significantly elevated 140 with a low free T40.10, mag 1.9, Phos 3.8, AST/ALT normal, B12 normal, ethanol negative, CT head no acute findings chest x-ray no acute findings.?? CT angio of the head and neck no large vessel occlusions in the head and neck, severe stenosis of the right cervical ICA origin.?? Neurology was consulted, no further investigation from neurology standpoint and signed off.?? On ED examination it was reported patient has the bidirectional nystagmus??but on neurology evaluation no nystagmus was found. ??Given history of??alcohol use disorder,??gait disturbance??patient was started on high-dose thiamine for possible??Warnicke's encephalopathy.?? He all his home medication was resumed. ??Mentation is back to baseline.?? No active suicidal thought, has been evaluated by psychiatry and does not need suicide precaution.?? He is TSH was elevated,??likely from noncompliance with levothyrox ine, has been started on levothyroxine and neurology will arrange for outpatient follow-up.?? His mentation is back to baseline, has been evaluated by physical therapy, he is ambulating okay.?? Patient will be discharged home today??discharge plan was discussed with patient. ?Alcohol use disorder ??(F10.90) . ???Wernicke encephalopathy ??(E51.2) ??Hallucinations ??(R44.3) Suicidal ideation ??(R45.851) ?Bipolar disease, chronic ??(F31.9) ?? Patient presented with??auditory hallucination,??he mention because of the hallucination he was very embarrassed and he had the thoughts of harming himself Seen by neurology - Polyneuropathy as evidenced by Impaired gait, dizziness and blurred vision exacerbated by acute on chronic??hypothyroidism, likely B vitamin deficiency??and chronic??etoh use disorder. Pt eldon adams have had recent electrolyte disturbance given report of profuse diarrhea.?? No focal neurological deficit, presentation not consistent with Warnicke's encephalopathy??his mentation is back to baseline, resumed home Depakote and risperidone,??has been evaluated by psychiatry,psychiatry recommends to continue current regimen. Does not need any suicidal precaution. Patient has history of alcohol use, no signs of withdrawal currently,??not interested in any??pharmacological agent for alcohol??dependence at this time.?? He received 2 days of IV thiamine Thiamine level is pending at this time Will discharge him home today. ??Will continue Depakote to 50 mg??2 times a day,??risperidone Will continue thiamine 100 mg twice daily multivitamin??pyridoxine and folic acid Thiamine level pending at the time of discharge Patient does not have a primary care physician at this time, case management will assist him??with that Discharge plan was??discussed with patient Physical therapy recommend discharge home??does not need any services at home Discussed with patient about VNA services at home which she declined ? 7. ??Hypothyroidism ??(E03.9)??significantly deranged thyroid hormones??due to not taking medications for about??2 to 3 weeks.? Has been evaluated by endocrinology, status post 75 mcg of IV levothyroxine x 1, started on levothyroxine 175 mg from today??endocrinology will arrange for outpatient follow-up ? CTA neck showed -?No large vessel occlusion in the head or neck. ??Severe stenosis of the right cervical ICA origin (70% by NASCET criteria). ??Vascular surgery referral as outpatient ? . Physical Exam GENERAL: In no apparent distress HEENT: Head normocephalic, PERRL,Moist mucous membrane. Neck supple CARDIOVASCULAR: Normal rate and rhythm, no murmurs, no rubs, no gallops RESPIRATORY: Lungs clear to auscultation, no wheezes , no crackles ABDOMEN/GI: Nondistended, soft, nontender, normal bowel sounds EXTREMITIES: No pitting edema HOME CARE ASSISTANT: Alert and oriented x 3.Non focal neuro exam. ? Consultants Endocrinology ??Psychiatry ??Neurology Pending Results Thiamine Level ordered on 07/01/2024 Urinalysis w/hold for Urine Culture ordered on 07/01/2024 Vitamin B6 Level ordered on 07/01/2024 Patient Education Titles WebMD Ignite Patient Education - Alcohol and Your Health?? Web[employer]ite Patient Education - Alcohol and Substance Abuse Disorder Resources?? Follow-Up Appointments Added Follow Up ?Time Frame ?Comments Not on Staff, PCP?1 to 2 weeks Patient Instructions You came in the hospital with a complaint of music from your ear,??thoughts of harming yourself andunsteady gait.?? You have been evaluated by psychiatry, endocrinology.?Your symptoms has improved so you will be discharged home today. ??Please continue taking all the medication as prescribed. Post Discharge Care Discharge ?07/03/24 12:38:00 EDT Discharge Prescriptions ?ePrescribed, 07/03/24 12:38:00 EDT Home Health Face to Face ^HomeHealthFTF Results Discharge Labs BLOOD COUNT & DIFF WBC 6.8 k/mm3 ()?? 07/03/2024 00:16 RBC 3.68 m/mm3 (Low)?? 07/03/2024 00:16 Hgb 11.7 Gm/dL (Low)?? 07/03/2024 00:16 Hct 34.8 % (Low)?? 07/03/2024 00:16 MCV 94.6 femtoliters (High)?? 07/03/2024 00:16 MCH 31.8 pg ()?? 07/03/2024 00:16 MCHC 33.6 g/dL ()?? 07/03/2024 00:16 Platelet Count 102 k/mm3 (Low)?? 07/03/2024 00:16 RDW-SD 52.2 femtoliters (High)?? 07/03/2024 00:16 MPV 11.3 femtoliters ()?? 07/03/2024 00:16 Nucleated RBC (Automated) 0.0 #/100 WBC'S ()?? 07/03/2024 00:16 Abs. NRBC 0.0 k/mm3 ()?? 07/03/2024 00:16 Abs. Neut 3.6 k/mm3 ()?? 07/01/2024 13:46 Abs. Lymph 1.5 k/mm3 ()?? 07/01/2024 13:46 Abs. [place] 0.3 k/mm3 (Low)?? 07/01/2024 13:46 Abs. Eo 0.1 k/mm3 ()?? 07/01/2024 13:46 Abs. Baso 0.0 k/mm3 ()?? 07/01/2024 13:46 Neut % 64.7 % ()?? 07/01/2024 13:46 Lymph % 26.7 % ()?? 07/01/2024 13:46 [place] % 5.9 % ()?? 07/01/2024 13:46 Eos % 2.0 % ()?? 07/01/2024 13:46 Baso % 0.5 % ()?? 07/01/2024 13:46 Imm Gran 0.2 % ()?? 07/01/2024 13:46 Abs. Imm Gran 0.0 k/mm3 ()?? 07/01/2024 13:46 ?? CHEM GENERAL Sodium 132 mmol/L (Low)?? 07/03/2024 00:16 Potassium 3.8 mmol/L ()?? 07/03/2024 00:16 Chloride 96 mmol/L (Low)?? 07/03/2024 00:16 Bicarbonate Level 23 mmol/L ()?? 07/03/2024 00:16 Anion Gap 13 ()?? 07/03/2024 00:16 Glucose Level 94 mg/dL ()?? 07/03/2024 00:16 Glucose, POC 102 mg/dL (High)?? 07/01/2024 13:56 BUN 21 mg/dL ()?? 07/03/2024 00:16 Creatinine-Blood 1.27 mg/dL (High)?? 07/03/2024 00:16 Estimated GFR Creatinine 63 ML/MIN/1.73 M2 ()?? 07/03/2024 00:16 Calcium 9.1 mg/dL ()?? 07/03/2024 00:16 Phosphorus 3.8 mg/dL ()?? 07/01/2024 13:46 Magnesium 1.9 mg/dL ()?? 07/01/2024 13:46 Protein, Total 7.0 Gm/dL ()?? 07/01/2024 13:46 Albumin 4.6 Gm/dL ()?? 07/01/2024 13:46 AG Ratio 1.9 ()?? 07/01/2024 13:46 Alkaline Phosphatase 70 units/L ()?? 07/01/2024 13:46 AST (SGOT) 38 units/L ()?? 07/01/2024 13:46 ALT (SGPT) 34 units/L ()?? 07/01/2024 13:46 Bilirubin, Total 0.7 mg/dL ()?? 07/01/2024 13:46 Vitamin B12 Level 946 pg/mL ()?? 07/01/2024 13:46 ? ENDOCRINE/TUMOR MARKER TSH 140.00 uIU/mL (High)?? 07/01/2024 13:46 Free T4 0.10 ng/dL (Low)?? 07/01/2024 13:46 ?? HEME OTHER Hold Lavender Top SPECIMEN DISCARDED AFTER 24 HOURS. ()?? 07/01/2024 13:46 ? TOXICOLOGY/TDM Ethanol, Serum or Plasma NONE DETECTED mg/dL ()?? 07/01/2024 13:46 ? 35_ minutes spent on discharge * Nava Henley RN: PERFORM Event Display: Patient Education/Instruction Authored Date: [id number] Inpatient Adult Discharge Instructions. [address] [address] Name: BANDAR YEPEZ : 1960?? Visit: 07/02/2024 13:25?? Current Date: 07/03/2024 12:39 ?? Account: [id number]?? Inpatient Adult Discharge Instructions We would like to thank you for allowing us to assist you with your healthcare needs. The following includes patient education materials and information regarding your injury/illness. Our entire staffstrives to provide an excellent experience for our patients and their families. PLEASE ENSURE YOU FOLLOW-UP PER THE INSTRUCTIONS BELOW! ?? YOUR OPINION IS IMPORTANT TO US! Please complete the survey you may receive by mail or email. Your feedback will be used to make improvements to the healthcare experiences of our patients and their families. Surveys are administered by [employer] ?? If further treatment with your primary care physician or another doctor is recommended, it is important for you to keep the appointment. Call your primary care physician or return to the Emergency Department immediately if your condition worsens, fails to improve, or new symptoms develop. If you need to find a doctor, you can call [facility] [employer] for a referral at [phone] or toll free at [phone] ([phone]) or log in to [email or web address].. ?? [facility], in keeping with [facility] guidance, no longer requires face masks for staff, patientsor visitors in most situations. Similiar to time spent indoors at other locations, there is the chance that you were exposed to repiratory viruses during your time with us (such as flu or COVID-19). If you develop symptoms concerning for a viral respiratory infection, please seek testing (and treatment if indicated) from your medical provider or home test kit. ?? You can view and manage your care through the patient portal or by using a health care sourav of your choosing. [employer] is a website that allows you to securely view your medical information including your hospital discharge summary, office visit summaries, medications and follow-up visits. You can also request appointments, renew medications, and request access to your medical information using a health care sourav of your choosing, or just ask a question. You can enroll at [email or web address] or register during your next office visit. You have been discharged from [facility], Patient Care Unit: D3B??. If you have any questions regarding these instructions, including results of studies pending, afteryou leave, please call us and we will be happy to assist you 17/06. [facility] Your Care Team Attending Physician Shelly Shane MD?? Consulting Providers Shelly Shane MD?? Discharging Providers Shelly Shane MD Reason for Your Visit from home stating that he has had insomnia and high anxiety, SI fo r 4 days. He is convinced that people can read his mind. HX arthritis and PE?? Your Diagnosis Alcohol use disorder Bipolar disease, chronic Hypothyroidism PE - Pulmonary embolism Tests Performed Below is a partial list of the tests performed during your hospitalization. You may have had other tests and procedures not included in this list. Please discuss all test results with your provider. Alcohol Level Basic Metabolic Panel CBC CBC w/ Differential Comprehensive Metabolic Panel FREE T4 GLUCOSE POC HOLD LAVENDER TUBE Magnesium Level Phosphorus Level TSH with T4 Reflex (Adults Only) Vitamin B12 Level CT Angio Head CT Angio Neck CT Head/Brain W/O Contrast CXR Basic Metabolic Panel?? CBC?? CBC w/ Differential?? CT Angio Head?? CT Angio Neck?? CT Head/Brain W/O Contrast?? Comprehensive Metabolic Panel?? Ethanol Level (Alcohol Level)?? Free T4?? Glucose POC?? Hold Lavender Top Tube (HOLD LAVENDER TUBE)?? Magnesium Level?? Phosphorus Level?? TSH with T4 Reflex (Adults Only)?? Thiamine Level?? Urinalysis w/hold for Urine Culture?? Vitamin B12 Level?? Vitamin B6 Level (VITAMIN B6)?? Chest 2 Views Frontal and Lat (CXR)?? Primary Care Provider Not on Staff, PCP?? Advance Directive Health Care Proxy on File No Patient refuses to discuss Discharge Vitals Temperature: 97.9 DegF Pulse Rate: 75 bpm Respiratory Rate: 18 br/min Systolic Blood Pressure: 116 mm Hg Diastolic Blood Pressure: 79 mm Hg Oxygen Saturation: 98 % Studies Pending All studies ordered during this hospital stay have been completed unless listed below. Please discuss all pending results with your provider listed above in these instructions. ?? Thiamine Level?? Urinalysis w/hold for Urine Culture?? Vitamin B6 Level (VITAMIN B6)?? What to do next Instructions From Your Doctor You came in the hospital with a complaint of music from your ear,??thoughts of harming yourself andunsteady gait.?? You have been evaluated by psychiatry, endocrinology.?Your symptoms has improved so you will be discharged home today. ??Please continue taking all the medication as prescribed. ?? Orders? 07/03/24 12:38:00 EDT?? Prescriptions??, ??07/03/24 12:38:00 EDT?? You Need to Schedule the Following Appointments Follow Up with??Not on Staff, PCP When:??Within 1 to 2 weeks Discharge Medications BANDAR YEPEZ :1960 Visit Date:07/02/2024 Medications: Please continue your medications until treatment is completed or stopped by your provider. Medications not listed below should be discontinued. Discuss any questions related to medications with your provider. What How Much When Instructions Next Dose New Folic Acid (folic acid 1 mg oral tablet) 1 Milligram Oral Daily Duration: 30 Days Pickup at [place] [address] 07/04/24 New Multivitamin With Minerals (Therapeutic Multiple Vitamins with Minerals oral tablet, chewable) 1 tab(s) Oral Daily Duration: 30 Days Pickup at [place] [address] 07/04/24 New Thiamine (thiamine 100 mg oral tablet) 100 Milligram Oral Twice a day Duration: 60 Days Pickup at [place] [address] 07/04/24 6pm Changed Divalproex Sodium (divalproex sodium 250 mg oral enteric coated tablet) 250 Milligram Oral Twice a day Duration: 90 Days Pickup at [place] [address] 07/04/24 6pm Changed Levothyroxine (levothyroxine 175 mcg (0.175 mg) oral tablet) 175 Microgram Oral Daily Duration: 90 Days Pickup at [place] [address] 07/04/24 Changed Risperidone (risperiDONE 0.25 mg oral tablet) 1 tab(s) Oral Daily at Bedtime Duration: 90 Days Pickup at [place] [address] 07/03/24 Unchanged Durable Medical Equipment (Walker) See instructions Use when ambulating for unsteady gait ?? Unchanged Durable Medical Equipment (Walker) See instructions Use when ambulating for unsteady gait ?? Pharmacy Information [facility] 3: [address] [place] [address] [phone] ?? What How Much When Comments Stop Taking Acamprosate (acamprosate 333 mg oral delayed release tablet) 2 tab(s) Oral 3 times a day Duration: 30 Days Stop Taking Potassium Chloride (potassium chloride 20 mEq oral tablet, extended release) 1 tab(s) Oral Daily Duration: 7 Days Prescription Given During Visit Divalproex Sodium (divalproex sodium 250 mg oral enteric coated tablet) - 250 mg, By Mouth, 2 timesa day, # 180 tablet, 0 Refills, [facility] [address], [address] [place] [phone]?? Folic Acid (folic acid 1 mg oral tablet) - 1 mg, By Mouth, Daily, # 30 tablet, 0 Refills, [facility] [address], [address] [place] [phone]?? Levothyroxine (levothyroxine 175 mcg (0.175 mg) oral tablet) - 175 mcg, By Mouth, Daily, # 90 tablet, 0 Refills, [facility] [address], [address] [place] [phone]?? Multivitamin With Minerals (Therapeutic Multiple Vitamins with Minerals oral tablet, chewable) - 1 tablet, By Mouth, Daily, # 30 tablet, 0 Refills, [facility] [address], [address] [place] [phone]?? Risperidone (risperiDONE 0.25 mg oral tablet) - 1 tablet = 0.25 mg, By Mouth, Daily at bedtime, # 90 tablet, 0 Refills, [facility] [address], [address] [place], [place] [id number] [phone]?? Thiamine (thiamine 100 mg oral tablet) - 100 mg, By Mouth, 2 times a day, # 120 tablet, 0 Refills, [facility], [address] [place] [address] [phone]?? Laboratory Results Below is a partial list of the most recent Laboratory test results done prior to this discharge. You may have had other tests and procedures not included in this list. Please discuss all test resultswith your provider. Alcohol Level (07/01/2024) ???Ethanol, Serum or Plasma - NONE DETECTED Basic Metabolic Panel (07/03/2024) ???Sodium - 132 mmol/L???Potassium - 3.8 mmol/L???Chloride - 96 mmol/L???Bicarbonate Level - 23 mmol/L???Anion Gap - 13???Glucose Level - 94 mg/dL???BUN - 21 mg/dL???Creatinine-Blood - 1.27 mg/dL???Estimated GFR Creatinine - 63 ML/MIN/1.73 M2???Calcium - 9.1 mg/dL CBC (07/03/2024) ???WBC - 6.8 k/mm3???RBC - 3.68 m/mm3???Hgb - 11.7 Gm/dL???Hct - 34.8 %???MCV - 94.6 femtoliters???MCH - 31.8 pg???MCHC - 33.6 g/dL???Platelet Count - 102 k/mm3???RDW-SD - 52.2 femtoliters???MPV - 11.3 femtoliters???Nucleated RBC (Automated) - 0.0 #/100 WBC'S???Abs. NRBC - 0.0 k/mm3 CBC w/ Differential (07/01/2024) ???WBC - 5.6 k/mm3???RBC - 4.35 m/mm3???Hgb - 14.0 Gm/dL???Hct - 39.9 %???MCV - 91.7 femtoliters???MCH - 32.2 pg???MCHC - 35.1 g/dL???Platelet Count - 125 k/mm3???RDW-SD - 50.3 femtoliters???MPV - 10.4 femtoliters???Nucleated RBC (Automated) - 0.0 #/100 WBC'S???Abs. NRBC - 0.0 k/mm3???Abs. Neut - 3.6 k/mm3???Abs. Lymph - 1.5 k/mm3???Abs. [place] - 0.3 k/mm3???Abs. Eo - 0.1 k/mm3???Abs. Baso - 0.0 k/mm3???Neut % - 64.7 %???Lymph % - 26.7 %???[place] % - 5.9 %???Eos % - 2.0 %???Baso % - 0.5 %???Imm Gran - 0.2 %???Abs. Imm Gran - 0.0 k/mm3 Comprehensive Metabolic Panel (07/01/2024) ???Sodium - 133 mmol/L???Potassium - 3.6 mmol/L???Chloride - 95 mmol/L???Bicarbonate Level - 23 mmol/L???Anion Gap - 15???Glucose Level - 98 mg/dL???BUN - 20 mg/dL???Creatinine-Blood - 1.39 mg/dL???Estimated GFR Creatinine - 57 ML/MIN/1.73 M2???Calcium - 9.4 mg/dL???Protein, Total - 7.0 Gm/dL???Albumin - 4.6 Gm/dL???AG Ratio - 1.9???Alkaline Phosphatase - 70 units/L???AST (SGOT) - 38 units/L???ALT (SGPT) - 34 units/L???Bilirubin, Total - 0.7 mg/dL FREE T4 (07/01/2024) ???Free T4 - 0.10 ng/dL GLUCOSE POC (07/01/2024) ???Glucose, POC - 102 mg/dL HOLD LAVENDER TUBE (07/01/2024) ???Hold Lavender Top - SPECIMEN DISCARDED AFTER 24 HOURS. Magnesium Level (07/01/2024) ???Magnesium - 1.9 mg/dL Phosphorus Level (07/01/2024) ???Phosphorus - 3.8 mg/dL TSH with T4 Reflex (Adults Only) (07/01/2024) ???TSH - 140.00 uIU/mL Vitamin B12 Level (07/01/2024) ???Vitamin B12 Level - 946 pg/mL You will be contacted within 72 hours with your results. Allergies (NKA means No Known Allergies) Percocet 7.5/325 morphine Problems Active Problems??(6) Alcohol?? Anemia?? Bipolar disease, chronic?? PE - Pulmonary embolism?? Post traumatic stress disorder (PTSD)?? Tobacco user?? Education Materials Below is the list of Educational Leaflet Providered with your Discharge Instructions. WebMD Ignite Patient Education - Alcohol and Your Health?? [employer] Patient Education - Alcohol and Substance Abuse Disorder Resources?? Valuables and Belongings I fully understand and agree that [facility] accepts no responsibility for all my personal property including clothing, toilet articles, radios, jewelry, dentures, hearing aids, rings, money, or any other property that is in my possession or is brought to me after admission. I understand certain valuables may be placed in a hospital safe for a short period of time. I understand that the hospital is not liable for loss or damage due to accident, fire, or other natural occurrence while said property is in the safe. I accept full responsibility for any personal property that I keep with me, and will not hold the hospital responsible in case of loss or disappearance. I acknowledge that i have been encouraged to send valuables and belongings home. ?? Review of Valuable and Belonging List: With patient, With witness Date for Pt to Sign Valuables/Belongings: 07/01/24 12:21:00 ?? Other Discharge Information ? Pulmonary Rehab Status?? Pulmonary Rehab Discharge Status?? Respiratory Rate: 18 br/min ? Common Emergency Awareness Tips IS IT A STROKE? Act FAST and Check for these signs: FACE Does the face look uneven? ARM Does one arm drift down? SPEECH Does their speech sound strange? TIME Call at any sign of stroke ?? Heart Attack Signs Chest discomfort: Most heart attacks involve discomfort in the center of the chest and lasts more than a few minutes, or goes away and comes back. It can feel like uncomfortable pressure, squeezing, fullness or pain. Discomfort in upper body: Symptoms can include pain or discomfort in one or both arms, back, neck, jaw or stomach. Shortness of breath: With or without discomfort. Other signs: Breaking out in a cold sweat, nausea, or lightheaded. Remember, MINUTES DO MATTER. If you experience any of these heart attack warning signs, call to get immediate medical attention! ?? Smoking can increase your chances of developing chronic health problems and can cause harmful effects to other family members in your house. If you smoke, you are strongly encouraged to quit. Please call [facility] [employer] Link at [phone] or [phone] ([phone]) or log in to [email or web address] for referrals to smoking cessation programs. ?? 927 Suicide & Crisis Lifeline is available 17/06 if you or someone you know needs to find a reason to keep living. By calling 224 you'll be connected to a skilled, trained counselor at a crisis center in your area. INPATIENT DISCHARGE INSTRUCTIONS SIGNATURE PAGE BANDAR YEPEZ Location:[facility] Registration Date and Time:07/02/2024 13:25 EDT Primary Care Physician: Not on Staff, PCP Attending Physician: Acosta ESPITIA, Shelly, I HANANESACHIN BANDAR, have received the above patient education materials/instructions and have verbalized understanding. If ambulance or transport services are being used I further acknowledge beinggiven a choice of service. ?? If you need to contact me, please call me at this number: . 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 702 ? * Shelly Shane MD: PERFORM Event Display: Patient Education Leaflets Authored Date: Alcohol and Substance Abuse Disorder Resources ?? 703 Alcohol & Substance Use Disorder Resources? Short-term Detox Programs ?? - you can call these facilities directly to see if a bed is available ??? however, you may be told to call back every 2 hours ??? if you are told this, PLEASE follow those instructions! Bed availability can change very quickly! ? [facility] ??? ([place] ??? provides transportation) ??? [facility] ??? [phone] ([place]) ??? [facility] (Veterans only) ??? [phone] ([place] ??? [facility] ??? [phone] ([place]) ??? [facility] ??? [facility]- ([place]) ??? [facility] ??? / [phone] ([place]) ??? [facility] -?? [phone] ([place]) ??? [facility] ??? / ([place]) ??? Bradley Dino / [facility] - [phone] ([place]) ??? [facility] - [phone] ([place]) ??? Juan [facility] - [phone] ([place]) ??? [facility] - [phone] ([place]) ??? [facility] [place] - [phone] ??([place]) ??? [facility] [place] - [phone] ([place]) ??? [facility] - [phone] ([place]) ???[facility] - [phone] ([place]) ??? [facility] - [phone] ([place]) ??? [facility] - [phone] - ([place]) ??? [facility] - [phone] ([place]) ??? [facility] - [phone] ([place]) ??? [facility] - [phone] ([place]) ??? [facility] - [phone] ([place]) ??? [facility] - [phone] ([place]) ??? [facility] - [phone] ([place]) ??? [facility] - [phone] ([place]) ??? [facility] - [phone] ([place]) ??? [place] ??? [phone] Intensive Outpatient / Day Treatment Programs ??? some programs offer mornings, some evenings, someboth. Call for more information. Can usually call directly for an intake appointment. Some insurances may require a referral from your doctor. ? [facility] ??? IOP ??? [phone] ([place]) ??? [facility] ??? IOP ??? [phone] ([place]) ??? [facility] ??? IOP ??? [phone] ([place]) ??? BH[facility] ??? [facility] ??? IOP ??? [phone] ([place]) ??? [facility] -IOP- [phone] or [phone] ?? Outpatient Clinics Specializing in Substance Use Disorder Treatment ??? call directly for information or an intake appointment ??? [facility] - [phone] ([place]) ??? [facility] - [phone] ([place]) ??? [facility] - [phone] ??? [facility] - [phone] ([place]) ??? Kevin - [phone] ([place]) ??? [facility] - [phone] ([place]), ([place]), ([place]) ??? [facility] ([place])- [phone] ([place]) ??? [facility] - [phone] ([place]) ??? [facility] - [phone] ([place]) ??? [facility] - [phone] ([place]) ??? [facility] - [phone] ([place]) ??? [facility] - [phone] ([place]) ??? [facility] - [phone] ([place]) ??? [facility] - [phone] ([place]) ??? [facility] - [phone] ([place]) ??? [facility] - [phone] ([place]) ??? [facility] - [phone] ([place]) ??? [facility] - [phone] ([place]) ? ? [facility] - [phone] ([place]) ??? [facility] - [phone] ([place]) ?? Medication Assisted Treatment Programs ??? Call directly for information or for intake ?? Methadone ??? [facility] ([place]) - [phone] ([place]) ??? [facility] - ??[phone] ([place]) ??? Health Care Resource Centers?? Multiple Locations ??? Call Main # ??for intake at any site ??? [phone] ??? [facility] Clinic ??? [phone] ??? [place] (methadone, suboxone & vivitrol) Suboxone, Vivitrol, Sublocade (Call for information) ??? [facility] ??? [phone] ([place]) ??? [facility] ??? [phone] ([place]) ??? [facility] ([place]) - [phone] ([place]) ??? [facility] ??? [phone] ([facility], Main #) ??? [facility] - [phone] ([facility] Main #) ??? [facility] ??? ([place] ) [phone] ?? CSS & Long-Term Residential Programs ? Typically require a referral from a detox or other interim residential program ??? call for information ??? [facility] ??? men ??? [phone] ([place]) ??? [facility] ??? women ??? [phone] ([place]) ??? [facility] ??? men - ([place]) ??? [facility] ??? men/women ??? 1- ([place]) ??? [facility] ??? men/women [phone] ([place]) ??? [facility] ??? women ??? Intake: [phone]; ([place]) ??? [facility] ??? Men - [phone] ([place]) ??? [facility] ??? women ??? [phone] ([place]) ??? G[facility]tor[facility] - [phone] ([place]) ??? Connections ??? Shell ([facility]) - (intake) ??? [facility] ??? woman w/ children ??? [phone] ??? ([place]) ??? [facility] ??? men/women [phone] ([place]) ??? [facility] ??? men ??? [phone] ([place]) ??? [facility] ??? women ??? [phone] ([place]) ??? [facility] ??? men/women - [phone] ([place]) ??? [facility] ??? men/women - [phone] ext. [phone] ([place]) ??? [facility] CSS - men/women - [phone] - ([place]) ??? Spectrum?? - men/women - Intake - ??? ([place]) ??? [facility] CSS - men/women - [phone] ([place]) ??? [address] ??? [facility] ([facility]) - (intake) ?? Hotlines ??? To find a meeting or for peer support ??? Alcoholics Anonymous ??? [phone] ??? Narcotics Anonymous ? Gamblers Anonymous ? Support for Families & Friends ? To find a meeting or for peer support ? ? Al-Anon ? [phone], ??? Wyatt-Anon ??? [phone] ??? Al-A-Teen ??? [phone] ??? Learn to [place] ??? [phone] www.pqvpo0svsk.org For Additional Resources Statewide call: ?? [place] Substance Abuse Information Hotline ? (17/06) To search online for MEL[facility] services and possible bed availability (local & statewide): https://www.[employer] ?? Click on ???substance use search?? and ??use the drop-down box to choose type of facility (ATS = detox) ? Patient Care team information Care Team Personnel Name: Av LO, Aarti Harrison Position: [facility] SN RN Member Role: Primary Care Nurse Name: Not on Staff, PCP Position: [facility] Physician (General Medicine) Member Role: PCP Name: Fadumo LO, Zofia Flynn Position: [facility] RN Member Role: Primary Care Nurse Care Team Related Persons Name: RUTHIE MIXON Address: home [address] [place] [address] Name: CHELSEA YEPEZ Address: home [address] [place] [address]
--- OUTSIDE RECORDS SUMMARY | 2024-08-02 15:45 | XMS_ITS | Continuity of Care Document ---
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 Start Date: 08/28/23 Stop Date: 09/27/23 Status: Ordered divalproex sodium 250 mg oral enteric coated tablet = 250 mg, By Mouth, 2 times a day, # 120 tablet, 0 Refills, Maintenance, 08/28/23 9:58:00 EDT, Tablet, [facility], Partial fill upon patient [...] 0 Refills, Maintenance, 08/28/23 9:58:00 EDT, Tablet, [facility], Partial fill upon patient request if the prescription... Start Date: 08/28/23 Stop Date: 10/27/23 Status: Ordered risperiDONE 0.25 mg oral tablet 0.25 mg, 1, tablet, By Mouth, Daily at bedtime, # 4 tablet, Refills 0, Tot. Refills 0, Maintenance,08/28/23 9:59:00 EDT, Route to Pharmacy Electronically, [facility], Partial fill uponpatient request if the prescription is for a schedu... Start Date: 08/28/23 Stop Date: 09/01/23 Status: Ordered Problem List Condition Confirmation Course Effective Dates Status Health St atus Informant Alcohol 1 Confirmed Active Anemia Confirmed Active Bipolar disease, chronic Confirmed Active PE - Pulmonary embolism Confirmed Active Post traumatic stress disorder (PTSD) Confirmed Active Tobacco user Confirmed Active 1abuse Vital Signs Most recent to oldest [Reference Range]: 1 2 3 Oxygen Saturation [94-100 %] 97 % (10/17/23 2:04 AM) 98 % (10/16/23 8:52 PM) 97 % (10/16/23 4:20 PM) Pulse Rate [55-90 bpm] 106 bpm *H* (10/17/23 2:04 AM) 105 bpm *H* (10/16/23 8:52 PM) 116 bpm *H* (10/16/23 4:20 PM) Blood Pressure [90-138/55-84 mm Hg] 129/83mm Hg (10/17/23 2:04 AM) 111/70mm Hg (10/16/23 8:52 PM) 126/79mm Hg (10/16/23 4:20 PM) Respiratory Rate [16-30 br/min] 20 br/min (10/17/23 2:04 AM) 20 br/min (10/16/23 8:52 PM) 22 br/min (10/16/23 4:20 PM) Temperature [96.8-100.4 DegF] 98.0 DegF (10/17/23 2:04 AM) 97.2 DegF (10/16/23 4:20 PM) Mode of Delivery (Oxygen) Room air (10/17/23 2:04 AM) Room air (10/16/23 8:52 PM) Room air (10/16/23 4:20 PM) Blood pressure sites Arm, left (10/17/23 2:04 AM) Arm, left (10/16/23 8:52 PM) Arm, left (10/16/23 4:20 PM) Temperature Route Oral (10/17/23 2:04 AM) Oral (10/16/23 4:20 PM) Social History Social History Type Response Smoking Status 10 or more cigarette s (1/2 pack or more)/day in last 30 days entered on: 05/12/19 Sex Note * Yasmeen Allen DO: PERFORM Event Display: Patient Education Leaflets Authored Date: [id number] Alcohol Intoxication ?? [id number] Alcohol Intoxication Alcohol intoxication is very serious. It occurs when you drink alcohol faster than your liver can break it down. Severe intoxication is a medical emergency. It's also called alcohol overdose or alcohol poisoning. It can lead to . Here are some hernandez facts: ??? It can take 10 minutes or more??to start??to??feel the effects of a drink. So it's easy to drink more than you planned. Binge drinking can lead to an alcohol overdose. Binge drinking is having: o5 or more drinks over a short time for men o 4 or more drinks over a short time for women ??? One drink may be more than 1 serving of alcohol. In some cases, a drink can be 2 to 4 servings. This depends on the type of drink. ??? It takes about 1 hour for your body to break down 1 serving of alcohol. If you have more than 1 drink, it can take a few hours or more. ??? People with alcohol abuse disorders are more likely to get alcohol poisoning. But it can happen to anyone who drinks too much alcohol. Even a first-time drinker is at risk. ??? Many things affect how drinks will affect you. These include: o If you've eaten o How fast you drink o Your weight o How much you normally drink (or not)o Medicines you are taking o If you have a chronic disease o If you are male or female o How old you are Symptoms of alcohol intoxication Mild intoxication ??? Feel more relaxed, less tense ??? Slightly slurred speech ??? Sleepiness ??? Poor motor skills Moderate intoxication ??? Changing behavior, aggression, depression ??? Poor judgment ??? Confusion ??? Trouble focusing ??? Poor balance and coordination ??? Worsening slurred speech Severe intoxication ??? Vomiting ??? Seizures ??? Fainting or passing out (unconscious) ??? Cold, clammy skin ??? Slow or irregular breathing ??? Low body temperature (hypothermia) ??? Coma ?? Health effects Alcohol causes health problems.??This can happen after only drinking a little. There is no set number of drinks or amount of alcohol that's too much.??How much you drink at one time affects your health. And so does drinking often. Alcohol affects your whole body in these ways: ??? Brain.??Alcohol can harm parts of the brain that affect your balance, memory, thinking, and feelings. It can cause memory loss, blackouts, depression, agitation, sleep cycle changes, and seizures. These changes may or may not go away. ??? Heart and vascular system.??Alcohol can damage heart muscle. This can cause the heart muscle to weaken and stretch (cardiomyopathy). This can lead to: o Trouble breathing o Irregular heartbeat o Atrial fibrillation o Leg swelling o Heart failure Alcohol also makes the blood vessels stiffen. This causes high blood pressure. All of these problems raise your risk for heart attacks or strokes. ??? Liver.??Alcohol causes fat to build up in the liver. This affects how the liver works. And it raises the risk for hepatitis. This condition leads to belly pain, appetite loss, yellow skin and eyes (jaundice), and bleeding problems. It also leads to harmful changes in the liver. These include??liver fibrosis and cirrhosis. This can affect your ability to fight off infections. These liver changes stop it from removing toxins in your blood. This can cause a brain disease called encephalopathy. ??? Pancreas.??Alcohol can cause inflammation of the pancreas (pancreatitis). It can lead to belly pain, fever, and diabetes. ??? Immune system.??Alcohol weakens your immune system. This makes it harder to fight off infections and colds. You'll also have a higherrisk of some infections. ??? Cancer risk.??Alcohol raises your risk of some types of cancer. They include cancer of the: o Mouth o Esophagus o Pharynx o Larynx o Liver o Breast ? Sexual function.??Alcohol abuse can also lead to sexual problems. There is no safe level of alcohol use for people who are or thinking of getting . Alcohol use in may cause lifelong harm to the baby. So alcohol should be avoided. It can also cause a group of defects called alcohol spectrum disorder. These defects can include physical problems. And also behavior and learning problems. ?? Home care for alcohol intoxication Follow these tips to care for yourself at home: ??? Don't drink any more alcohol. ??? Don't drive??until all effects of the alcohol have worn off. ??? Don't use machinery that can cause injuries. ??? Get lots of rest over the next few days. ??? Drink plenty of water and other drinks that don't have alcohol. ??? Try to eat regular meals. If you have been drinking a lot every day, you may have alcohol withdrawal. Symptoms often last 3 to 4 days. They may include: ??? Nervousness ??? Shakiness ??? Nausea ??? Sweating ??? Sleeplessness They may also include severe, life-threatening symptoms. These are known as delirium tremens (DTs).DTs typically begin between 48 and 96 hours after the last drink and last 1 to 5 days. They include: ??? Seizures ??? Confusion ??? Seeing or hearing things that are not there (hallucinations) Alcohol withdrawal can cause . Call your healthcare provider before you stop drinking. This isespecially important if you've had DTs during past alcohol withdrawals. They may be able to help you with medicine. They can also refer you to an inpatient detox program. Or stay with family or friends who know when to call for medical help and can support you. If you have severe symptoms, call your provider or call 911 for help (see below). ?? Follow-up care These groups can help you and your loved one: ??? Alcoholics Anonymous (A.A.). Gives support through a self-help fellowship. ?? Find A.A. meetings near you at www.aa.org. ??? [facility]. ?? Gives support to families at www.al-anon.org . Or call 689-882-8172. ??? SMART Recovery ( Self- Management and Recovery Training). A nationwide abstinence-oriented support group for people with addictive issues. This free program is focused on motivation to change, urge control, and living a balanced life. For more information and meetings near you, go to www.Jambo.org/ ??? Substance Abuse and Mental Health Services Administration (SAMHSA) Treatment Director Of Financial Aid. Free information on treatment resources in your area at https://findtreatment.gov/. Or call 092-549-9955. Call 911 Call 911 if any of these occur: ??? Trouble breathing or slow irregular breathing ??? Chest pain ??? Sudden weakness on 1 side of your body or sudden trouble speaking ??? Heavy bleeding or vomiting blood ??? Very sleepy or having trouble waking up ??? Fainting ??? Fast heart rate ??? Seizure ?? When to get medical advice Call your healthcare provider right away if any of these occur: ??? Severe shakiness? Fever of100.4??F (38??C) or higher, or as advised by your provider ??? Confusion or hallucinations ??? Painin your upper belly that gets worse ??? Repeated vomiting ?? Last Reviewed Date: 2022 ?? [id number] The [employer]. All rights reserved. This information is not intended as a substitute for professional medical care. Always follow your healthcare professional's instructions. ?? Patient Care team information Care Team Personnel Name: Aarti Ley RN Position: [facility] SN RN Member Role: Primary Care Nurse Name: Not on Staff, PCP Position: [facility] Physician (General Medicine) Member Role: PCP Name: *[facility], ED Attending Position: [facility] ED Attendings Patient Name: Milka Macias RN Position: [facility] ED RN W/OE and Tasks Member Role: Patient Care Provider Name: Burt Loo Position: [facility] ED TA [facility] Member Role: Patient Care Provider Name: Yasmeen Allen DO Position: [facility] ED Medicine MD Member Role: ED Attending Physician Address: Address: [address] [place] [address] [place] [address]- Care Team Related Persons Name: RUTHIE MIXON Address: home [address] [address] [place] [address] Name: CHELSEA YEPEZ Address: home [address] [place] [address]
--- OUTSIDE RECORDS SUMMARY | 2024-08-02 15:45 | XMS_ITS | Continuity of Care Document ---
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[employer] Name Role Phone Not on Staff, PCP Primary Care Physician Unavail able Encounter [facility] [place] Date(s): 07/30/24 - 07/31/[address] [address]- Encounter Diagnosis Alcohol ingestion(Final) - 07/30/24 Discharge Disposition: Transfer to [facility] Attending Physician: Mitzy Ellison MD Admitting Physician: Mitzy Ellison MD Referring Physician: Not on Staff, Referring [...] 0 Refills, Maintenance, 07/03/24 11:41:00 EDT, Tablet, [facility], Partial fill upon patient request if the prescription is for a schedule II opioid drug., 175, cm, 08/28/23 10:58:00 EDT,... Start Date: 07/03/24 Stop Date: 10/01/24 Status: Ordered folic acid 1 mg oral tablet 1 mg, By Mouth, Daily, # 30 tablet, Refills 0, Tot. Refills 0, Maintenance, 07/03/24 11:43:00 EDT, Route to Pharmacy Electronically, [facility], Partial fill upon patient request if theprescription is for a schedule II opioid drug., 175... Start Date: 07/03/24 Stop Date: 08/02/24 Status: Ordered levothyroxine 175 mcg (0.175 mg) oral tablet = 175 mcg, By Mouth, Daily, # 90 tablet, 0 Refills, Maintenance, 07/03/24 11:42:00 EDT, Tablet, [facility], Partial fill upon patient request if the prescription is for a schedule II opioid drug., 175, cm, 08/28/23 10:58:00 EDT, Height,... Start Date: 07/03/24 Stop Date: 10/01/24 Status: Ordered risperiDONE 0.25 mg oral tablet 0.25 mg, 1, tablet, By Mouth, Daily at bedtime, # 90 tablet, Refills 0, Tot. Refills 0, Maintenance, 07/03/24 11:42:00 EDT, Route to Pharmacy Electronically, [facility], Partial fill upon patient request if the prescription is for a sche... Start Date: 07/03/24 Stop Date: 10/01/24 Status: Ordered Therapeutic Multiple Vitamins with Minerals oral tablet, chewable 1 tablet, By Mouth, Daily, # 30 tablet, 0 Refills, Maintenance, 07/03/24 11:43:00 EDT, Chew Tablet,[facility], Partial fill upon patient [...] 07/03/24 11:44:00 EDT, Route to Pharmacy Electronically, [facility], Partial fill upon patient [...] 3 Oxygen Saturation [94-100 %] 97 % (07/31/24 9:03 AM) 96 % (07/30/24 9:00 PM) 95 % (07/30/24 4:58 PM) Pulse Rate [55-90 bpm] 114 bpm *H* (07/31/24 9:03 AM) 114 bpm *H* (07/31/24 9:00 AM) 78 bpm (07/30/24 10:58 PM) Blood Pressure [90-138/55-84 mm Hg] 145/87mm Hg *H* (07/31/24 9:03 AM) 145/87mm Hg *H* (07/31/24 9:00 AM) 134/78mm Hg (07/30/24 10:58 PM) Respiratory Rate [16-30 br/min] 17 br/min (07/31/24 9:03 AM) 17 br/min (07/31/24 9:00 AM) 18 br/min (07/30/24 10:58 PM) Temperature [96.8-100.4 DegF] 97.7 DegF (07/31/24 9:03 AM) 97.4 DegF (07/30/24 9:00 PM) 97.3 DegF (07/30/24 9:21 AM) Mode of Delivery (Oxygen) Room air (07/31/24 9:03 AM) Room air (07/30/24 4:58 PM) Room air (07/30/24 9:21 AM) Blood pressure sites Arm, right (07/30/24 4:58 PM) Arm, right (07/30/24 9:21 AM) Temperature Route Oral (07/31/24 9:03 AM) Oral (07/30/24 9:21 AM) Social History Social History Type Response Smoking Status 10 or more cigarette s (1/2 pack or more)/day in last 30 days entered on: 05/12/19 Sex Patient Care team information Care Team Personnel Name: Aarti Ley RN Position: [facility] SN RN Member Role: Primary Care Nurse Name: Not on Staff, PCP Position: [facility] Physician (General Medicine) Member Role: PCP Name: Fadumo LO, Zofia Flynn Position: [facility] RN Member Role: Primary Care Nurse Care Team Related Persons Name: RUTHIE MIXON Address: home [address] [address] Name: CHELSEA YEPEZ Address: [address] [place] [address]
--- OUTSIDE RECORDS SUMMARY | 2024-08-02 15:45 | XMS_ITS | Continuity of Care Document ---
Author Organization [facility] ter Address [address] [place] [id number]- Care Team Providers Care Brim Stretcher Name Role Phone Winsome ESPITIA, Jimi Primary Care Physician Encounter [facility] [place] Date(s): 08/24/23 - 08/28/[address] [id number]- Encounter Diagnosis Hypothyroidism(Final) - 08/24/23 Discharge Disposition: A-D/C Home Attending Physician: Leah Zheng MD Admitting Physician: Sima Hernandez MD Referring Physician: Not on Staff, Referring [...] 0 Refills, Maintenance, 08/28/23 10:01:00EDT, CR Tablet, [facility], Partial fill upon patient request if the prescription is for a schedule II opioid drug., 175, cm, 08/28/23 7:... Start Date: 08/28/23 Stop Date: 09/27/23 Status: Ordered divalproex sodium 250 mg oral enteric coated tablet = 250 mg, By Mouth, 2 times a day, # 120 tablet, 0 Refills, Maintenance, 08/28/23 9:58:00 EDT, Tablet, [facility], Partial fill upon patient [...] 0 Refills, Maintenance, 08/28/23 9:58:00 EDT, Tablet, [facility], Partial fill upon patient request if the prescription... Start Date: 08/28/23 Stop Date: 10/27/23 Status: Ordered melatonin 3 mg oral tablet = 3 mg, By Mouth, Daily at bedtime, PRN Insomnia, for 14 days, # 30 tablet, 0 Refills, Acute 09/11/23 10:00:00 EDT, 08/28/23 10:00:00 EDT, Tablet, [facility], Partial fill upon patient request if the prescription is for a schedule II opi... Start Date: 08/28/23 Stop Date: 09/11/23 Status: Ordered risperiDONE 0.25 mg oral tablet 0.25 mg, 1, tablet, By Mouth, Daily at bedtime, # 4 tablet, Refills 0, Tot. Refills 0, Maintenance,08/28/23 9:59:00 EDT, Route to Pharmacy Electronically, [facility], Partial fill uponpatient request [...] Exam Date Time Procedure Performing Provider Status 08/25/23 6:59 PM US Retroperitoneum Comp Roxy Saha ; Auth (Verified) Notes: (US Retroperitoneum Comp) Reason For Exam: Renal Failure RESULT: US Retroperitoneum Comp US Retroperitoneum Comp Reason: Renal Failure; Clinical Question(s): Acute Renal Failure COMPARISON: None. FINDINGS: Right kidney: 10.7 cm in length. No hydronephrosis. Normal parenchymal thickness and echotexture. No stones. No suspicious mass. Left kidney: 11.3 cm in length. No hydronephrosis. Normal parenchymal thickness and echotexture. Nostones. No suspicious mass. Urinary bladder: Normal morphology. No stone, mass, wall thickening or debris. Prostate: 3.9 x 3.9 x 4.7 cm, volume 36.9 cc. Additional findings: Partially imaged hepatic steatosis. IMPRESSION: No sonographic explanation for patient's symptoms identified. Enlarged prostate; clinically correlate. WSN: [id number] Ordering Physician: Rudy Thomas Dictated By: Nicholas Narayanan MD Dictated Date/Time: 08/25/23 8:08 pm Reviewed By: Nicholas Narayanan MD Signed By: Nicholas Narayanan MD Signed Date/Time: 08/25/23 8:08 pm Transcribed By: BELKYS Transcribed Date/Time: 08/25/23 8:06 pm * Exam Date Time Procedure Performing Provider Status 08/24/23 5:[address] Head/Brain W/O Contrast Paul Galvin; Auth (Verified) Notes: (CT Head/Brain W/O Contrast) Reason For Exam: Other: RESULT: CT Head/Brain W/O Contrast CT Head/Brain W/O Contrast INDICATION: Reason: Other:; Clinical Question(s): Infarction; Order Comment: TECHNIQUE: Noncontrast head CT using axial technique and reconstructed in axial and coronal planes.Iterative reconstruction techniques are used to optimize dose and image quality. CTDIvol Head: 48.30 mGy, DLP Head: 773 mGy*cm. COMPARISON: None. 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 BRAIN AND EXTRA-AXIAL SPACES: No parenchymal hemorrhage, midline shift, or mass effect. Bacon-white matter differentiation is wellpreserved. No acute infarct. Negative insular ribbon sign. Atherosclerotic vascular calcification of the carotid arteries but negative hyperdense vessel sign. Moderate prominence of the ventricles and sulci consistent with parenchymal volume loss. Mild low-density white matter changes. No subarachnoid hemorrhage. No subdural or epidural collection. CALVARIUM, SKULL BASE, AND SOFT TISSUES: No fractures or suspicious bony lesions. The paranasal sinuses and mastoid air cells are clear. Nonspecific soft tissue attenuation in the external auditory canals likely represents cerumen. Visualized orbits and globes are intact. The extracranial soft tissues are unremarkable. IMPRESSION: No acute intracranial pathology. WSN: [id number] Ordering Physician: Catrachita Lopez Dictated By: Teddy Price MD Dictated Date/Time: 08/24/23 6:21 pm Reviewed By: Teddy Price MD Signed By: Teddy Price MD Signed Date/Time: 08/24/23 6:21 pm Transcribed By: BELKYS Transcribed Date/Time: 08/24/23 6:17 pm * Exam Date Time Procedure Performing Provider Status 08/24/23 4:29 PM Chest 2 Views Frontal and Lat Flavio Singh; Auth (Verified) Notes: (Chest 2 Views Frontal and Lat) Reason For Exam: Cough RESULT: Chest 2 Views Frontal and Lat Chest 2 Views Frontal and Lat Reason: Cough; Clinical Question(s): Other: COMPARISON: None. FINDINGS: LINES AND TUBES: None. LUNGS AND PLEURA: Clear lungs. Normal pulmonary vascularity. No pleural effusion. No pneumothorax. HEART, MEDIASTINUM AND KEILA: Heart is normal in size. Aorta is calcified. BONES AND SOFT TISSUES: No acute abnormality. IMPRESSION: No acute abnormality. No radiographic explanation for patient's cough is identified. If symptoms persist and/or remain unexplained, follow-up radiography or CT may be indicated. WSN: [id number] Ordering Physician: Catrachita Lopez Dictated By: Nicholas Narayanan MD Dictated Date/Time: 08/24/23 4:32 pm Reviewed By: Nicholas Narayanan MD Signed By: Nicholas Narayanan MD Signed Date/Time: 08/24/23 4:32 pm Transcribed By: BELKYS Transcribed Date/Time: 08/24/23 4:31 pm Vital Signs Most recent to oldest [Reference Range]: 1 2 3 Height 175 cm (08/28/23 10:58 AM) 175 cm (08/28/23 7:33 AM) 175 cm (08/28/23 3:38 AM) Weight 92 kg (08/26/23 8:52 AM) Oxygen Saturation [94-100 %] 100 % (08/28/23 10:58 AM) 96 % (08/28/23 7:33 AM) 94 % (08/28/23 3:38 AM) Pulse Rate [55-90 bpm] 95 bpm *H* (08/28/23 10:58 AM) 69 bpm (08/28/23 7:33 AM) 67 bpm (08/28/23 3:38 AM) Body Mass Index [18.5-24.99 kg/m2] 30.04 kg/m2 *>HHI* (08/26/23 8:52 AM) Blood Pressure [90-138/55-84 mm Hg] 94/77mm Hg (08/28/23 10:58 AM) 106/77mm Hg (08/28/23 7:33 AM) 102/64mm Hg (08/28/23 3:38 AM) Respiratory Rate [16-30 br/min] 18 br/min (08/28/23 10:58 AM) 18 br/min (08/28/23 7:33 AM) 18 br/min (08/28/23 3:38 AM) Temperature [96.8-100.4 DegF] 98.2 DegF (08/28/23 10:58 AM) 98.1 DegF (08/28/23 7:33 AM) 98 DegF (08/28/23 3:38 AM) Mode of Delivery (Oxygen) Room air (08/28/23 10:58 AM) Room air (08/28/23 7:33 AM) Room air (08/28/23 3:38 AM) Blood pressure sites Arm, right (08/28/23 10:58 AM) Arm, right (08/28/23 7:33 AM) Arm, left (08/28/23 3:38 AM) Temperature Route Temporal (08/28/23 10:58 AM) Oral (08/28/23 7:33 AM) Oral (08/28/23 3:38 AM) Dry Weight 92 kg (08/26/23 8:52 AM) Social History Social History Type Response Smoking Status 10 or more cigarette s (1/2 pack or more)/day in last 30 days entered on: 05/12/19 Sex Admission evaluation note * Braydon ESPITIA, Leah Harrison: PERFORM, MODIFY Event Display: Admission Note Authored Date: [id number] Patient: ??AARONIVYBANDAR STEPHENSON ? Age:??63 Years?Sex:??Male?:??1960?? Chief Complaint/Reason for Consultation Believes his neighbors are able to hear his thoughts, has not been taking medications. TSH 268, T4 0.15. History of Present Illness 63-year-old male patient with a past medical history of??depression/anxiety/bipolar disorder, hypothyroidism??who presents today to the emergency department??for evaluation of ??someone is reading my thoughts . ??He reports that??his neighbors are??listening to his mind??and someone is??reading his thoughts. ??Reports that has been going on for the past??several weeks however that has been progressively getting worse. ??He used to be on depression/anxiety/bipolar disorder medications in the past??including trazodone, sertraline, Depakote??however has not??not been taking any meds??for the past 2 to 3 years.?? He also supposed to be on??200 mcg of levothyroxine for hypothyroidism, has not taken any levothyroxine for the past 2 years.?? He denies fever, chills,??unintentional weight gain, skin/hair changes,??cold intolerance, constipation,??excessive sleep,??fatigue,??or any other associated symptoms.?? Also??denying hearing voices??or any orders??in his mind.?? In the emergency department, was hemodynamically stable with a soft blood pressure, BP of 99/83, afebrile, maintaining saturation 95% on room air, pulse rate was 78.?? Chest x-ray without evidence of acute cardiopulmonary abnormalities.?? CT scan of the head without evidence of acute intracranial abnormalities.?? Initial b lood work was notable for mild transaminitis with AST of 45 and ALT of 64.?? Creatinine 1.7 (baseline creatinine of 0.9 in 2019).?? TSH was remarkably elevated at 268, free T4 was low at 0.15.?? Admission was requested for further management of??uncontrolled hypothyroidism. Review of Systems Constitutional:?No weight loss, fever, chills, weakness or fatigue. Cardiovascular:No chest pain,pressure or discomfort. No palpitations or pedal edema. Respiratory:No shortness of breath, cough or sputum production. Gastrointestinal:?No anorexia, nausea, vomiting or diarrhea. No abdominal pain or blood in stool. Genitourinary: No burning micturition. No urinary frequency or incontinence. Neurologic: No headache, dizziness, syncope, unilateral weakness, ataxia, numbness or tingling in the extremities. No change in bowel or bladder control. Musculoskeletal: No muscle pain, back pain, joint pain or stiffness. Hematologic: No bleeding or bruising. Lymphatics: No enlarged lymph nodes. Psychiatric: Increased anxiety someone is reading my mind Endocrine: No reports of sweating. No cold or heat intolerance. No polyuria or polydipsia. All other systems were reviewed and are negative. Objective ? Vital Signs?? Temperature: 97.7 DegF (08/24/23 20:40:00) Temperature Route: Oral (08/24/23 20:40:00) Pulse Rate: 82 bpm (08/24/23 20:40:00) Respiratory Rate: 19 br/min (08/24/23 20:40:00) Systolic Blood Pressure: 102 mm Hg (08/24/23 20:40:00) Diastolic Blood Pressure: 69 mm Hg (08/24/23 20:40:00) Blood pressure sites: Arm, left (08/24/23 20:40:00) Mean Arterial Pressure: 80 mm Hg (08/24/23 20:40:00) Pulse Pressure: 33 mm Hg (08/24/23 20:40:00) Oxygen Saturation: 94 % (08/24/23 20:40:00) Mode of Delivery (Oxygen): Room air (08/24/23 20:40:00) Early Warning Score: 0 (08/24/23 20:38:04) ? Intake/Output? No Data Available ? Physical Exam ?? Constitutional: Alert, in no acute distress. ?? Head: Normocephalic. ?? Eyes: Pupils are equal, round and reactive to light. Extraocular muscles intact. No pallor or scleral icterus ?? Ear, Nose and Throat: mucous membranes moist. Ears and nose - no obvious deformities. Trachea midline ?? Neck: Supple, Full range of motion.No JVD or bruits. ?? Respiratory:??Clear to auscultation. No wheezing or rhonchi.??No use of accessory muscles. No tactile fremitus.? Cardiovascular:??PMI not visible. S1 S2 regular. No murmurs, rubs or gallops. ?? Gastrointestinal:??Abdomen soft, non-tender, non-distended. Normal bowel sounds. No pulsatile mass.No hepatosplenomegaly. ?? Genitourinary:??No costovertebral angle tenderness. ?? Extremities: No lower extremity pitting edema. No cyanosis or clubbing. ?? Neurologic:??AAOx3, Cranial nerves II-XII grossly intact. Speech normal, no facial droop. No focal neurological deficits. Moves all extremities spontaneously. Sensation intact bilaterally.??Flexor plantar response ?? Skin:??No rash.? Musculoskeletal:??No gross deformities on inspection. Normal range of motion in hips, knees, ankles. Gait? Heme/Lymphatics:??Palpation of neck reveals no swelling or tenderness of neck nodes.? Psychiatric: Normal mood and affect. ?? Assessment/Plan Diagnoses Hypothyroidism ??(E03.9) ?? 63-year-old male patient with a past medical history of??depression/anxiety/bipolar disorder, hypothyroidism??who presents today to the emergency department??for evaluation of ??someone is reading my thoughts . ? Untreated hypothyroidism: Has a long history of??hypothyroidism. Supposed to be on high dose of levothyroxine??up to 200 mics. Has not taken levothyroxine for the past??3 years. Denies symptoms??suggestive of overt??hypothyroidism. HR is stable TSH was remarkably elevated at 268, free T4 was low at 0.15 Unclear??if has??abnormal thinking related to untreated hypothyroidism. Patient without underlying cardiac??history, will stat full dose of levothyroxine 200mics will obtain endocrinology consultation??for further guidance. ? Transaminitis: History of??45, ALT of 64. Patient has a history of alcohol use disorder??(last use was??couple months ago). Likely related to alcohol intake??and??fatty liver continue to monitor while inpatient. may need further work up if it's persistent as outpatient. ? Elevated creatinine: Creatinine was 1.7??today. With elevation baseline,??most recent creatinine was??0.9 in 2019. Will obtain kidney ultrasound. We will obtain UA. ? Depression/anxiety/bipolar disorder Supposed to be on sertraline, trazodone, and Depakote. However the patient has not picked up the medication for the past couple years. We will hold off initiation of any meds at this point.?? We will obtain psychiatric evaluation while inpatient. day team to contact psychiatry team for official consultation in the a.m. ?? Quality metrics: CODE STATUS: Full resuscitation. DVT prophylaxis: Lovenox. Histories Allergies Allergies ?(Active and Proposed Allergies Only) Percocet 7.5/325? (Severity: Unknown severity, Onset: Unknown) morphine? (Severity: Unknown severity, Onset: Unknown) ? Past Medical History/Problem List Active Problems??(6) Alcohol Anemia Bipolar disease, chronic PE - Pulmonary embolism Post traumatic stress disorder (PTSD) Tobacco user ? Past Surgical History No surgery history documented. ? Social History Tobacco Details:??Use: 10 or more cigarettes (1/2 pack or more)/day in last 30 days. ? Family History Mother (): Colon cancer ?14-OCT-2016 21:52:24<$>; Hypothyroid ? 15-OCT-2016 04:31:44<$> Father (): Lung cancer ? 14-OCT-2016 21:52:27<$> Brother (): Mental illness ? Medications Home Medications Divalproex Sodium (Depakote)?By Mouth?3 times a day Ibuprofen (ibuprofen 800 mg oral tablet)?800?Milligram?1?tablet?By Mouth Levothyroxine (levothyroxine 0.1 mg oral tablet)?1?tab(s)?100?Microgram?By Mouth?Daily lurasidone (Latuda 20 mg oral tablet)?1?tab(s)?20?Milligram?By Mouth?Daily Nicotine (nicotine 21 mg/24 hr transdermal film, extended release)?1?patch(es)?Topically?Daily?for 7?Days Sertraline (Zoloft 100 mg oral tablet)?1?tab(s)?100?Milligram?By Mouth?Daily ? Results Recent Labs BLOOD COUNT & DIFF WBC 7.8 k/mm3 ()?? 08/24/2023 15:56 RBC 4.12 m/mm3 (Low)?? 08/24/2023 15:56 Hgb 13.5 Gm/dL (Low)?? 08/24/2023 15:56 Hct 40.6 % ()?? 08/24/2023 15:56 MCV 98.5 femtoliters (High)?? 08/24/2023 15:56 MCH 32.8 pg ()?? 08/24/2023 15:56 MCHC 33.3 g/dL ()?? 08/24/2023 15:56 Platelet Count 222 k/mm3 ()?? 08/24/2023 15:56 RDW-SD 46.1 femtoliters ()?? 08/24/2023 15:56 MPV 10.0 femtoliters ()?? 08/24/2023 15:56 Nucleated RBC (Automated) 0.0 #/100 WBC'S ()?? 08/24/2023 15:56 Abs. NRBC 0.0 k/mm3 ()?? 08/24/2023 15:56 Abs. Neut 4.6 k/mm3 ()?? 08/24/2023 15:56 Abs. Lymph 2.4 k/mm3 ()?? 08/24/2023 15:56 Abs. Meade 0.5 k/mm3 ()?? 08/24/2023 15:56 Abs. Eo 0.3 k/mm3 ()?? 08/24/2023 15:56 Abs. Baso 0.1 k/mm3 ()?? 08/24/2023 15:56 Neut % 58.3 % ()?? 08/24/2023 15:56 Lymph % 30.3 % ()?? 08/24/2023 15:56 Meade % 5.8 % ()?? 08/24/2023 15:56 Eos % 3.9 % ()?? 08/24/2023 15:56 Baso % 0.9 % ()?? 08/24/2023 15:56 Imm Gran 0.8 % ()?? 08/24/2023 15:56 Abs. Imm Gran 0.1 k/mm3 ()?? 08/24/2023 15:56 ?? CARDIAC High Sensitivity Troponin (HSTnT) 23 ng/L (High)?? 08/24/2023 15:56 ?? CHEM GENERAL Sodium 141 mmol/L ()?? 08/24/2023 15:56 Potassium 4.1 mmol/L ()?? 08/24/2023 15:56 Chloride 101 mmol/L ()?? 08/24/2023 15:56 Bicarbonate Level 28 mmol/L ()?? 08/24/2023 15:56 Anion Gap 12 ()?? 08/24/2023 15:56 Glucose Level 102 mg/dL (High)?? 08/24/2023 15:56 BUN 19 mg/dL ()?? 08/24/2023 15:56 Creatinine-Blood 1.7 mg/dL (High)?? 08/24/2023 15:56 Estimated GFR Creatinine 46 ML/MIN/1.73 M2 ()?? 08/24/2023 15:56 Calcium 10.5 mg/dL ()?? 08/24/2023 15:56 Magnesium 2.0 mg/dL ()?? 08/24/2023 15:56 Protein, Total 7.5 Gm/dL ()?? 08/24/2023 15:56 Albumin 5.2 Gm/dL (High)?? 08/24/2023 15:56 AG Ratio 2.3 ()?? 08/24/2023 15:56 Alkaline Phosphatase 47 units/L ()?? 08/24/2023 15:56 Lipase 41 units/L ()?? 08/24/2023 15:56 AST (SGOT) 45 units/L (High)?? 08/24/2023 15:56 ALT (SGPT) 64 units/L (High)?? 08/24/2023 15:56 Bilirubin, Total 0.4 mg/dL ()?? 08/24/2023 15:56 Vitamin B12 Level 617 pg/mL ()?? 08/24/2023 15:56 ?? ENDOCRINE/TUMOR MARKER TSH 268.00 uIU/mL (High)?? 08/24/2023 15:56 Free T4 0.15 ng/dL (Low)?? 08/24/2023 15:56 ?? TOXICOLOGY/TDM Ethanol, Serum or Plasma NONE DETECTED mg/dL ()?? 08/24/2023 15:56 ?? VIROLOGY COVID-19 PCR Specimen Source NASAL ()?? 08/24/2023 15:03 COVID-19 PCR Result NEGATIVE ()?? 08/24/2023 15:03 ? EKG study * Event Display: EKG Authored Date: * Event Display: ECG 12-Lead Authored Date: Please click on pdf link to open report * Event Display: ECG 12-Lead Authored Date: Ventricular Rate: 84 BPM Atrial Rate: 84 BPM P-R Interval: 194 ms QRS Duration: 94 ms Q-T Interval: 388 ms QTC Calculation(Bazett): 458 ms P Matthews: 32 degrees R Matthews: -63 degrees T Matthews: 30 degrees Normal sinus rhythm Left axis deviation Low voltage QRS Abnormal ECG When compared with ECG of 30-NOV-2009 05:18, Leftward axis Confirmed by BLUE ESTRADA MD ([id number]) on 08/26/2023 9:08:04 AM [place]: BLUE ESTRADA MD Cardiology * Event Display: Cardiac Rhythm Strips Authored Date: Hospital Progress note * Iris Tariq RN: PERFORM, MODIFY, SIGN, VERIFY Event Display: Progress Note Hospital Authored Date: Patient: BANDAR YEPEZ Age: 63 years Sex: Male : 1960 Associated Diagnoses: None Author: Iris Tariq RN Findings Problem Related to Alteration in Endocrine : Alteration in Endocrine Function/new 08/28/2023 1:55 EDT Alteration in Endocrine Related to Other: hypothroidism Goals & Outcomes, Endocrine Pt will receive/maintain adequate nutrition status, Pt will resume/maintain adequate cardiac output, Pt will maintain adequate GI/ function appropriate for pt Interventions, Endocrine Assess skin turgor, temperature & capillary refill, Maintain IV access, Maintain strict I&O, Teach Pt/caregiver use of home glucose monitoring BH Goals/Interventions, Endocrine Yes Endocrine, Problem Start 08/26/2023 9:27 Reviewed Plan with, Endocrine Patient Patient Progression, Endocrine Pt progressing according to plan . Evaluation Patient admitted due to hypothyroidism and hallucinations. Patient is AOx4 and VS are stable. Patient has no c/o pain. He doesn't report any hallucinations or signs and ysmptoms of hypothyroidism. Heis on telemetry and it shows normal sinus rhythm as his rhythm. He is independent to the bathroom. Respirations are regular, clear, and unlabored. Please see biophysical assessment for full assessment.. * Aaron ESPITIA, Beka: PERFORM Event Display: Progress Note Hospital Authored Date: [id number] Patient: ??BANDAR YEPEZ ? Age:??63 Years?Sex:??Male?:??1960?? Subjective patient seen and examined at bedside patient denies any?? chest?? pain , shortness of breath?? or any other acute complaints Review of Systems A full review of systems was completed and is otherwise negative except as mentioned in history of present illness. Objective Vital Signs?? Temperature: 97.7 DegF (08/27/23 11:16:00) Temperature Route: Oral (08/27/23 11:16:00) Pulse Rate: 71 bpm (08/27/23 11:16:00) Respiratory Rate: 18 br/min (08/27/23 11:16:00) Systolic Blood Pressure: 124 mm Hg (08/27/23 11:16:00) Diastolic Blood Pressure: 78 mm Hg (08/27/23 11:16:00) Blood pressure sites: Arm, right (08/27/23 11:16:00) Mean Arterial Pressure: 93 mm Hg (08/27/23 11:16:00) Pulse Pressure: 46 mm Hg (08/27/23 11:16:00) Oxygen Saturation: 100 % (08/27/23 11:16:00) Mode of Delivery (Oxygen): Room air (08/27/23 11:16:00) Early Warning Score: 2 (08/27/23 11:16:34) ? Intake/Output? 08/24 20:03 08/27 07:00 08/26 07:00 08/25 07:00 08/24 07:00 ?? 08/27 15:19 08/27 15:19 08/27 06:59 08/26 06:59 08/25 06:59 Intake ? 4094 ? 1754 ? 2340 ?0 ?0 Output ? 2850 ? 1600 ? 1250 ?0 ?0 Net Total ? 1244 ?154 ? 1090 ?0 ?0 ? Physical Exam ?? General Appearance: The patient is a _ and in NAD. Cardiovascular: RRR S1 and S2 heard with no M/R/G. No JVD. Respiratory: ??Breath sounds clear to auscultation bilaterally. No wheezing. Good air movement throughout both lungs. GI: Soft. Nontender and nondistended. Normal bowel sounds present throughout abdomen.?? MS: ??No edema or erythema in the lower extremities. No wounds seen on the feet. Peripheral sensation intact.?? Neuro: ??No slurred speech. ??Patient seen moving their upper and lower extremities independently. Psych: Alert and oriented x3. Appropriate and pleasant. .?? _ Home Medications Levothyroxine (levothyroxine 0.1 mg oral tablet)?2 tablets?By Mouth?Daily Sertraline (sertraline 100 mg oral tablet)?1.5?tab(s)?150?Milligram?By Mouth?Daily ? Inpatient Medications Medications (16) Active SCHEDULED: (6) Divalproex 250 mg Tablet (Depakote Tablet) ??250 mg, By Mouth, 2 times a day Enoxaparin 40 mg Inj (Enoxaparin Inj) ??40 mg 0.4 mL, Subcutaneous Injection, Every 24 hours Levothyroxine 100 mcg Tablet (levothyroxine 0.1 mg oral tablet) ??200 mcg, By Mouth, Daily NaCl 0.9% Flush 3ml (NaCL 0.9% Flush) ??3 mL, IV Push, Every 8 hours Risperidone 0.25 mg Tablet (risperiDONE 0.25 mg oral tablet) ??0.25 mg, By Mouth, Daily at bedtime Senna Tablet (Senna 8.6 mg oral tablet) ??17.2 mg 2 tablet, By Mouth, Daily CONTINUOUS: (1) Lactated Ringers (1000 mL) Cont IV 1,000 mL (LR 1,000 mL) ??1,000 mL, IV Infusion, 100 mL/hr PRN: (9) Acetaminophen 325 mg Tablet (Acetaminophen Tablet) ??650 mg, By Mouth, Every 4 hours Al hydroxide/Mg hydroxide/simethicone 200 mg-200 mg-20 mg/5 mL Susp UD (Maalox Plus Liquid) ??15 mL, By Mouth, 4 times a day Dextromethorphan-Guaifenesin 20 mg-200 mg/10 mL Liqu UD (Robitussin DM Liquid) ??10 mL, By Mouth, Every 4 hours Docusate Sodium 100 mg Capsule (Docusate Sodium Capsule) ??100 mg 1 capsule, By Mouth, 2 times a day Melatonin 3 mg Tablet (Melatonin Tablet) ??3 mg, By Mouth, Daily at bedtime NaCl 0.9% Flush 3ml (NaCL 0.9% Flush) ??3 mL, IV Push, Every 8 hours Polyethylene Glycol 17 Gm Powder (MiraLax Powder) ??17 Gm 1 pack/packet, By Mouth, Daily Senna Tablet ??8.6 mg 1 tablet, By Mouth, 2 times a day Simethicone 80 mg Chewable Tablet (Simethicone Tablet) ??80 mg, Chew, 3 times a day ? Results Recent Labs BLOOD COUNT & DIFF WBC 6.0 k/mm3 ()?? 08/26/2023 08:58 RBC 3.72 m/mm3 (Low)?? 08/26/2023 08:58 Hgb 12.2 Gm/dL (Low)?? 08/26/2023 08:58 Hct 36.5 % (Low)?? 08/26/2023 08:58 MCV 98.1 femtoliters (High)?? 08/26/2023 08:58 MCH 32.8 pg ()?? 08/26/2023 08:58 MCHC 33.4 g/dL ()?? 08/26/2023 08:58 Platelet Count 178 k/mm3 ()?? 08/26/2023 08:58 RDW-SD 45.1 femtoliters ()?? 08/26/2023 08:58 MPV 10.2 femtoliters ()?? 08/26/2023 08:58 Nucleated RBC (Automated) 0.0 #/100 WBC'S ()?? 08/26/2023 08:58 Abs. NRBC 0.0 k/mm3 ()?? 08/26/2023 08:58 Abs. Neut 3.7 k/mm3 ()?? 08/26/2023 08:58 Abs. Lymph 1.6 k/mm3 ()?? 08/26/2023 08:58 Abs. Meade 0.3 k/mm3 (Low)?? 08/26/2023 08:58 Abs. Eo 0.3 k/mm3 ()?? 08/26/2023 08:58 Abs. Baso 0.0 k/mm3 ()?? 08/26/2023 08:58 Neut % 62.3 % ()?? 08/26/2023 08:58 Lymph % 26.8 % ()?? 08/26/2023 08:58 Meade % 5.7 % ()?? 08/26/2023 08:58 Eos % 4.3 % ()?? 08/26/2023 08:58 Baso % 0.7 % ()?? 08/26/2023 08:58 Imm Gran 0.2 % ()?? 08/26/2023 08:58 Abs. Imm Gran 0.0 k/mm3 ()?? 08/26/2023 08:58 ?? CHEM GENERAL Sodium 136 mmol/L ()?? 08/26/2023 08:58 Potassium 4.8 mmol/L ()?? 08/26/2023 08:58 Chloride 98 mmol/L ()?? 08/26/2023 08:58 Bicarbonate Level 27 mmol/L ()?? 08/26/2023 08:58 Anion Gap 11 ()?? 08/26/2023 08:58 Glucose Level 95 mg/dL ()?? 08/26/2023 08:58 BUN 21 mg/dL ()?? 08/26/2023 08:58 Creatinine-Blood 1.3 mg/dL (High)?? 08/26/2023 08:58 Estimated GFR Creatinine 60 ML/MIN/1.73 M2 ()?? 08/26/2023 08:58 Calcium 9.9 mg/dL ()?? 08/26/2023 08:58 Protein, Total 7.0 Gm/dL ()?? 08/26/2023 08:58 Albumin 4.8 Gm/dL ()?? 08/26/2023 08:58 AG Ratio 2.2 ()?? 08/26/2023 08:58 Alkaline Phosphatase 48 units/L ()?? 08/26/2023 08:58 AST (SGOT) 49 units/L (High)?? 08/26/2023 08:58 ALT (SGPT) 67 units/L (High)?? 08/26/2023 08:58 Bilirubin, Total 0.4 mg/dL ()?? 08/26/2023 08:58 ?? ENDOCRINE/TUMOR MARKER Free T4 0.22 ng/dL (Low)?? 08/27/2023 00:28 ?? URINE OTHER Est Creatinine Clearance 57.21 mL/min ()?? 08/26/2023 09:38 ? Assessment/Plan ?? 63-year-old male patient with a past medical history of depression/anxiety/bipolar disorder, hypothyroidism who presents today to the emergency department for evaluation of someone is reading my thoughts . ?? Profound hypothyroidism Etiology-medication noncompliance Endocrinology on board and appreciated input Will??continue levothyroxine 200 mcg daily. Patient should take this medication first in the morning on an empty stomach. Patient does not need any T3 supplements. ??- Please check Free T4 in AM. ??- Follow-up with the PCP with thyroid functions tests in 4 weeks as an outpatient ? Transaminitis: ??History of 45, ALT of 64. ??Patient has a history of alcohol use disorder (last use was couple months ago). ??Likely related to alcohol intake and fatty liver ??continue to monitor while inpatient. ?? Acute kidney injury Unknown previous baseline, creatinine 1.9 in 2019 ??Presented with serum creatinine of 1.7, serum creatinine??improved to 1.3 ??Renal dose medications, avoid nephrotoxins, daily serum creatinine monitoring ? Depression/anxiety/bipolar disorder ??Supposed to be on sertraline, trazodone, and Depakote. ??Has not been taking any of his medications Not Suicidal ??Presented to the hospital because of paranoid delusion as well as auditory hallucination psych?? consulted?? recommended?? to?? start risperidone for 5 days started Depakote 250?? mg bid ?? CODE STATUS-full code ??DVT prophylaxis-Lovenox ?? omn :?? stefan?? improving , on iv fluids can be discharged in am appreaciate psych?? recs ?? * Kelly Galdamez RN: PERFORM, SIGN, VERIFY Event Display: Progress Note Hospital Authored Date: [id number] Patient: BANDAR YEPEZ Age: 63 years Sex: Male : 1960 Associated Diagnoses: None Author: Rudolph LO, Kelly Findings Problem Related to Alteration in Endocrine : Alteration in Endocrine Function/new 08/26/2023 21:00 EDT Alteration in Endocrine Related to Other: hypothroidism Goals & Outcomes, Endocrine Pt will receive/maintain adequate nutrition status, Pt will resume/maintain adequate cardiac output, Pt will maintain adequate GI/ function appropriate for pt Interventions, Endocrine Assess/monitor GI/ status, Assess skin turgor, temperature & capillary refill, Consider Door Maker consult; review recommendations, DVT prophylaxis as ordered, Maintain IV access, Maintain strict I&O, Monitor & document daily weight, Monitor pt's response to IVhydration, Provide info on community resources for education, support, Teach Pt/caregiver activity instructions, Teach Pt/caregiver pain management strategies, Teach Pt/caregiver signs & symptomsof hypoglycemia, Teach Pt/caregiver signs & symptoms of hyperglycemia, Teach Pt/caregiver use of home glucose monitoring, Teach Pt/caregiver Medic Alert bracelet/Wallet Notification BH Goals/Interventions, Endocrine Yes Endocrine, Problem Start 08/26/2023 9:27 Reviewed Plan with, Endocrine Patient Patient Progression, Endocrine Pt progressing according to plan . Nursing Data Activity Data 08/25/2023 12:30 EDT Ambulatory devices needed None . Apnea/Bradycardia : Apnea/Bradycardia 08/26/2023 23:40 EDT Pulse Rate 60 bpm Oxygen Saturation 96 % . Cardiac Data. : Cardiac Data. 08/26/2023 20:30 EDT Cardiovascular WNL . Gastrointestinal Data. : Gastrointestinal Data. 08/26/2023 20:30 EDT Last Bowel Movement 08/24/2023 GI WNL . Genitourinary Data. : Genitourinary Data. 08/26/2023 20:30 EDT WNL . Integumentary Data. : Integumentary Data. 08/26/2023 20:30 EDT Skin Integrity Intact Integumentary WNL except . Musculoskeletal Data. : Musculoskeletal Data. 08/26/2023 20:30 EDT Musculoskeletal Symptoms None Musculoskeletal WNL except . Neurological Data. : Neurological Data. 08/26/2023 20:30 EDT Neurological Symptoms None Orientated to person, place, time Person, Place, Time, Event 1 - 10 Pain Scale Score 0 Neuro WNL except . Patient Care Data. : Patient Care Data. 08/26/2023 20:34 EDT Turn and Reposition While in bed Sequential Compression Device Not ordered TEDS Not indicated/Not ordered ID band on Yes Allergy band in place/verified Yes Blood Pressure/Venipuncture All 4 limbs may be used Call Pascal in Reach-Ensure Ability to Use Yes Patient Instructed on Use of Call Pascal Yes Standard Safety Bed in low position . Respiratory/Pulmonary Data. 08/26/2023 20:30 EDT Upper Airway Clear Left Upper Lobe Breath Sounds Clear Right Upper Lobe Breath Sounds Clear Right Middle Lobe Breath Sounds Clear Left Lower Lobe Breath Sounds Clear Right Lower Lobe Breath Sounds Clear Respiratory WNL except . Vital Signs : VITAL SIGNS SECTION 08/26/2023 23:40 EDT Temperature 98.1 DegF Temperature Route Oral Pulse Rate 60 bpm Respiratory Rate 18 br/min Systolic Blood Pressure 100 mm Hg Diastolic Blood Pressure 56 mm Hg Blood pressure sites Arm, right Mean Arterial Pressure 71 mm Hg Pulse Pressure 44 mm Hg Oxygen Saturation 96 % Mode of Delivery (Oxygen) Room air . Pain Data : PAIN SECTION 08/26/2023 20:30 EDT 1 - 10 Pain Scale Score 0 . Psychosocial : Psychosocial Data. 08/25/2023 21:00 EDT Affect/Behavior Calm, Cooperative . Evaluation Patient is alert and oriented times3 . Lung sounds clear . Positive pedal pulses . Abdomen soft , reported last time BM 08/24/23. Tolerating Regular diet , no c/o nausea or vomiuting . Patient voidingclear yellow urine u/o at 2300-400cc. Skin dry . C/o indijestion medicated with Malax 15 ml with effect . IV fluid LR infusing as ordered. . Plan of care ongoing.. Consult note * Dimitris Barnhart DO: PERFORM, MODIFY Javid White: MODIFY, MODIFY Javid White: MODIFY, MODIFY Javid White: MODIFY, MODIFY Javid White: MODIFY Event Display: Consultation Note Authored Date: Patient: ??BANDAR YEPEZ ? Age:??63 Years?Sex:??Male?:??1960?? Chief Complaint/Reason for Consultation Psychiatry consult due to paranoid thoughts in patient with history of depression/bipolar disorder who has not taken his medications for 2 years History of Present Illness Referring Provider:??Louie Keller MD Consulting psychiatrist:??Dimitris Barnhart DO Sources of information:??[facility], patient ?? Identifying information:?? Patient is a 63-year-old male patient with a past medical history of??depression/bipolar disorder and??hypothyroidism??who has??been out of his home medications for 2-3 years. He presented to the [facility]??for evaluation of someone is reading my thoughts. ??He reports that??his neighbors are??listening to his mind??and someone is??reading his thoughts.??He was on sertraline and Depakote??but has not??not been taking them for the past 2-3 years.?? He was also supposed to be on??levothyroxine??200 mcg, but has not taken it for the past 2 years.?? In the ED, was hemodynamically stable with a soft blood pressure, BP of 99/83, afebrile, maintaining saturation 95% on room air, pulse rate was 78.??CXR and CT scan of the head without evidence of acute abnormalities.?? Initial blood work was notable for mild transaminitis with AST of 45 and ALT of 64.?? Creatinine 1.7 (baseline creatinine of 0.9 in 2019).?? TSH was remarkably elevated at 268, free T4 was low at 0.15.?? Admission was req uested for further management of??uncontrolled hypothyroidism. Endocrinology consulted for severe hypothyroidism, and restarted levothyroxine 200 mcg. Psychiatry was consulted due to paranoid thoughts with history of depression/bipolar disorder. ?? Patient reports that for approximately the last month, he has been experiencing increasingly distressing paranoid thoughts. He states that he will develop the feeling that someone knows what I'm typing on the computer or watching on TV. He reports that these thoughts were initially brief, but recently became more persistent. He says he then started to feel as if his apartment neighbors upstairscould tell what he was thinking. Eventually, these thoughts were distressing enough that he called the police to bring him to the hospital. He acknowledges that he knows that people can't tell his thoughts, but notes they felt very real. He attributes these paranoid thoughts to discontinuing levot hyroxine, as he states similar paranoid thoughts developed years ago after he stopped taking levothyroxine. He denies having paranoid thoughts while taking levothyroxine, or when he was younger. Patient reports he has not taken levothyroxine, as well as Depakote and sertraline,??for 2-3 years due to mobility and transportation issues preventing him from attending his doctor's appointments. ?? Since stopping Depakote and sertraline, patient reports his mood has been more labile. He endorses a history of an elevated mood, increased activity level, distractibility, and??rapid speech??lasting1-4 days??before swinging into a depressed episode of low mood, anhedonia, poor sleep, poor concentration and SI lasting up to a week. He endorses having intermittent suicidal ideation during depressive episodes and with the recent distressing paranoid thoughts, stating if I were to have a gun I think I might kill myself. He notes that a sense of obligation to his daughters prevents those passing thoughts from developing further. He??denies having access to weapons. ?? He additionally endorses having occasional vivid visual hallucinations during the past year. He reports that he will distinctly see his neighbors and their relatives??in his apartment and later find out that they weren't there. He reports that these hallucinations occurred when he was drinking alcohol more heavily. He reports the hallucinations stopped a few days after he stopped drinking, and hedenies a prior history of hallucinations. He denies auditory hallucinations. ?? Past Psychiatric History?? Previous diagnoses: bipolar disorder, depression, anxiety Past hospitalizations: denies Medication trials:?? - sertraline 100 mg (last filled 03/2020) - Divalproex delayed release 250 mg BID (last filled 2019) - trazodone 50 mg (last filled 2018) - lurasidone 20 mg daily (last filled 2018) - melatonin 10 mg qhs (last filled 2019) Past outpatient providers: no outpatient psychiatrist or therapist; last saw PCP ~3 years ago Past suicide attempts: denies ?? Family Psychiatric History - brother with bipolar/schizophrenia who required long-term hospitalization in locked unit - uncle with bipolar disorder ?? Social History?? 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 Substance Use History?? - reports heavy alcohol intake daily for 9 years (1/2 large bottle of spiced rum or whisky daily); stopped drinking 3 months ago - smoked marijuana daily until quitting 6-7 months ago - smokes 1/2-1 ppd of cigarettes x 50 years; nicotine patch was effective but caused rash, nicotinegum was ineffective - denies current or prior use of other illict substances ?? Psychiatric Review of Systems (Positive in bold) Depression: depressed mood, anhedonia, decreased sleep, guiltiness/worthlessness, low energy, trouble concentrating, loss of/ excessive appetite, psychomotor retardation/ agitation, SI. ?? Marilyn: denies current symptoms of marilyn, including elated mood, high energy with little to no sleepfor consecutive days, racing thoughts, impulsivity. ?? Psychosis: delusions (paranoid), auditory or visual hallucinations, disorganized speech, disorganized behavior, negative symptoms. ?? Anxiety: increased anxiety, racing thoughts, panic attacks ?? PTSD: denies symptoms of PTSD, such as flashbacks, nightmares, increased vigilance and startle reflex, intrusive thoughts, avoidance of reminders Review of Systems Medical ROS:??A full ROS was completed and was negative with the exception of pertinent positives noted in the history of the presenting illness?? Objective Vital Signs?? Temperature: 97.7 DegF (08/27/23 07:54:00) Temperature Route: Axillary (08/27/23 07:54:00) Pulse Rate: 60 bpm (08/27/23 07:54:00) Respiratory Rate: 18 br/min (08/27/23 07:54:00) Systolic Blood Pressure: 130 mm Hg (08/27/23 07:54:00) Diastolic Blood Pressure: 72 mm Hg (08/27/23 07:54:00) Blood pressure sites: Arm, right (08/27/23 07:54:00) Mean Arterial Pressure: 91 mm Hg (08/27/23 07:54:00) Pulse Pressure: 58 mm Hg (08/27/23 07:54:00) Oxygen Saturation: 94 % (08/27/23 07:54:00) Mode of Delivery (Oxygen): Room air (08/27/23 07:54:00) Early Warning Score: 4 (08/27/23 07:55:06) ? Physical Exam Mental Status Exam Appearance: This is a male dressed in hospital gown,??NAD, appears stated age, good??hygiene Eye contact: appropriate Attitude: cooperative with pleasant demeanor?? Motor Activity:??no tremors, no psychomotor agitation or??slowing Mood: moderate, not up or down Affect: congruent to stated mood, full range, supple motility Speech: normal rate, tone and prosody?? Perception:??currently denies auditory or visual hallucinations, does not appear to be responding to internal stimuli Orientation: intact ? Memory: intact Thought Process: Linear??and goal directed, associations intact Thought Content: endorses paranoid delusions of neighbors being able to hear his thoughts, know what he's watching on TV and know what he's typing on his computer; endorses intermittent suicidal ideation without plan; denies homicidal ideation Insight: impaired Judgment: impaired? MSK Exam:??able to move all 4 extremities spontaneously. No rigidity noted.?? Assessment/Plan ?? Assessment:? Patient is a 63-year-old male patient with a past medical history of??depression/anxiety/bipolar disorder and??hypothyroidism??who has??been out of his home medications for 2-3 years??who presented to the [facility] on 08/24??for evaluation of someone is reading my thoughts. ??He reports that??his neighbors are??listening to his mind??and someone is??reading his thoughts.??He was on sertraline and Depakote??but has not??not been taking them for the past 2-3 years.?? He was also supposed to be on??levothyroxine??200 mcg, but has not taken it for the past 2 years.?? In the ED, was hemodynamically stable with a soft blood pressure, BP of 99/83, afebrile, maintaining saturation 95% on room air, pulse rate was 78.??CXR and CT scan of the head without evidence of acute abnormalities.?? Initial blood work was notable for mild transaminitis with AST of 45 and ALT of 64.?? Creatinine 1.7 (baseline creatinine of 0.9 in 2019).?? TSH was remarkably elevated at 268, free T4 was low at 0.15.?? Admission was requested for further management of??uncontrolled hypothyroidism. Endocrinology consulted forsevere hypothyroidism, restarted levothyroxine 200 mcg. Psychiatry consulted due to paranoid thoughts in patient with history of depression/bipolar disorder. ?? On assessment, patient endorses 1 month history of increasingly distressing paranoid delusions in the context of not taking his home thyroid replacement medication, as well as his antidepressant and mood stabilizer. Based on the interview, the paranoid delusions have only occurred in the context ofmedication non-adherence and are not symptoms he has had chronically.??Likewise, his reported??visual hallucinations occur exclusively in the setting of alcohol intoxication or withdrawal.??On exam, he does not exhibit other symptoms that would suggest a primary psychotic disorder, such as auditory/visual hallucinations, disorganized speech, grossly disorganized behavior, or negative symptoms. Atthis time, his presentation best fits criteria for psychotic disorder due to severe hypothyroidism,with delusions.??We recommend a short course of low-dose risperidone while the hypothyroidism in being corrected to reduce the distress of the paranoid delusions. ?? Patient has a documented history of major depressive episodes, as well as a diagnosis of bipolar disorder. His reported manic symptoms only last up to 4 days and have not been severe enough to require hospitalization, suggesting that these are hypomanic episodes and that his presentation is most consistent with bipolar??2 disorder.??Since running out of??his home regimen of Depakote and sertraline, he has noted increased mood lability without distinct manic or major depressive episodes. We recommend he start Depakote 250 mg BID for mood stability, while holding off on restarting sertraline due to recent labile mood and paranoid delusions. ?? The patient is currently at low acute risk for suicide. While he endorses intermittent suicidal ideation due to his distressing paranoid thoughts and he has chronic risk factors (history of depression and bipolar disorder, male sex, , substance use history), he has multiple protective factors, including no current SI with plan, no prior suicide attempts, help-seeking behavior, and strong feelings of obligation to family. He does??not meet requirements for inpatient psychiatric hospitalization at this time, and does not require a 1:1 sitter or suicide precautions. ?? DSM-V Diagnoses: 1. 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 Bipolar 2 disorder 3. Tobacco use disorder, mild 4. Alcohol use disorder, in early remission 5. Cannabis use disorder, in early remission ?? Recommendations: -??No acute concern for SI. Does not require suicide precautions, constant home companion, or inpatient psychiatric hospitalization - Start risperidone 0.25 mg at bedtime for 1 week for paranoia, then discontinue - Start Depakote 250 mg twice daily for mood instability - Consider holding off on restarting sertraline at this time to prevent exacerbation of recent moodinstability ?? Thank you for allowing us to participate in this patient's care. Please feel free to contact thePsychiatry consult service (call [phone] or page [phone]) with any questions or concerns.? Case and plan discussed with attending psychiatrist, Dr. Dimitris Barnhart DO Recommendations??communicated via [facility] to Dr. Beka Walker MD ?? Javid White, MS4 Department of Psychiatry ? Histories Allergies Allergies ?(Active and Proposed Allergies Only) Percocet 7.5/325? (Severity: Unknown severity, Onset: Unknown) morphine? (Severity: Unknown severity, Onset: Unknown) ? Past Medical History/Problem List Active Problems??(7) Alcohol Anemia Bipolar disease, chronic Obese class I PE - Pulmonary embolism Post traumatic stress disorder (PTSD) Tobacco user ? Past Surgical History No surgery history documented. ? Social History Tobacco Details:??Use: 10 or more cigarettes (1/2 pack or more)/day in last 30 days. ? Psychosocial History ? Family History Mother (): Colon cancer ?14-OCT-2016 21:52:24<$>; Hypothyroid ? 15-OCT-2016 04:31:44<$> Father (): Lung cancer ? 07-SEP-2016 21:52:27<$> Brother (): Mental illness ? Medications Home Medications Levothyroxine (levothyroxine 0.1 mg oral tablet)?2 tablets?By Mouth?Daily Sertraline (sertraline 100 mg oral tablet)?1.5?tab(s)?150?Milligram?By Mouth?Daily ? Inpatient Medications Medications (15) Active SCHEDULED: (4) Enoxaparin 40 mg Inj (Enoxaparin Inj) ??40 mg 0.4 mL, Subcutaneous Injection, Every 24 hours Levothyroxine 100 mcg Tablet (levothyroxine 0.1 mg oral tablet) ??200 mcg, By Mouth, Daily NaCl 0.9% Flush 3ml (NaCL 0.9% Flush) ??3 mL, IV Push, Every 8 hours Senna Tablet (Senna 8.6 mg oral tablet) ??17.2 mg 2 tablet, By Mouth, Daily CONTINUOUS: (1) Lactated Ringers (1000 mL) Cont IV 1,000 mL (LR 1,000 mL) ??1,000 mL, IV Infusion, 100 mL/hr PRN: (10) Acetaminophen 325 mg Tablet (Acetaminophen Tablet) ??650 mg, By Mouth, Every 4 hours Al hydroxide/Mg hydroxide/simethicone 200 mg-200 mg-20 mg/5 mL Susp UD (Maalox Plus Liquid) ??15 mL, By Mouth, 4 times a day Dextromethorphan-Guaifenesin 20 mg-200 mg/10 mL Liqu UD (Robitussin DM Liquid) ??10 mL, By Mouth, Every 4 hours Docusate Sodium 100 mg Capsule (Docusate Sodium Capsule) ??100 mg 1 capsule, By Mouth, 2 times a day Melatonin 3 mg Tablet (Melatonin Tablet) ??3 mg, By Mouth, Daily at bedtime NaCl 0.9% Flush 3ml (NaCL 0.9% Flush) ??3 mL, IV Push, Every 8 hours Polyethylene Glycol 17 Gm Powder (MiraLax Powder) ??17 Gm 1 pack/packet, By Mouth, Daily Polyethylene Glycol 17 Gm Powder (MiraLax Powder) ??17 Gm 1 pack/packet, By Mouth, Daily Senna Tablet ??8.6 mg 1 tablet, By Mouth, 2 times a day Simethicone 80 mg Chewable Tablet (Simethicone Tablet) ??80 mg, Chew, 3 times a day ? Results Recent Labs BLOOD COUNT & DIFF WBC 6.0 k/mm3 ()?? 08/26/2023 08:58 RBC 3.72 m/mm3 (Low)?? 08/26/2023 08:58 Hgb 12.2 Gm/dL (Low)?? 08/26/2023 08:58 Hct 36.5 % (Low)?? 08/26/2023 08:58 MCV 98.1 femtoliters (High)?? 08/26/2023 08:58 MCH 32.8 pg ()?? 08/26/2023 08:58 MCHC 33.4 g/dL ()?? 08/26/2023 08:58 Platelet Count 178 k/mm3 ()?? 08/26/2023 08:58 RDW-SD 45.1 femtoliters ()?? 08/26/2023 08:58 MPV 10.2 femtoliters ()?? 08/26/2023 08:58 Nucleated RBC (Automated) 0.0 #/100 WBC'S ()?? 08/26/2023 08:58 Abs. NRBC 0.0 k/mm3 ()?? 08/26/2023 08:58 Abs. Neut 3.7 k/mm3 ()?? 08/26/2023 08:58 Abs. Lymph 1.6 k/mm3 ()?? 08/26/2023 08:58 Abs. Meade 0.3 k/mm3 (Low)?? 08/26/2023 08:58 Abs. Eo 0.3 k/mm3 ()?? 08/26/2023 08:58 Abs. Baso 0.0 k/mm3 ()?? 08/26/2023 08:58 Neut % 62.3 % ()?? 08/26/2023 08:58 Lymph % 26.8 % ()?? 08/26/2023 08:58 Meade % 5.7 % ()?? 08/26/2023 08:58 Eos % 4.3 % ()?? 08/26/2023 08:58 Baso % 0.7 % ()?? 08/26/2023 08:58 Imm Gran 0.2 % ()?? 08/26/2023 08:58 Abs. Imm Gran 0.0 k/mm3 ()?? 08/26/2023 08:58 ?? CHEM GENERAL Sodium 136 mmol/L ()?? 08/26/2023 08:58 Potassium 4.8 mmol/L ()?? 08/26/2023 08:58 Chloride 98 mmol/L ()?? 08/26/2023 08:58 Bicarbonate Level 27 mmol/L ()?? 08/26/2023 08:58 Anion Gap 11 ()?? 08/26/2023 08:58 Glucose Level 95 mg/dL ()?? 08/26/2023 08:58 BUN 21 mg/dL ()?? 08/26/2023 08:58 Creatinine-Blood 1.3 mg/dL (High)?? 08/26/2023 08:58 Estimated GFR Creatinine 60 ML/MIN/1.73 M2 ()?? 08/26/2023 08:58 Calcium 9.9 mg/dL ()?? 08/26/2023 08:58 Protein, Total 7.0 Gm/dL ()?? 08/26/2023 08:58 Albumin 4.8 Gm/dL ()?? 08/26/2023 08:58 AG Ratio 2.2 ()?? 08/26/2023 08:58 Alkaline Phosphatase 48 units/L ()?? 08/26/2023 08:58 AST (SGOT) 49 units/L (High)?? 08/26/2023 08:58 ALT (SGPT) 67 units/L (High)?? 08/26/2023 08:58 Bilirubin, Total 0.4 mg/dL ()?? 08/26/2023 08:58 ?? ENDOCRINE/TUMOR MARKER Free T4 0.22 ng/dL (Low)?? 08/27/2023 00:28 ?? URINE OTHER Est Creatinine Clearance 57.21 mL/min ()?? 08/26/2023 09:38 ? Abnormal Labs ?? ENDOCRINE/TUMOR MARKER ??Free T4 ??0.22 ng/dL (Low) ??08/27/2023 00:28 ? Note: Critical results are displayed in red. ? * Shaikh OMKAR, Renny: PERFORM Event Display: Consultation Note Authored Date: Patient: ??BANDAR YEPEZ ? Age:??63 Years?Sex:??Male?:??1960?? Chief Complaint Severe??hypothyroidism, delusions Reason for Consultation Reason for consultation: Severe hypothyroidism Consult requesting service: Hospital medicine Consult requesting physician: Leah Bryson History of Present Illness This is 63 years old male??with a past medical history of??depression/anxiety/bipolar disorder, hypothyroidism and arthritis??who presented??to the emergency department??for evaluation of someone isreading my thoughts .??Pt used to be on depression/anxiety/bipolar disorder medications in the past??including trazodone, sertraline, Depakote??however has not??not been taking any meds??for the past2 to 3 years.?? He also supposed to be on??200 mcg of levothyroxine for hypothyroidism, but has nottaken any levothyroxine for the past 2 years as he could not get??any further refills. ??Endocrine team was consulted as patient was found with significantly elevated TSH levels at the time of??admission. ?? At the time of my examination??patient was??fully alert and oriented.?? He reported that he has arthritis and was unable to walk to the??pharmacy to get his??thyroid medications [facility] in more than 3 years.?? Once his prescriptions ??more than 2 years ago he was unable to??get refills.?? Patient does??c/o??cold intolerance??but denies any??significant changes in??his weight,??change in bowel habits,??any palpitations??or??dizziness. ??He reported that??he??has mental??fog where he feels like??some people are listening to him orwatching him. ?? In the emergency department, was hemodynamically stable with a soft blood pressure, BP of 99/83,afebrile, maintaining saturation 95% on room air, pulse rate was 78.?? Chest x-ray without evidenceof acute cardiopulmonary abnormalities.?? CT scan of the head without evidence of acute intracranial abnormalities.?? Initial blood work was notable for mild transaminitis with AST of 45 and ALT of 64.?? Creatinine 1.7 (baseline creatinine of 0.9 in 2019).?? TSH was remarkably elevated at 268, freeT4 was low at 0.15. and T3 was 0.6. ?? Review of Systems A 14 point comprehensive ROS was performed and positive findings are mentioned in the HPI.?? Physical Exam Vitals & Measurements T:??97.7?F?? TMIN:??97.7?F?? TMAX:??98.1?F?? HR:??70??(Peripheral)?? RR:??19?? BP:??109/70?? SpO2:??98%?? Gen: NAD, AOX3 HEENT: EOMI Neck: Supple Chest: CTAB/L CVS: S1, S2 heard, no murmur Abd:soft, NT, ND, BS+ve Ext: no edema Skin: no rash Neuro: no focal neuro deficits, slow reflexes in the AC area. Assessment/Plan Briefly this is a 63-year-old female with a longstanding history of??hypothyroidism, depression, anxiety, bipolar disorder, arthritis??who came to the emergency department complaining of??delusions??of people??hearing??his thoughts. ??Reportedly patient has not taken any of his psych medications??and levothyroxine for more than 2 years??once he ran out of prescription.?? Patient was found to be significantly hypothyroid with a TSH of??268 with??severely??low free T4 and free T3 level.?? Patientdid not exhibit any??symptoms??of myxedema coma. ??He was fully alert at the time of examination??with the??stable electrolytes??and hemodynamics. ?? #Severe hypothyroidism ?? Recommendations: - Please continue levothyroxine 200 mcg??daily.?? Patient should take this medication first in the morning on an empty stomach. ??Patient does not need any??T3 supplements. - Follow free T4 levels??in??3 to 4 days. ??Patient will require repeat TSH and free T4 levels??in??4 weeks. - Follow-up with the PCP as an outpatient ?? Thank you for consulting endocrine team.?? Importance of regularly taking thyroid medication was??emphasized to the patient.?? Endocrine team will sign off please feel free to call us for any questions or concerns. ?? Case d/w ? Renny Buckley MD Endocrinology Fellow PGY-4 Total Time Spent Activities performed in this time include chart review, obtaining / reviewing history, performing amedically necessary evaluation, documentation and Communication with other health care providers including medical decision making of Moderate Complexity (45-59 minutes for NEW patient) Problem List/Past Medical History Ongoing Alcohol Anemia Bipolar disease, chronic PE - Pulmonary embolism Post traumatic stress disorder (PTSD) Tobacco user Medications Inpatient Acetaminophen Tablet, 650 mg, By Mouth, Every 4 hours, PRN Docusate Sodium Capsule, 100 mg= 1 capsule, By Mouth, 2 times a day, PRN Enoxaparin Inj, 40 mg= 0.4 mL, Subcutaneous Injection, Every 24 hours levothyroxine 0.1 mg oral tablet, 200 mcg, By Mouth, Daily LR 1,000 mL, 1000 mL, IV Infusion Melatonin Tablet, 3 mg, By Mouth, Daily at bedtime, PRN MiraLax Powder, 17 Gm= 1 pack/packet, By Mouth, Daily, PRN NaCL 0.9% Flush, 3 mL, IV Push, Every 8 hours NaCL 0.9% Flush, 3 mL, IV Push, Every 8 hours, PRN Robitussin DM Liquid, 10 mL, By Mouth, Every 4 hours, PRN Senna Tablet, 8.6 mg= 1 tablet, By Mouth, 2 times a day, PRN Simethicone Tablet, 80 mg, Chew, 3 times a day, PRN Home No active home medications Allergies Percocet 7.5/325 morphine Social History Tobacco Use: 10 or more cigarettes (1/2 pack or more)/day in last 30 days. Family History Colon cancer 07-SEP-2016 21:52:24<$>: Mother. Hypothyroid 08-SEP-2016 04:31:44<$>: Mother. Lung cancer 07-SEP-2016 21:52:27<$>: Father. Mental illness: Brother. * Amanda Medina MD: PERFORM Event Display: Consultation Note Authored Date: ??I have seen and evaluated this patient. ??I have discussed the case and its management with the fellow and agree with the findings and plan as documented in the fellow???s note.?? Note * Agapito Osorio RN: PERFORM Event Display: Discharge/Transfer Note Hospital Authored Date: [id number] 1455-discharge summary faxed to [facility] as requested and report received per fax machine * Agapito Osorio RN: PERFORM Event Display: Discharge/Transfer Note Hospital Authored Date: [id number] Nursing Discharge Note Entered On: 08/28/2023 10:55 EDT Performed On: 08/28/2023 10:54 EDT by Agapito Osorio RN Nursing Discharge Note 2 Discharge Time : 08/28/2023 12:05 EDT Verbalized Understanding of D/C Plan By : Patient Agapito Osorio RN - 08/28/2023 15:57 EDT Discharge Level of Care at Discharge : Home/Fdc/Foster Care Patient Left Unit Via : Wheelchair Agapito Osorio RN - 08/28/2023 10:54 EDT Patient Accompanied Off Unit with : Responsible adult, Other: uber ride Agapito Osorio RN - 08/28/2023 15:57 EDT DC Instructions Provided & Signed by Pt : Yes Patient Understands D/C Instructions : Yes Patient Instructions Discharge Signed : Yes Did Pt have Specialty Bed or Wound Vac : No Agapito Osorio RN - 08/28/2023 10:54 EDT * Norm ESPITIA, Leah: PERFORM, MODIFY, MODIFY Event Display: Discharge/Transfer Note Hospital Authored Date: Patient: ??BANDAR YEPEZ ? Age:??63 Years?Sex:??Male?:??1960?? Patient Information Discharge Location: [facility] Admit Date/Time: 08/24/23 20:03 Discharge Disposition Discharge Disposition: ?? Discharge Diagnosis Hypothyroidism (E03.9) ?? _ Discharge Medications Acamprosate (acamprosate 333 mg oral delayed release tablet)?2?tab(s)?666?Milligram?By Mouth?3 times a day?for 30?Days Divalproex Sodium (divalproex sodium 250 mg oral enteric coated tablet)?250?Milligram?By Mouth?2 times a day?for 60?Days Levothyroxine (levothyroxine 0.1 mg oral tablet)?200?Microgram?By Mouth?Daily?for 60?Days?Dose will be adjusted according to repeat lab. Lab to be done in 4 weeks. Melatonin (melatonin 3 mg oral tablet)?3?Milligram?By Mouth?Daily at bedtime?as needed?Insomnia?for 14?Days Risperidone (risperiDONE 0.25 mg oral tablet)?0.25?Milligram?1?tablet?By Mouth?Daily at bedtime?for 4?Days ? Medications Started Acamprosate (acamprosate 333 mg oral delayed release tablet)?2?tab(s)?666?Milligram?By Mouth?3 times a day?for 30?Days Divalproex Sodium (divalproex sodium 250 mg oral enteric coated tablet)?250?Milligram?By Mouth?2 times a day?for 60?Days Levothyroxine (levothyroxine 0.1 mg oral tablet)?200?Microgram?By Mouth?Daily?for 60?Days?Dose will be adjusted according to repeat lab. Lab to be done in 4 weeks. Melatonin (melatonin 3 mg oral tablet)?3?Milligram?By Mouth?Daily at bedtime?as needed?Insomnia?for 14?Days Risperidone (risperiDONE 0.25 mg oral tablet)?0.25?Milligram?1?tablet?By Mouth?Daily at bedtime?for 4?Days ? Medications Discontinued Sertraline Doses Changed Increased Levothyroxine Allergies Allergies ?(Active and Proposed Allergies Only) Percocet 7.5/325? (Severity: Unknown severity, Onset: Unknown) morphine? (Severity: Unknown severity, Onset: Unknown) ? PCP Follow-Up/Heads-Up Repeat TFT in 4 w and adjust levothyroxin dose Follow up LFT ?? Hospital Course ?? 63-year-old male patient with a past medical history of depression/anxiety/bipolar disorder, hypothyroidism who??presented to ED with psychosis??found to have profound hypothyroidism and STEFAN. Seen byendo and psych team. Pt has been stable.??Pt is??working on getting PCP. ?? Profound hypothyroidism Etiology-medication noncompliance Endocrinology on board and appreciated input Will??continue levothyroxine 200 mcg daily. Patient should take this medication first in the morning on an empty stomach. Patient does not need any T3 supplements. ??- Please check Free T4 in AM. ??- Follow-up with the PCP with thyroid functions tests in 4 weeks as an outpatient ?? Transaminitis History of??alcohol use disorder (last use was couple months ago). Likely related to alcohol intake and fatty liver continue to monitor while inpatient -Follow up as oupt ?? Acute kidney injury- resolved? Depression/anxiety/bipolar disorder Supposed to be on sertraline, trazodone, and Depakote. Has not been taking any of his medications Not Suicidal Presented to the hospital because of paranoid delusion as well as auditory hallucination ?? -Psych rec: Risperidone for 5 days Depakote 250?? mg bid ? Objective Vital Signs?? Temperature: 98.1 DegF (08/28/23 07:33:00) Temperature Route: Oral (08/28/23 07:33:00) Pulse Rate: 69 bpm (08/28/23 07:33:00) Respiratory Rate: 18 br/min (08/28/23 07:33:00) Systolic Blood Pressure: 106 mm Hg (08/28/23 07:33:00) Diastolic Blood Pressure: 77 mm Hg (08/28/23 07:33:00) Blood pressure sites: Arm, right (08/28/23 07:33:00) Mean Arterial Pressure: 87 mm Hg (08/28/23 07:33:00) Pulse Pressure: 29 mm Hg (08/28/23 07:33:00) Oxygen Saturation: 96 % (08/28/23 07:33:00) Mode of Delivery (Oxygen): Room air (08/28/23 07:33:00) Early Warning Score: 1 (08/28/23 07:34:13) ? . Physical Exam General?NAD, AAO HEENT?PERRLA, oropharynx clear, moist mucus membranes Pulm?CTA bilaterally, no wheezes/rhonchi/rales CV?RRR, +S1/S2, no murmurs/rubs GI?Soft, nontender, nondistended, no organomegaly, bowel sounds are present Neuro?Moves all extremities MS?no obvious deformity Psych?Mood appropriate to situation?? Pending Results Add On Lab Order ordered on 08/24/2023 Add On Lab Order ordered on 08/25/2023 Home Health Face to Face ^HomeHealthFTF Results Discharge Labs BLOOD COUNT & DIFF WBC 6.0 k/mm3 ()?? 08/26/2023 08:58 RBC 3.72 m/mm3 (Low)?? 08/26/2023 08:58 Hgb 12.2 Gm/dL (Low)?? 08/26/2023 08:58 Hct 36.5 % (Low)?? 08/26/2023 08:58 MCV 98.1 femtoliters (High)?? 08/26/2023 08:58 MCH 32.8 pg ()?? 08/26/2023 08:58 MCHC 33.4 g/dL ()?? 08/26/2023 08:58 Platelet Count 178 k/mm3 ()?? 08/26/2023 08:58 RDW-SD 45.1 femtoliters ()?? 08/26/2023 08:58 MPV 10.2 femtoliters ()?? 08/26/2023 08:58 Nucleated RBC (Automated) 0.0 #/100 WBC'S ()?? 08/26/2023 08:58 Abs. NRBC 0.0 k/mm3 ()?? 08/26/2023 08:58 Abs. Neut 3.7 k/mm3 ()?? 08/26/2023 08:58 Abs. Lymph 1.6 k/mm3 ()?? 08/26/2023 08:58 Abs. Meade 0.3 k/mm3 (Low)?? 08/26/2023 08:58 Abs. Eo 0.3 k/mm3 ()?? 08/26/2023 08:58 Abs. Baso 0.0 k/mm3 ()?? 08/26/2023 08:58 Neut % 62.3 % ()?? 08/26/2023 08:58 Lymph % 26.8 % ()?? 08/26/2023 08:58 Meade % 5.7 % ()?? 08/26/2023 08:58 Eos % 4.3 % ()?? 08/26/2023 08:58 Baso % 0.7 % ()?? 08/26/2023 08:58 Imm Gran 0.2 % ()?? 08/26/2023 08:58 Abs. Imm Gran 0.0 k/mm3 ()?? 08/26/2023 08:58 ?? CARDIAC High Sensitivity Troponin (HSTnT) 20 ng/L ()?? 08/24/2023 19:50 ? CHEM GENERAL Sodium 133 mmol/L ()?? 08/27/2023 00:28 Potassium 4.1 mmol/L ()?? 08/27/2023 00:28 Chloride 97 mmol/L (Low)?? 08/27/2023 00:28 Bicarbonate Level 23 mmol/L ()?? 08/27/2023 00:28 Anion Gap 13 ()?? 08/27/2023 00:28 Glucose Level 91 mg/dL ()?? 08/27/2023 00:28 BUN 16 mg/dL ()?? 08/27/2023 00:28 Creatinine-Blood 1.1 mg/dL ()?? 08/27/2023 00:28 Estimated GFR Creatinine 72 ML/MIN/1.73 M2 ()?? 08/27/2023 00:28 Calcium 9.7 mg/dL ()?? 08/27/2023 00:28 Magnesium 2.0 mg/dL ()?? 08/24/2023 15:56 Protein, Total 7.0 Gm/dL ()?? 08/26/2023 08:58 Albumin 4.8 Gm/dL ()?? 08/26/2023 08:58 AG Ratio 2.2 ()?? 08/26/2023 08:58 Alkaline Phosphatase 48 units/L ()?? 08/26/2023 08:58 Lipase 41 units/L ()?? 08/24/2023 15:56 AST (SGOT) 49 units/L (High)?? 08/26/2023 08:58 ALT (SGPT) 67 units/L (High)?? 08/26/2023 08:58 Bilirubin, Total 0.4 mg/dL ()?? 08/26/2023 08:58 Vitamin B12 Level 617 pg/mL ()?? 08/24/2023 15:56 ?? ENDOCRINE/TUMOR MARKER TSH 268.00 uIU/mL (High)?? 08/24/2023 15:56 Free T4 0.22 ng/dL (Low)?? 08/27/2023 00:28 T3, Free 0.6 pg/mL (Low)?? 08/25/2023 05:46 ? TOXICOLOGY/TDM Ethanol, Serum or Plasma NONE DETECTED mg/dL ()?? 08/24/2023 15:56 Barbiturate Screen, Urine NONE DETECTED ()?? 08/25/2023 16:00 Cannabinoid Screen, Urine NONE DETECTED ()?? 08/25/2023 16:00 Cocaine Metabolite Screen, Urine NONE DETECTED ()?? 08/25/2023 16:00 Benzodiazepine Screen, Urine NONE DETECTED ()?? 08/25/2023 16:00 Amphetamine Screen, Urine NONE DETECTED ()?? 08/25/2023 16:00 Opiate Screen, Urine NONE DETECTED ()?? 08/25/2023 16:00 ? UA/URINALYSIS Appear/Color, Urine YELLOW ()?? 08/25/2023 16:00 Specific Eolia, Urine 1.033 (High)?? 08/25/2023 16:00 pH, Urine 6.0 ()?? 08/25/2023 16:00 Albumin, Urine 1+ (Abnormal)?? 08/25/2023 16:00 Glucose, Urine NEGATIVE ()?? 08/25/2023 16:00 Ketones, Urine NEGATIVE ()?? 08/25/2023 16:00 Bilirubin, Urine NEGATIVE ()?? 08/25/2023 16:00 Hemoglobin, Urine NEGATIVE ()?? 08/25/2023 16:00 Nitrite, Urine NEGATIVE ()?? 08/25/2023 16:00 Leukocyte, Urine NEGATIVE ()?? 08/25/2023 16:00 Urobilinogen NORMAL mg/dL ()?? 08/25/2023 16:00 WBC's, Urine NONE SEEN /HPF ()?? 08/25/2023 16:00 RBC's, Urine NONE SEEN /HPF ()?? 08/25/2023 16:00 Squamous Epith <1 /HPF ()?? 08/25/2023 16:00 Hyaline Cast 2 LPF ()?? 08/25/2023 16:00 Mucus MODERATE /LPF ()?? 08/25/2023 16:00 Hold Urine Culture Testing available 48 hours from time of collection. ()?? 08/25/2023 16:00 ? URINE OTHER Est Creatinine Clearance 67.62 mL/min ()?? 08/27/2023 16:09 ? VIROLOGY COVID-19 PCR Specimen Source NASAL ()?? 08/24/2023 15:03 COVID-19 PCR Result NEGATIVE ()?? 08/24/2023 15:03 ? Microbiology ?? COVID-19 (2019 Novel Coronavirus) PCR?? Completed?? Source: Nasal Body Site: Nose Collected Dt/Tm: 08/24/2023 15:31 Last Updated Dt/Tm: 08/24/2023 16:50 ? >35 minutes spent on discharge * Jo LO, Agapito B: MODIFY, PERFORM Event Display: Patient Education/Instruction Authored Date: Inpatient Adult Discharge Instructions [address] [id number] Name: BANDAR YEPEZ : 1960 Visit: 08/24/2023 20:03:00 Current Date: 08/28/2023 10:57 Account: [id number] Inpatient Adult Discharge Instructions We would like [...] and their families. Surveys are administered by [employer] ?? If further treatment with your primary care physician or another doctor is recommended, it is important for you to keep the appointment. Call your primary care physician or return to the Emergency Department immediately if your condition worsens, fails to improve, or new symptoms develop. If you need to find a doctor, you can call [facility] Next Safety Link for a referral at [phone] or toll free at [phone] ([phone]) or log in to [email or web address].. ?? [facility], in keeping with [facility] guidance, no longer requires face masks for [...] a health care sourav of your choosing. [employer] is a website that allows you to securely view your medical information including your hospital discharge summary, office visit summaries, medications and follow-up visits. You can also request appointments, renew medications, and request access to your medical information using a health care sourav of your choosing, or just ask a question. You can enroll at [email or web address] or register during your next office visit. You have been discharged from [facility], Patient Care Unit: S3. If you have any questions regarding these instructions after you leave, please call us and we will be happy to assist you. [facility] Your Care Team Attending Physician Norm ESPITIA, Leah Consulting Providers Obey BATES, Dimitris Kumar MD, Khalif Medina MD, Amanda Discharging Providers Leah Zheng MD Reason for Admission General medical Your Diagnosis Hypothyroidism Tests Performed Below is a partial list of the tests performed during your hospitalization. You may have had other tests and procedures not included in this list. Please discuss all test results with your provider. Alcohol Level Amphetamine Urine Screen Barbiturate Urine Screen Basic Metabolic Panel Benzodiazepine Urine Screen BUN CALCIUM Cannabinoid Urine Screen CBC w/ Differential Cocaine Urine Screen Comprehensive Metabolic Panel COVID-19 (2019 Novel Coronavirus) PCR CREATININE ELECTROLYTES FREE T3 FREE T4 GLUCOSE High??Sensitivity??Troponin T Lipase Magnesium Level Opiate Screen Urine T4 Free TSH with T4 Reflex (Adults Only) Urinalysis w/hold for Urine Culture VITAMIN B12 CT Head/Brain W/O Contrast US Retroperitoneum Comp XR Chest 2 Views Frontal and Lat Primary Care Provider Jimi Schumacher MD Advance Directive Health Care Proxy on File No Patient refuses to discuss Discharge Vitals Temperature: 98.1 DegF Height: 175 cm Pulse Rate: 69 bpm Weight: 92 kg Respiratory Rate: 18 br/min Body Mass Index:??30.04 kg/m2??Critical Systolic Blood Pressure: 106 mm Hg Body surface area: 2.11 Diastolic Blood Pressure: 77 mm Hg ?? Oxygen Saturation: 96 % ?? Studies Pending All tests and labs ordered during this hospital stay have been completed unless listed below. Please discuss all pending results with your provider listed above in these instructions. ?? Add On Lab Order What to do next Instructions From Your Doctor Discharge Orders You Need to Schedule the Following Appointments Follow Up with??Please follow up at [facility] on September 05 at 10am phone number = [phone] Follow Up with??Jimi Schumacher MD When:??In 0 days Where: [address] [place] [address]- Business (1) Discharge Medications BANDAR YEPEZ :1960 Visit Date:08/24/2023 Medications: Please continue your medications until treatment is completed or stopped by your provider. Medications not listed below should be discontinued. Discuss any questions related to medications with your provider. What How Much When Instructions Next Dose New Acamprosate (acamprosate 333 mg oral delayed release tablet) 2 tab(s) Oral 3 times a day Duration: 30 Days Pickup at [place] [address] 10/4 3pm New Melatonin (melatonin 3 mg oral tablet) 3 Milligram Oral Daily at Bedtime as needed for Insomnia Duration: 14 Days Pickup at [place] [address] at bedtime if needed New Risperidone (risperiDONE 0.25 mg oral tablet) 1 tab(s) Oral Daily at Bedtime Duration: 4 Days Pickup at [place] [address] 08/28 9pm Changed Divalproex Sodium (divalproex sodium 250 mg oral enteric coated tablet) 250 Milligram Oral Twice a day Duration: 60 Days Pickup at [place] [address] 08/28 9pm Changed Levothyroxine (levothyroxine 0.1 mg oral tablet) 200 Microgram Oral Daily Duration: 60 Days Dose will be adjusted according to repeat lab. Lab to be done in 4 weeks. ?? Pickup at [place] [address] 08/29 7am Pharmacy Information [place] [address]: [address] [place] [address] [phone] ?? What How Much When Comments Stop Taking Ibuprofen (ibuprofen 800 mg oral tablet) 1 tab(s) Oral Stop Taking lurasidone (Latuda 20 mg oral tablet) 1 tab(s) Oral Daily Stop Taking Nicotine (nicotine 21 mg/ 24 hr transdermal film, extended release) 1 patch(es) Topically Daily Duration: 7 Days Stop Taking Sertraline (sertraline 100 mg oral tablet) 1.5 tab(s) Oral Daily Stop Taking Sertraline (Zoloft 100 mg oral tablet) 1 tab(s) Oral Daily Test Results Below is a partial list of the most recent Laboratory test results done prior to this discharge. You may have had other tests and procedures not included in this list. Please discuss all test resultswith your provider. Est Creatinine Clearance - 67.62 mL/min (08/27/2023) Alcohol Level (08/24/2023) ???Ethanol, Serum or Plasma - NONE DETECTED Amphetamine Urine Screen (08/25/2023) ???Amphetamine Screen, Urine - NONE DETECTED Barbiturate Urine Screen (08/25/2023) ???Barbiturate Screen, Urine - NONE DETECTED Basic Metabolic Panel (08/25/2023) ???Sodium - 139 mmol/L???Potassium - 4.3 mmol/L???Chloride - 100 mmol/L???Bicarbonate Level - 27 mmol/L???Anion Gap - 12???Glucose Level - 90 mg/dL???BUN - 25 mg/dL???Creatinine-Blood - 1.6 mg/dL???Estimated GFR Creatinine - 47 ML/MIN/1.73 M2???Calcium - 10.0 mg/dL Benzodiazepine Urine Screen (08/25/2023) ???Benzodiazepine Screen, Urine - NONE DETECTED BUN (08/27/2023) ???BUN - 16 mg/dL CALCIUM (08/27/2023) ???Calcium - 9.7 mg/dL Cannabinoid Urine Screen (08/25/2023) ???Cannabinoid Screen, Urine - NONE DETECTED CBC w/ Differential (08/26/2023) ???WBC - 6.0 k/mm3???RBC - 3.72 m/mm3???Hgb - 12.2 Gm/dL???Hct - 36.5 %???MCV - 98.1 femtoliters???MCH - 32.8 pg???MCHC - 33.4 g/dL???Platelet Count - 178 k/mm3???RDW-SD - 45.1 femtoliters???MPV - 10.2 femtoliters???Nucleated RBC (Automated) - 0.0 #/100 WBC'S???Abs. NRBC - 0.0 k/mm3???Abs. Neut - 3.7 k/mm3???Abs. Lymph - 1.6 k/mm3???Abs. Meade - 0.3 k/mm3???Abs. Eo - 0.3 k/mm3???Abs. Baso - 0.0 k/mm3???Neut % - 62.3 %???Lymph % - 26.8 %???Meade % - 5.7 %???Eos % - 4.3 %???Baso % - 0.7 %???Imm Gran - 0.2 %???Abs. Imm Gran - 0.0 k/mm3 Cocaine Urine Screen (08/25/2023) ???Cocaine Metabolite Screen, Urine - NONE DETECTED Comprehensive Metabolic Panel (08/26/2023) ???Sodium - 136 mmol/L???Potassium - 4.8 mmol/L???Chloride - 98 mmol/L???Bicarbonate Level - 27 mmol/L???Anion Gap - 11???Glucose Level - 95 mg/dL???BUN - 21 mg/dL???Creatinine-Blood - 1.3 mg/dL???Estimated GFR Creatinine - 60 ML/MIN/1.73 M2???Calcium - 9.9 mg/dL???Protein, Total - 7.0 Gm/dL???Albumin - 4.8 Gm/dL???AG Ratio - 2.2???Alkaline Phosphatase - 48 units/L???AST (SGOT) - 49 units/L???ALT(SGPT) - 67 units/L???Bilirubin, Total - 0.4 mg/dL COVID-19 (2019 Novel Coronavirus) PCR (08/24/2023) ???COVID-19 PCR Specimen Source - NASAL???COVID-19 PCR Result - NEGATIVE CREATININE (08/27/2023) ???Creatinine-Blood - 1.1 mg/dL???Estimated GFR Creatinine - 72 ML/MIN/1.73 M2 ELECTROLYTES (08/27/2023) ???Sodium - 133 mmol/L???Potassium - 4.1 mmol/L???Chloride - 97 mmol/L???Bicarbonate Level - 23 mmol/L???Anion Gap - 13 FREE T3 (08/25/2023) ???T3, Free - 0.6 pg/mL FREE T4 (08/24/2023) ???Free T4 - 0.15 ng/dL GLUCOSE (08/27/2023) ???Glucose Level - 91 mg/dL High??Sensitivity??Troponin T (08/24/2023) ???High Sensitivity Troponin (HSTnT) - 20 ng/L Lipase (08/24/2023) ???Lipase - 41 units/L Magnesium Level (08/24/2023) ???Magnesium - 2.0 mg/dL Opiate Screen Urine (08/25/2023) ???Opiate Screen, Urine - NONE DETECTED T4 Free (08/27/2023) ???Free T4 - 0.22 ng/dL TSH with T4 Reflex (Adults Only) (08/24/2023) ???TSH - 268.00 uIU/mL Urinalysis w/hold for Urine Culture (08/25/2023) ???Appear/Color, Urine - YELLOW???Specific Eolia, Urine - 1.033???pH, Urine - 6.0???Albumin, Urine - 1+???Glucose, Urine - NEGATIVE???Ketones, Urine - NEGATIVE???Bilirubin, Urine - NEGATIVE???Hemoglobin, Urine - NEGATIVE???Nitrite, Urine - NEGATIVE???Leukocyte, Urine - NEGATIVE???Urobilinogen - NORMAL? ?WBC's, Urine - NONE SEEN? ?RBC's, Urine - NONE SEEN? ?Squamous Epith - <1 /HPF? ?Hyaline Cast - 2 LPF???Mucus - MODERATE???Hold Urine Culture - Testing available 48 hours from time of collection. VITAMIN B12 (08/24/2023) ???Vitamin B12 Level - 617 pg/mL Immunizations This Visit Given Vaccine Date influenza virus vaccine, inactivated 08/27/2023 Allergies (NKA means No Known Allergies) Percocet 7.5/325 morphine Problems Active Problems??(6) Alcohol?? Anemia?? Bipolar disease, chronic?? PE - Pulmonary embolism?? Post traumatic stress disorder (PTSD)?? Tobacco user?? Education Materials Below is the list of Educational Leaflet Providered with your Discharge Instructions. Valuables and Belongings I fully understand and agree that [facility] accepts no responsibility for all my [...] to send valuables and belongings home. ?? Safe envelope number: [id number] Review of Valuable and Belonging List: With witness Date for Pt to Sign Valuables/Belongings: 08/26/23 09:06:00 ?? Other Discharge Information ? Case Management Discharge Plan?? Discharge Plan?? Discharge Level of Care at Discharge: Home/Fdc/Foster Care ?? Pulmonary Rehab Status?? Pulmonary Rehab Discharge Status?? [...] are strongly encouraged to quit. Please call [facility] Next Safety Link at [phone] or [phone] ([phone]) or log in to [email or web address] for referrals to smoking cessation programs. ?? 015 Suicide & Crisis Lifeline is available 17/06 if you or someone you know needs to find a reason to keep living. By calling 435 you'll be connected to a skilled, trained counselor at a crisis center in your area. INPATIENT DISCHARGE INSTRUCTIONS SIGNATURE PAGE BANDAR YEPEZ Location:[facility] Registration Date and Time:08/24/2023 20:03 EDT Primary Care Physician: Winsome ESPITIA , Jimi, Attending Physician: Norm ESPITIA, [facility], I BANDAR YEPEZ, have received the above patient education materials/instructions and have verbalized understanding. If ambulance or transport services are being used I further acknowledge beinggiven a choice of service. ?? If you need to contact me, please call me at this number: . Patient/Comptroller Name: Patient/Comptroller Signature: Relationship to Patient: Witness Name/Signature: Date: * Agapito Osorio RN B: PERFORM, SIGN, VERIFY Event Display: Patient Education Handout Authored Date: Patient Care team information Care Team Personnel Name: Jimi Schumacher MD Position: [facility] Outreach Member Role: PCP Address: Address: [address] [place] [id number] [[email or web address]] Name: Aarti Ley RN Position: [facility] SN RN Member Role: Primary Care Nurse Name: *Tommy LAKE Attending Position: [facility] ED Medicine Name: Taty Sutherland RN Position: [facility] ED RN W/OE and Tasks Member Role: Patient Care Provider Name: Rosalia Solomon Position: [facility] ED TA [facility] Member Role: Patient Care Provider Care Team Related Persons Name: RUTHIE MIXON Address: [address] [place] [address] Name: CHELSEA YEPEZ Address: home [address] [place] [id number]
--- OUTSIDE RECORDS SUMMARY | 2024-08-02 15:46 | XMS_ITS | Continuity of Care Document ---
Author Organization [facility] ter Address [address] [place] [id number]- Care Team Providers Care Treatment Supervisor Name Role Phone Not on Staff, PCP Primary Care Physician Unavail able Encounter [facility] Date(s): 03/13/24 - 03/13/[address] [address]- Encounter Diagnosis Schizophrenia(Final) - 03/13/24 Hypothyroidism(Final) - 03/13/24 Discharge Disposition: Transfer to [facility] Facility Attending Physician: Jazmine Hawk MD Admitting Physician: Jazmine Hawk MD Referring Physician: Not on Staff, Referring [...] 0 Refills, Maintenance, 08/28/23 10:01:00EDT, CR Tablet, [facility], Partial fill upon patient request if the prescription is for a schedule II opioid drug., 175, cm, 08/28/23 7:... Start Date: 08/28/23 Stop Date: 09/27/23 Status: Ordered divalproex sodium 250 mg oral enteric coated tablet = 250 mg, By Mouth, 2 times a day, # 120 tablet, 0 Refills, Maintenance, 08/28/23 9:58:00 EDT, Tablet, [facility], Partial fill upon patient [...] 0 Refills, Maintenance, 08/28/23 9:58:00 EDT, Tablet, [facility], Partial fill upon patient request if the prescription... Start Date: 08/28/23 Stop Date: 10/27/23 Status: Ordered potassium chloride 20 mEq oral tablet, extended release 1 tablet = 20 mEq, By Mouth, Daily, # 7 tablet, 0 Refills, Maintenance, 01/14/24 13:41:00 EST, ER Tablet, [facility], Partial fill upon patient request if the prescription is for a schedule II opioid drug., 175, cm, 08/28/23 10:58:00 EDT... Start Date: 01/14/24 Stop Date: 01/21/24 Status: Ordered risperiDONE 0.25 mg oral tablet 0.25 mg, 1, tablet, By Mouth, Daily at bedtime, # 4 tablet, Refills 0, Tot. Refills 0, Maintenance,08/28/23 9:59:00 EDT, Route to Pharmacy Electronically, [facility], Partial fill uponpatient request [...] recent to oldest [Reference Range]: 1 2 Oxygen Saturation [94-100 %] 99 % (03/13/24 3:56 PM) 97 % (03/13/24 7:49 AM) Pulse Rate [55-90 bpm] 82 bpm (03/13/24 3:56 PM) 83 bpm (03/13/24 7:49 AM) Blood Pressure [90-138/55-84 mm Hg] 102/ 62mm Hg (03/13/24 3:56 PM) 114/88mm Hg (03/13/24 7:49 AM) Respiratory Rate [16-30 br/min] 18 br/mi n (03/13/24 3:56 PM) 19 br/min (03/13/24 7:49 AM) Temperature [96.8-100.4 DegF] 98 DegF (03/13/24 3:56 PM) 97.7 DegF (03/13/24 7:49 AM) Mode of Delivery (Oxygen) Room air (03/13/24 3:56 PM) Room air (03/13/24 7:49 AM) Blood pressure sites Arm, left (03/13/24 3:56 PM) Arm, left (03/13/24 7:49 AM) Temperature Route Oral (03/13/24 3:56 PM) Oral (03/13/24 7:49 AM) Social History Social History Type Response Smoking Status 10 or more cigarette s (1/2 pack or more)/day in last 30 days entered on: 05/12/19 Sex Patient Care team information Care Team Personnel Name: Aarti Ley RN Position: [facility] SN RN Member Role: Primary Care Nurse Name: Not on Staff, PCP Position: [facility] Physician (General Medicine) Member Role: PCP Care Team Related Persons Name: RUTHIE MIXON Address: home [address] [place] [address] Name: CHELSEA YEPEZ Address: [address] [place] [address]
[2024-08-02 16:00] LABS: Alanine Aminotransferase 17 U/L (0-40); Albumin Level 4.5 g/dL (3.5-5.0); Alkaline Phosphatase 57 U/L (39-117); Anion Gap 15 (12-20); Aspartate Amino Transferase 25 U/L (5-37); Bilirubin Total 0.6 mg/dL (0.0-1.0); Blood Urea Nitrogen 22 mg/dL (9-16); Calcium 9.7 mg/dL (8.4-10.2); Carbon Dioxide 29 mmol/L (22-29); Chloride 98 mmol/L (96-108); Creatinine Clr Calc Pharmacy 99.3; Estimated Glomerular Filt Rate > 60; Glucose Random 95 mg/dL (60-115); Magnesium 2.2 mg/dL (1.6-2.6); Sodium 138 mmol/L (135-145); Total Protein 7.4 g/dL (6.5-8.0)
--- NOTE | 2024-08-02 16:11 | ED_ITS ---
HPI - Male Genitourinary General Chief complaint: Urogenital-Male Stated complaint: URINE RETENTION X4D, FROM SNF PER EMS Time Seen by Provider: 08/02/24 16:04 Source: patient and EMS Mode of arrival: EMS Limitations: no limitations History of Present Illness ED Provider: Dr. Rosemary Cifuentes HPI Narrative: Patient comes to the emergency room complaining of urinary retention and constipation since this morning. Patient states that earlier today he was given a suppository and had a good bowel movement. Also, patient complaining of mild GERD . Patient denies chest pain or shortness of breath, no nausea vomiting or diarrhea. No abdominal pain Related Data Previous Rx's ?Medication ?Instructions ?Recorded polyethylene glycol 3350 17 17 g PO DAILY PRN laxative effect 08/02/24 gram/dose oral powder (Miralax) #238 grams Allergies Allergy/AdvReac Type Severity Reaction Status Date / Time morphine [MORPHINE] Allergy Severe HIVES Verified 08/02/24 16:18 Review of Systems 2 Review of Systems: Constitutional : No Weight loss, No Fever, No Chills, No Night Sweats, No Fatigue, No Malaise ENT/Mouth : No Hearing loss, No Ear Pain, No Nasal Congestion, No Sinus Pain, No Hoarseness, No sore throat, No Rhinorrhea, No Swallowing Difficulty Eyes: No Eye Pain, No Swelling, No Redness, No Foreign Body, No Discharge, No Vision Changes Cardiovascular : No Chest Pain, No SOB, No Dyspnea on Exertion, No Orthopnea, No Edema, No Palpitations Respiratory : No Cough, No Sputum, No Wheezing, No Smoke Exposure, No Dyspnea Gastrointestinal : complaining of GERD, No Nausea, No Vomiting, No Diarrhea, complaining of Constipation, No abdominal Pain, No Hematochezia, No Melena Genitourinary : complaining of urinary retention, No Dysuria, No Urinary Frequency, No Hematuria, No Urinary Incontinence, No Urgency, No Flank Pain, No Urinary Flow Changes, No Hesitancy Musculoskeletal : No joint pain, No Myalgias, No Joint Swelling Skin : No Skin Lesions, No rash Neuro : No Weakness, No Numbness, No Paresthesias, No Loss of Consciousness, No Dizziness, No Headache Psych : No Anxiety/Panic, No Depression, No SI/HI/AH/VH, No Social Issues, Heme/Lymph: No Bruising, No Bleeding,No Lymphadenopathy Endocrine : No Polyuria, No Polydipsia, No Temperature Intolerance [facility] Social History Social History Smoked in Last 30 Days: Yes Use of substances other than those prescribed or required for medical reasons: No Advance Directives: No Advance Directives Information Provided: No Do you have a plan to hurt others: No Plan Physical Exam 2 Vital Signs: Vital Signs: Last Vital Signs Temp 98.2 F 08/02/24 16:38 Pulse 93 08/02/24 16:38 Resp 14 08/02/24 16:38 BP 121/78 08/02/24 16:38 Pulse Ox 99 08/02/24 16:38 O2 Del Method Room Air 08/02/24 16:38 BMI result Body Mass Index 29.0 Const: Other: Appearance: Alert. Oriented X3. No acute distress. well-appearing Eyes: Pupils equal, round and reactive to light. ENT: Pharynx normal. Neck: Normal inspection. Neck supple. No lymph nodes noted. No crepitus CVS: Normal heart rate and rhythm. Pulses normal. Normal S1 and S2 Respiratory: No respiratory distress. Breath sounds normal. No Wheezing. No rales Abdomen: Soft and nontender. No rigidity. No distention. bladder scan shows 160 mL of urine. Skin: Skin warm and dry. Normal skin color. Normal skin turgor. Extremities: No lower extremity edema. No Lacerations. No Rash Neuro: Oriented X 3. No motor deficit. No sensory deficit. Moving all extremities. No slurred speech. CN 2 through 12 grossly intact Psych: calm, cooperative, normal affect Course Course Course Narrative: On physical exam, the bladder scan showed 160 mL of urine in the bladder. Patient urinated 150 mL right after. - Urine has been sent to the lab. - Patient given Tums Medications Administered Discontinued Medications Generic Name Dose Route Start Last Admin Trade Name Freq PRN Reason Stop Dose Admin Calcium Carbonate 1,500 mg 08/02/24 16:16 08/02/24 16:21 Calcium Carbonate 750 Mg Tab.Chew PO 08/02/24 16:17 1,500 mg ONCE ONE Administration Medical Decision Making Medical Decision Making [facility] Narrative: my interpretation of EKG: Normal sinus rhythm, heart rate 81, no ST segment depression or elevation, no T-wave inversion, QTC 418 - my interpretation of labs, patient's hemoglobin is a bit under 12. New for the patient. Patient is not on blood thinners. Recommendation to repeat CBC in 1-2 weeks. If still decreased, patient will need to be referred to GI. Otherwise patient is stable - patient was able to urinate by himself, no straight cath. Urine analysis does not show any UTI. Differential Diagnosis Differential Diagnoses: The differential diagnosis associated with the presentation includes ( Urinary retention, anxiety, constipation) Lab Data MDM Lab Attestation statement: I reviewed the patient's lab results. 08/02/24 15:18 08/02/24 15:18 Labs: Lab Results 08/02/24 08/02/24 Range/Units 15:18 16:12 WBC 6.6 (4.8-10.8) X10*3/uL RBC 3.55 L (4.60-5.80) X10*6/uL Hgb 11.8 L (14.0-18.0) g/dl Hct 33.5 L (42.0-52.0) % MCV 94.4 (80.0-98.0) fL MCH 33.2 H (27.0-33.0) pg MCHC 35.2 (31.0-36.0) g/dl RDW 16.6 H (11.0-16.0) % Plt Count 146 L (160-400) X10*3/uL MPV 10.4 (9.4-12.4) fL Immature Gran % (Auto) 0.3 (0.0-0.4) % Neut % (Auto) 65.9 (45-73) % Lymph % (Auto) 18.1 L (20-40) % [place] % (Auto) 11.0 (2-11) % Eos % (Auto) 4.1 H (0-4) % Baso % (Auto) 0.6 (0-2) % Lymph # (Auto) 1.2 (1.2-4.9) X10*3/uL [place] # (Auto) 0.7 (0.1-1.2) X10*3/uL Eos # (Auto) 0.3 (0.0-0.4) X10*3/uL Baso # (Auto) 0.0 (0.0-0.2) X10*3/uL Abs Immat Gran (auto) 0.02 (0.00-0.03) X10*3/uL Absolute Neuts (auto) 4.4 (2.0-8.3) x10*3/uL Absolute Nucleated RBC 0.000 (0.0-0.012) X10*3/uL Nucleated RBC % (auto) 0.0 (0.0-0.2) /100WBC Sodium 138 (135-145) mmol/L Potassium 4.0 (3.3-5.1) mmol/L Chloride 98 (96-108) mmol/L Carbon Dioxide 29 (22-29) mmol/L Anion Gap 15 (12-20) BUN 22 H (9-16) mg/dL Creatinine 0.83 (0.5-1.4) mg/dL Estim Creat Clear Calc 99.3 Estimated GFR > 60 Random Glucose 95 (60-115) mg/dL Calcium 9.7 (8.4-10.2) mg/dL Magnesium 2.2 (1.6-2.6) mg/dL Total Bilirubin 0.6 (0.0-1.0) mg/dL AST 25 (5-37) U/L ALT 17 (0-40) U/L Alkaline Phosphatase 57 (39-117) U/L Total Protein 7.4 (6.5-8.0) g/dL Albumin 4.5 (3.5-5.0) g/dL Urine Color Dark Yellow Urine Appearance Clear Urine pH 6.5 (5.0-9.0) Ur Specific [place] 1.025 (1.005-1.025) Urine Protein Negative (Neg-Trace) mg/dL Urine Glucose (UA) Negative (Negative) mg/dL Urine Ketones Trace (Negative) mg/dL Urine Blood Negative (Negative) Urine Nitrite Negative (Negative) Ur Leukocyte Esterase Negative (Negative) Discharge Plan Discharge Clinical Impression: Suprapubic pressure, Constipation Patient Disposition: Xfer Other Transfer Details: Gabrielle Avila Instructions: Constipation (ED) Additional Instructions: Please follow-up with your primary care physician tomorrow. If you have any worsening or new symptoms, please return to the emergency room or call 911 Prescriptions: New polyethylene glycol 3350 [Miralax] 17 gram/dose powder 17 g PO DAILY PRN (Reason: laxative effect) Qty: 238 0RF Print Language: Greenlandic
--- NOTE | 2024-08-02 16:17 | ECG_ITS ---
Test Reason : GERD Blood Pressure : / mmHG Vent. Rate : 081 BPM Atrial Rate : 081 BPM P-R Int : 182 ms QRS Dur : 090 ms QT Int : 360 ms P-R-T Axes : 051 -40 026 degrees QTc Int : 418 ms Normal sinus rhythm Left axis deviation Abnormal ECG When compared with ECG of 15-DEC-2018 03:08, No significant change was found Referred By: Rosemary Cifuentes Electronically Signed By:LUISA MARTIN
[2024-08-02] MEDS: Calcium Carbonate 750 MG TAB.CHEW 1500 MG PO (16:21)
[2024-08-02 16:26] LABS: Appearance Urine Clear; Color Urine Dark Yellow; Glucose Urine UA Negative (Negative); Leukocyte Esterase Urine Negative (Negative); Nitrite Urine Negative (Negative); PH 6.5 (5.0-9.0); Specific Gravity - Urine 1.025 (1.005-1.025); Urine Blood Negative (Negative); Urine Ketones Trace mg/dL (Negative); Urine Protein Negative (Neg-Trace)
--- NOTE | 2024-08-02 16:55 | PC.NURSE ---
Pt comes to ED today with c/o urinary retention since 07/31/24. States when he attempts to urinate he gets only a small dribble. Denies pain. VSS, A&Ox3, afebrile Pt attempted to urinate in urinal with no success, bladder scan performed immediately after showing 136 ml. Second attempt to urinate in urinal with night order selector and 150 mls produced--spec sent to lab. Pt also c/o GI upset and requests TUMS, Pt medicated per JAN. Awaiting disposition.
--- NOTE | 2024-08-02 17:49 | PC.NURSE ---
Spoke with WALLY Larios from [facility]. Rn to RN report given re: Pt care here and discharge information. Pt given the opportunity for questions and all questions answered to satisfaction. Pt awaiting transport back.
== END 2024-08-02 19:08 | disposition other institution (70) ==
PROVIDERS: Physician Assistant Medical; Emergency Provider Emergency Medicine; PCP Internal Medicine
DX: K59.00 Constipation, unspecified (principal); K21.9 Gastro-esophageal reflux disease without esophagitis; R10.2 Pelvic and perineal pain; R33.9 Retention of urine, unspecified; R94.31 Abnormal electrocardiogram [ECG] [EKG]; Z79.899 Other long term (current) drug therapy
CPT/HCPCS: 36415; 51798; 80053; 81003; 83735; 85025; 93005; 99285